=== PATIENT | female | born 1970 | race Caucasian/White ===

== ENCOUNTER → 2018-06-14 09:21 | Outpatient (CLI) | payer OTHER, SELFPAY ==
[2018-06-14 12:30] LABS: Absolute Lymphocyte Count 2.39 X10^3/ul (0.83-4.51); Absolute Neutrophil Count 4.3 X10^3/uL (2.0-7.7); Basophil# 0.03 X10^3/uL; Basophil% 0.4 % (0-1); Eosinophil# 0.13 X10^3/uL; Eosinophils% 1.8 % (0-5); Hematocrit 41.9 % (37-47); Hemoglobin 13.7 g/dl (12.0-15.0); Lymphocyte # 2.39 X10^3/ul (4.0); Lymphocyte % 32.7 % (19-41); Mean Corp Hgb Conc 32.7 g/gl (32-36); Mean Corpuscular Hgb 30.3 pg (27.0-32.0); Mean Corpuscular Volume 92.7 fL (81-99); Mean Platelet Vol. 9.5 fl (6.2-12.0); Monocyte# 0.42 X10^3/uL; Monocyte% 5.7 % (0-10); Neutrophil # 4.33 X10^3/uL (2.7-7.7); Neutrophil % 59.3 % (47-70); Platelet Count 305 K/mm3 (150-450); RBC Distribution Width CV 13.2 % (11.6-14.6); RBC Distribution Width SD 43.2 fl (35.1-43.9); Red Blood Count 4.52 M/mm3 (4.2-5.4); White Blood Count 7.3 K/mm3 (4.4-11.0)
[2018-06-14 12:37] LABS: POSITIVE COUNT NO; POSITIVE DIFFERENTIAL NO; POSITIVE MORPHOLOGY NO
[2018-06-14 12:43] LABS: Hemoglobin A1c 5.6 % (4.2-6.3)
[2018-06-14 12:49] LABS: Anion Gap 9 (5-15); BUN 13 mg/dL (7-18); BUN/Creat Ratio 16.5 RATIO (10-20); Calcium,Total 8.9 mg/dL (8.5-10.1); Chloride 102 mmol/L (98-107); Creatinine, Serum 0.79 mg/dL (0.55-1.02); EST Glomerular Filtration Rate 82 mL/min (>60); Est Glom Filt Rate - Afr Amer 100 mL/min (>60); Glucose 111 mg/dL (74-106); Potassium 3.7 mmol/L (3.5-5.1); Sodium Level 139 mmol/L (136-145)
== END ==
PROVIDERS: Family Provider Family Medicine; PCP Family Medicine; Visit Provider Family Medicine
DX: I10 Essential (primary) hypertension (principal); E87.6 Hypokalemia; R73.01 Impaired fasting glucose
CPT/HCPCS: 36415; 80048; 83036; 84443; 85025

== ENCOUNTER → 2018-12-06 | Outpatient (CLI) | payer OTHER, SELFPAY ==
--- NOTE | 2018-12-06 08:09 | BI_ITS ---
MAMMOGRAPHY - BILATERAL SCREENING 3-D TOMOSYNTHESIS REASON FOR EXAM: Female, 48 years old. Bilateral Screening 3-D tomosynthesis PERTINENT HISTORY: Breast cancer in paternal grandmother and several decade.. TECHNIQUE: 2-D mammograms and 3-D Tomosynthesis of the breast (s) were performed. CAD was performed. COMPARISON: July 04, 2017, September 28, 2011 FINDINGS: The breast composition is composed of scattered fibroglandular density. Scattered benign calcifications are seen. No dense spiculated masses or suspicious microcalcifications are identified. No architectural distortion is identified. There is no skin thickening or retraction. There has been no significant change since the prior study. BI/SCREEN MAMM (CAD) W/MIREYA BILAT IMPRESSION: No mammographic signs of malignancy. Routine yearly mammograms recommended. ASSESSMENT CATEGORY: BIRADS Category 2: Benign. A letter regarding these results will be sent to the patient by the facility within 30 days. FOLLOW UP RECOMMENDATION: Yearly follow up mammogram recommended. (A) Approximately 10% of breast cancers are not detected by mammography. A normal mammogram should not delay biopsy of a clinically suspicious abnormality. Electronically Signed: Nader Talavera MD at 17:54 EDT , Service support ,
== END | disposition home or self-care (01) ==
LOC: OPBI 08:07
PROVIDERS: Family Provider Family Medicine; PCP Family Medicine; Referring Provider Family Medicine; Visit Provider Family Medicine
DX: Z12.31 Encounter for screening mammogram for malignant neoplasm of breast (principal)
CPT/HCPCS: 77063; 77067

== ENCOUNTER → 2019-07-09 09:27 | Outpatient (CLI) | payer OTHER, SELFPAY ==
[2019-07-09 12:33] LABS: Absolute Lymphocyte Count 2.24 X10^3/uL (0.83-4.51); Absolute Neutrophil Count 4.6 X10^3/uL (2.0-7.7); Basophil# 0.03 X10^3/uL; Basophil% 0.4 % (0-1); Eosinophil# 0.19 X10^3/uL; Eosinophils% 2.5 % (0-5); Hematocrit 40.5 % (37-47); Lymphocyte # 2.24 X10^3/ul (4.0); Lymphocyte % 29.5 % (19-41); Mean Corp Hgb Conc 32.1 g/dL (32-36); Mean Corpuscular Volume 93.3 fL (81-99); Mean Platelet Vol. 9.5 fl (6.2-12.0); Monocyte% 6.6 % (0-10); NRBC Flagged by Analyzer 0 % (0-5); Neutrophil # 4.61 X10^3/uL (2.7-7.7); Neutrophil % 60.6 % (47-70); Platelet Count 283 K/mm3 (150-450); RBC Distribution Width CV 13.2 % (11.6-14.6); RBC Distribution Width SD 45.1 fl (35.1-43.9); Red Blood Count 4.34 M/mm3 (4.2-5.4); White Blood Count 7.6 K/mm3 (4.4-11.0)
[2019-07-09 12:48] LABS: ALB/GLOB Ratio 0.9 RATIO (0.9-2.4); AST(SGOT) 10 U/L (15-37); Alanine Aminotransfer ALT/SGPT 22 U/L (13-56); Albumin, Serum 3.7 g/dL (3.2-5.0); Alkaline Phosphatase 72 U/L (45-117); Anion Gap 3 (5-15); BUN 9 mg/dL (7-18); BUN/Creat Ratio 11.7 RATIO (10-20); Chloride 105 mmol/L (98-107); Creatinine, Serum 0.77 mg/dL (0.55-1.02); EST Glomerular Filtration Rate 85 mL/min (>60); Est Glom Filt Rate - Afr Amer 102 mL/min (>60); Globulin 4.2 g/dL (2.2-4.2); Glucose 101 mg/dL (74-106); Potassium 3.7 mmol/L (3.5-5.1); Protein, Total 7.9 g/dL (6.4-8.2); Sodium Level 138 mmol/L (136-145); Thyroid Stim Hormone (TSH) 2.58 uIU/mL (0.358-3.74)
== END ==
PROVIDERS: PCP Family Medicine; Visit Provider Family Medicine
DX: E87.6 Hypokalemia (principal); I10 Essential (primary) hypertension; R73.01 Impaired fasting glucose
CPT/HCPCS: 36415; 80053; 84443; 85025

== ENCOUNTER → 2020-01-07 | Outpatient (CLI) | payer OTHER, SELFPAY ==
--- NOTE | 2020-01-07 07:01 | BI_ITS ---
MAMMOGRAPHY - BILATERAL SCREENING REASON FOR EXAM: Female, 49 years old. Routine annual screening examination. PERTINENT HISTORY: Grandmother with breast cancer. TECHNIQUE: Digital bilateral breast mireya (3D mammographic acquisition) in the CC and MLO projections. 2-D mediolateral oblique (MLO) and craniocaudad (CC) views of both breasts were obtained. CAD: Full Field Digital Mammography with Computer Added Detection was performed. COMPARISON: Comparison is made with prior study dated 12/06/2018 and 07/04/2017. FINDINGS: Breast Composition: There are scattered areas of fibroglandular density. There are no dominant masses or suspicious calcifications. No other significant abnormalities are identified. There has been no significant change since the prior study. BI/SCREEN MAMM (CAD) W/MIREYA BILAT IMPRESSION: Stable bilateral screening mammogram. Yearly follow-up mammogram recommended. (A) ASSESSMENT CATEGORY: BIRADS Category 1: Negative. A letter regarding these results will be sent to the patient by the facility within 30 days. Approximately 10% of breast cancers are not detected by mammography. A normal mammogram should not delay biopsy of a clinically suspicious abnormality. [id number] Electronically Signed: Bobby Jerome, at 8:30 EDT , Service support ,
== END | disposition home or self-care (01) ==
LOC: OPBI 06:59
PROVIDERS: PCP Family Medicine; Referring Provider Family Medicine; Visit Provider Family Medicine
DX: Z12.31 Encounter for screening mammogram for malignant neoplasm of breast (principal)
CPT/HCPCS: 77063; 77067

== ENCOUNTER → 2020-02-12 | Outpatient (CLI) | payer OTHER, SELFPAY ==
[2020-02-12 15:49] VITALS: BMI 33.5
[2020-02-18 13:08] LABS: HPV APTIMA, High Risk Negative (Negative)
== END | disposition home or self-care (01) ==
PROVIDERS: PCP Family Medicine; Referring Provider Nurse Practitioner Women's Health; Visit Provider Nurse Practitioner Women's Health
DX: Z12.4 Encounter for screening for malignant neoplasm of cervix (principal)
CPT/HCPCS: 87624; 88175; G0145

== ENCOUNTER → 2020-05-20 | Outpatient (CLI) | payer OTHER, SELFPAY ==
[2020-02-12 15:49] VITALS: BMI 33.5
== END | disposition home or self-care (01) ==
LOC: LABSPEC 05-24 09:54
PROVIDERS: PCP Family Medicine; Referring Provider Family Medicine; Visit Provider Family Medicine
DX: J02.9 Acute pharyngitis, unspecified (principal); R09.81 Nasal congestion; R51.9 Headache, unspecified; Z03.818 Encounter for observation for suspected exposure to other biological agents ruled out
CPT/HCPCS: 87635; C9803; U0003

== ENCOUNTER → 2020-07-20 09:21 | Outpatient (CLI) | payer OTHER, SELFPAY ==
[2020-02-12 15:49] VITALS: BMI 33.5
[2020-07-20 13:08] LABS: Absolute Lymphocyte Count 2.51 X10^3/uL (0.83-4.51); Absolute Neutrophil Count 5.4 X10^3/uL (2.0-7.7); Basophil# 0.06 X10^3/uL; Basophil% 0.7 % (0-1); Eosinophil# 0.28 X10^3/uL; Eosinophils% 3.2 % (0-5); Hematocrit 40.7 % (37-47); Hemoglobin 13.6 g/dL (12.0-15.0); Lymphocyte # 2.51 X10^3/ul (4.0); Lymphocyte % 28.8 % (19-41); Mean Corp Hgb Conc 33.4 g/dL (32-36); Mean Corpuscular Hgb 31.1 pg (27.0-32.0); Mean Corpuscular Volume 92.9 fL (81-99); Mean Platelet Vol. 9.6 fl (6.2-12.0); Monocyte# 0.43 X10^3/uL; Monocyte% 4.9 % (0-10); NRBC Flagged by Analyzer 0 % (0-5); Neutrophil # 5.41 X10^3/uL (2.7-7.7); Neutrophil % 62.1 % (47-70); Platelet Count 339 K/mm3 (150-450); RBC Distribution Width CV 13.1 % (11.6-14.6); RBC Distribution Width SD 44.8 fl (35.1-43.9); Red Blood Count 4.38 M/mm3 (4.2-5.4); White Blood Count 8.7 K/mm3 (4.4-11.0)
[2020-07-20 13:17] LABS: Hemoglobin A1c 5.6 % (3.8-5.6)
[2020-07-20 13:28] LABS: Anion Gap 4 (5-15); BUN 13 mg/dL (7-18); BUN/Creat Ratio 17.2 RATIO (10-20); Calcium,Total 9.1 mg/dL (8.5-10.1); Chloride 106 mmol/L (98-107); Cholesterol 203 mg/dL (200); Creatinine, Serum 0.76 mg/dL (0.55-1.02); EST Glomerular Filtration Rate 86 mL/min (>60); Est Glom Filt Rate - Afr Amer 103 mL/min (>60); Glucose 114 mg/dL (74-106); High Density Lipoprotein 62 mg/dL; Potassium 3.7 mmol/L (3.5-5.1); Sodium Level 138 mmol/L (136-145); Thyroid Stim Hormone (TSH) 3.27 uIU/mL (0.358-3.74); Triglycerides 75 mg/dL; Very Low Density Lipoprotein 15 mg/dL (5-40)
== END ==
PROVIDERS: PCP Family Medicine; Visit Provider Family Medicine
DX: I10 Essential (primary) hypertension (principal); E87.6 Hypokalemia; R73.01 Impaired fasting glucose
CPT/HCPCS: 36415; 80048; 80061; 83036; 84443; 85025

== ENCOUNTER → 2021-01-11 07:03 | Outpatient (CLI) | payer OTHER, SELFPAY ==
[2020-08-25 09:22] VITALS: BMI 33.5
--- NOTE | 2021-01-11 07:05 | BI_ITS ---
MAMMOGRAPHY - BILATERAL SCREENING REASON FOR EXAM: Female, 50 years old. Routine annual screening examination. PERTINENT HISTORY: Screening TECHNIQUE: Digital bilateral breast mireya (3D mammographic acquisition) in the CC and MLO projections. 2-D mediolateral oblique (MLO) and craniocaudad (CC) views of both breasts were obtained. CAD: Full Field Digital Mammography with Computer Added Detection was performed. COMPARISON: 01/07/2020 FINDINGS: Breast Composition: Scattered There are no dominant masses or suspicious calcifications. No other significant abnormalities are identified. BI/SCRN MAMM (CAD)W/MIREYA BILAT IMPRESSION: Stable bilateral screening mammogram. Yearly follow-up mammogram recommended. (A) ASSESSMENT CATEGORY: BIRADS Category 1: Negative. A letter regarding these results will be sent to the patient by the facility within 30 days. Approximately 10% of breast cancers are not detected by mammography. A normal mammogram should not delay biopsy of a clinically suspicious abnormality. [id number] Electronically Signed: Eliseo Moses DO at 15:41 EDT Tel , Service support ,
== END ==
PROVIDERS: PCP Family Medicine; Visit Provider Nurse Practitioner Women's Health
DX: Z12.31 Encounter for screening mammogram for malignant neoplasm of breast (principal)
CPT/HCPCS: 77063; 77067

== ENCOUNTER → 2022-01-12 | Outpatient (CLI) | payer OTHER, SELFPAY ==
--- NOTE | 2022-01-12 07:32 | BI_ITS ---
MAMMOGRAPHY - BILATERAL SCREENING 3-D TOMOSYNTHESIS REASON FOR EXAM: Female, 51 years old. Annual screening mammogram. PERTINENT HISTORY: Paternal grandmother and 7 dictated. TECHNIQUE: 2-D mammograms and 3-D Tomosynthesis of the breast (s) were performed. CAD was performed. COMPARISON: 01/16/2021, 01/07/2020, 12/06/2018. FINDINGS: The breast composition is almost entirely fat. Stable scattered benign calcifications. No dense spiculated masses or suspicious microcalcifications are identified. No architectural distortion is identified. There is no skin thickening or retraction. BI/SCRN MAMM (CAD)W/MIREYA BILAT IMPRESSION: No interval change and no mammographic signs of malignancy. Routine yearly mammograms recommended. ASSESSMENT CATEGORY: BIRADS Category 2: Benign. A letter regarding these results will be sent to the patient by the facility within 30 days. FOLLOW UP RECOMMENDATION: Yearly follow up mammogram recommended. (A) Approximately 10% of breast cancers are not detected by mammography. A normal mammogram should not delay biopsy of a clinically suspicious abnormality. Electronically Signed: Nader Talavera MD at 15:17 EDT ,
== END | disposition home or self-care (01) ==
LOC: OPBI 07:31
PROVIDERS: PCP Family Medicine; Referring Provider Obstetrics & Gynecology; Visit Provider Obstetrics & Gynecology
DX: Z12.31 Encounter for screening mammogram for malignant neoplasm of breast (principal)
CPT/HCPCS: 77063; 77067

== ENCOUNTER → 2022-09-11 | Outpatient (CLI) | payer OTHER, SELFPAY ==
[2022-09-11 12:11] LABS: Absolute Lymphocyte Count 3.09 X10^3/uL (0.83-4.51); Absolute Neutrophil Count 4.2 X10^3/uL (2.0-7.7); Basophil# 0.05 X10^3/uL; Basophil% 0.6 % (0-1); Eosinophil# 0.16 X10^3/uL; Hematocrit 40.9 % (37-47); Lymphocyte # 3.09 X10^3/ul (0.83-4.51); Mean Corp Hgb Conc 31.8 g/dL (32-36); Mean Corpuscular Hgb 29.6 pg (27.0-32.0); Mean Corpuscular Volume 93.2 fL (81-99); Mean Platelet Vol. 9.6 fl (6.2-12.0); Monocyte# 0.38 X10^3/uL; Monocyte% 4.8 % (0-10); NRBC Flagged by Analyzer 0 % (0-5); Neutrophil # 4.21 X10^3/uL (2.7-7.7); Neutrophil % 53.2 % (47-70); Platelet Count 307 K/mm3 (150-450); RBC Distribution Width CV 13.6 % (11.6-14.6); RBC Distribution Width SD 46.3 fl (35.1-43.9); Red Blood Count 4.39 M/mm3 (4.2-5.4); White Blood Count 7.9 K/mm3 (4.4-11.0)
[2022-09-11 12:14] LABS: ALB/GLOB Ratio 0.9 RATIO (0.9-2.4); AST(SGOT) 18 U/L (15-37); Alanine Aminotransfer ALT/SGPT 24 U/L (13-56); Albumin, Serum 3.7 g/dL (3.2-5.0); Alkaline Phosphatase 82 U/L (45-117); Anion Gap 5 (5-15); BUN 11 mg/dL (7-18); BUN/Creat Ratio 13.9 RATIO (10-20); Calcium,Total 9.7 mg/dL (8.5-10.1); Chloride 106 mmol/L (98-107); Cholesterol 184 mg/dL (200); Creatinine, Serum 0.79 mg/dL (0.55-1.02); EST Glomerular Filtration Rate 81 mL/min (>60); Est Glom Filt Rate - Afr Amer 97 mL/min (>60); Globulin 4.2 g/dL (2.2-4.2); Glucose 130 mg/dL (74-106); High Density Lipoprotein 56 mg/dL; Potassium 3.9 mmol/L (3.5-5.1); Protein, Total 7.9 g/dL (6.4-8.2); Sodium Level 140 mmol/L (136-145); Triglycerides 128 mg/dL; Very Low Density Lipoprotein 26 mg/dL (5-40)
== END | disposition home or self-care (01) ==
LOC: BIMLAB 09:00
PROVIDERS: PCP Internal Medicine; Referring Provider Internal Medicine; Visit Provider Internal Medicine
DX: I10 Essential (primary) hypertension (principal); R73.09 Other abnormal glucose
CPT/HCPCS: 36415; 80053; 80061; 83036; 85025

== ENCOUNTER 2023-01-10 09:35 | Day surgery (SDC) | payer OTHER, SELFPAY ==
[2023-01-10] VITALS (7 sets, daily range): BP systolic 112–160; BP diastolic 73–91; PULSE 67–81; RESP 16–18; TEMP 36.5–37.1; O2SAT 98–100; BMI 33.2
[2023-01-10] MEDS: Lactated Ringers 1,000 ML 15 ML IV (10:02)
--- NOTE | 2023-01-10 10:07 | HP.PCM_ITS ---
[facility] - General General Date of Admission: 01/10/23 Date of Service: 01/10/23 Chief Complaint: Screening colonoscopy [facility] Narrative WERO BURTON, is a 52 F who presents today for screening colonoscopy. She has past medical history of mild hypertension. She does not have any abdominal pain. She is not having nausea vomiting or diarrhea. She does not have any lower GI bleeding or change in bowel habits. Overall she feels very well. PENDING SALE TO [facility] Medical History Alcohol use Non-smoker Osteoarthritis Seasonal allergies Wears glasses Home Medications hydrochlorothiazide 25 mg tablet 25 mg PO DAILY #30 tabs 02/18/17 [Rx Last Taken Unknown] potassium chloride 10 mEq capsule,extended release 20 meq PO DAILY 08/23/22 [History Last Taken Unknown] Allergy/AdvReac Type Severity Reaction Status Date / Time tree and shrub pollen Allergy Mild SINUS Verified 01/10/23 09:52 CONGESTION Family History Father Pancreatic cancer Mother Hypertension Arthritis Multiple myeloma Crohn disease Osteoporosis Thyroid disorder Grandmother Breast cancer Brother Hypertension Grandmother COPD (chronic obstructive pulmonary disease) Surgical History History of hip replacement History of release of tendon uterine ablation uterine fibroid removal Social History adopted: No household members: spouse and children number of children: 3 current occupational status: employed current occupation: teacher - [employer] history of recent travel: No sexually active: Yes Smoking Status: Never smoker Electronic Cigarette Use: not used alcohol intake: current alcohol intake frequency: holidays/special occasions only substance use type: does not use what type of physical activity do you participate in: walking, yoga and weight training frequency: 1-2 times per week seatbelt use: always do you feel safe at home: Yes additional social history: - [place] ROS Review of Systems ROS Unobtainable: other Constitutional Constitutional: Denies fatigue, fever(s), poor appetite, weight gain or weight loss ENT HEENT: Denies mouth lesions Cardiovascular Cardiovascular: Denies abdominal bloating, abdominal edema or abdominal pain Respiratory/Chest Respiratory/Chest: Denies change in mental status, change in phlegm color, chest congestion or chest tightness Gastrointestinal Gastrointestinal: Denies belching, bloating, change in bowel habits, change in stool character, chewing difficulty, coffee ground emesis, constipation, cramping, diarrhea, dyspepsia, dysphagia, early satiety, excessive flatus, fecal incontinence, heartburn, hematemesis, hematochezia, hemorrhoids, loose stools, melena, nausea, odynophagia, rectal bleeding, tenesmus, vomiting or weight changes Genitourinary Genitourinary: Denies abdominal discomfort, burning urination or itching Musculoskeletal Musculoskeletal: Reports as per HPI; Denies muscle weakness or myalgias Integumentary Integumentary: Denies jaundice Neurologic Neurologic: Denies lack of coordination or weakness Psychiatric Psychiatric: Denies confusion, depression, memory loss, mood swings, paranoia or suicidal ideation Endocrine Endocrinology: Denies systems reviewed and no addt'l complaints, except as documented Hematologic/Lymphatic Hematologic/Lymphatic: Denies anemia, easy bleeding, easy bruising or l ymphadenopathy Allergic/Immunologic Allergic/Immunologic: Denies systems reviewed and no addt'l complaints, except as documented Vital Signs Vital Signs Vital Signs: 01/10/23 09:52 01/10/23 09:52 Temperature 97.8 F Temperature Source Temporal Pulse Rate 81 Respiratory Rate 18 Respiratory Pattern Normal Blood Pressure 160/91 H Blood Pressure Mean 114 Blood Pressure Source Monitor Blood Pressure Position Semi-Fowlers Blood Pressure Location Right Arm Pulse Ox 99 Oxygen Delivery Method Room Air Weight Weight: 238 lb 1.588 oz Body Mass Index (BMI) 33.2 Physical Exam Const alert General Appearance: cooperative Orientation / Consciousness: oriented to person HEENT hearing grossly normal bilaterally Head and Scalp: normal to inspection Face and Sinus: face symmetric Nose: external nose normal Mouth: oral and palatal mucosa normal Eyes conjunctivae normal General Eye: normal appearance of both eyes Neck full ROM General: normal visual inspection Lymph Lymphatic: no lymphadenopathy noted Chest inspection of chest normal and palpation of chest normal Chest: symmetrical chest wall rise Resp normal respiratory effort Effort and Inspection: able to speak in complete sentences Cardio regular rate GI non-distended Percussion: normal to percussion Rectal Exam: deferred Neuro Speech: speech normal Gait (Neuro): normal gait Assessment & Plan Assessment/Plan (1) Encounter for screening for malignant neoplasm of colon: PLAN: She was explained alternatives, risk, benefits including not withstanding bleeding, infection, sepsis, perforation, need for emergent surgery . She will have an ASA of 2.
--- NOTE | 2023-01-10 11:26 | OP.CCLET_ITS ---
01/10/2023 Princess Souza Md Re : Colonoscopy procedure for Kell Emery Dear Harley This procedure was performed on Tuesday, January 10, 2023. My impressions and recommendations are as follows: Impressions : - Diverticulosis in the recto-sigmoid colon. - The examination was otherwise normal on direct and retroflexion views. - No specimens collected. Recommendations : - Discharge patient to home. - Resume regular diet. - Continue present medications. - Repeat colonoscopy in 10 years for screening purposes. My findings are described in the full procedure note, which is enclosed. If I can be of further assistance, please feel free to contact me at . Sincerely, Dexter Tao, 01/10/2023 11:26:09 AM This report has been signed electronically.
--- NOTE | 2023-01-10 11:26 | OP.COLON_ITS ---
Patient Name: Kell Emery Procedure Date: 01/10/2023 10:55 AM Date of : 1970 Age: 52 Procedure: Colonoscopy Indications: Screening for colorectal malignant neoplasm Providers: Dexter Tao DO Referring MD: Princess Souza Md Medicines: Monitored Anesthesia Care Patient Profile: This is a 52 year old female. Refer to note in patient chart for documentation of history and physical. Last Colonoscopy: none. The patient's first colonoscopy is today. Complications: No immediate complications. Procedure: Pre-Anesthesia Assessment: - Prior to the procedure, a History and Physical was performed, and patient medications and allergies were reviewed. The patient is competent. The risks and benefits of the procedure and the sedation options and risks were discussed with the patient. All questions were answered and informed consent was obtained. Patient identification and proposed procedure were verified by the physician in the pre-procedure area. Mental Status Examination: alert and oriented. Airway Examination: normal oropharyngeal airway and neck mobility. Respiratory Examination: clear to auscultation. CV Examination: normal. Prophylactic Antibiotics: The patient does not require prophylactic antibiotics. Prior Anticoagulants: The patient has taken no previous anticoagulant or antiplatelet agents. ASA Grade Assessment: II - A patient with mild systemic disease. After reviewing the risks and benefits, the patient was deemed in satisfactory condition to undergo the procedure. The anesthesia plan was to use monitored anesthesia care (MAC). Immediately prior to administration of medications, the patient was re-assessed for adequacy to receive sedatives. The heart rate, respiratory rate, oxygen saturations, blood pressure, adequacy of pulmonary ventilation, and response to care were monitored throughout the procedure. The physical status of the patient was re-assessed after the procedure. After I obtained informed consent, the scope was passed under direct vision. Throughout the procedure, the patient's blood pressure, pulse, and oxygen saturations were monitored continuously. The Colonoscope was introduced through the anus and advanced to the cecum, identified by appendiceal orifice and ileocecal valve. The colonoscopy was performed without difficulty. The patient tolerated the procedure well. The quality of the bowel preparation was good. Scope In: 11:05:28 AM Scope Withdrawal Time 0 hours 9 minutes 7 seconds Scope Out: 11:17:30 AM Total Procedure Duration Time 0 hours 12 minutes 2 seconds Findings: The perianal and digital rectal examinations were normal. A few small-mouthed diverticula were found in the recto-sigmoid colon. The exam was otherwise without abnormality on direct and retroflexion views. Impression: - Diverticulosis in the recto-sigmoid colon. - The examination was otherwise normal on direct and retroflexion views. - No specimens collected. Recommendation: - Discharge patient to home. - Resume regular diet. - Continue present medications. - Repeat colonoscopy in 10 years for screening purposes. Procedure Code(s): --- Professional --- G0121, Colorectal cancer screening; colonoscopy on individual not meeting criteria for high risk CPT copyright 2017 [employer]. All rights reserved. The codes documented in this report are preliminary and upon residential treatment specialist review may be revised to meet current compliance requirements. Dexter Tao DO 01/10/2023 11:26:09 AM This report has been signed electronically. Number of Addenda: 0 Note Initiated On: 01/10/2023 10:55 AM
== END 2023-01-10 12:04 | disposition home or self-care (01) ==
LOC: EN 09:36 → AC 09:53
PROVIDERS: PCP Internal Medicine; Referring Provider Internal Medicine; Visit Provider Internal Medicine Gastroenterology
PROC: 0DJD8ZZ Inspection of Lower Intestinal Tract, Via Natural or Artificial Opening Endoscopic (ICD-10-PCS; CPT 45378; principal; 2023-01-10 10:25)
DX: Z12.11 Encounter for screening for malignant neoplasm of colon (principal); I10 Essential (primary) hypertension; K57.30 Diverticulosis of large intestine without perforation or abscess without bleeding; Z79.899 Other long term (current) drug therapy; N95.1 Menopausal and female climacteric states; M19.90 Unspecified osteoarthritis, unspecified site
CPT/HCPCS: 45378; J7120; J2405

== ENCOUNTER → 2023-02-26 | Outpatient (CLI) | payer OTHER, SELFPAY ==
--- NOTE | 2023-02-26 07:16 | BI_ITS ---
MAMMOGRAPHY - BILATERAL SCREENING REASON FOR EXAM: Female, 52 years old. Routine annual screening examination. PERTINENT HISTORY: Grandmother with breast cancer. TECHNIQUE: Digital bilateral breast mireya (3D mammographic acquisition) in the CC and MLO projections. 2-D mediolateral oblique (MLO) and craniocaudad (CC) views of both breasts were obtained. CAD: Full Field Digital Mammography with Computer Added Detection was performed. COMPARISON: Comparison is made with prior study January 12, 2022. FINDINGS: Breast Composition: There are scattered areas of fibroglandular density. There are no dominant masses or suspicious calcifications. No other significant abnormalities are identified. There has been no significant change since the prior study. BI/SCRN MAMM (CAD)W/MIREYA BILAT IMPRESSION: Stable bilateral screening mammogram. Yearly follow-up mammogram recommended. (A) ASSESSMENT CATEGORY: BIRADS Category 1: Negative. A letter regarding these results will be sent to the patient by the facility within 30 days. Approximately 10% of breast cancers are not detected by mammography. A normal mammogram should not delay biopsy of a clinically suspicious abnormality. [id number] Electronically Signed: Bobby Jerome MD at 9:20 EDT ,
== END | disposition home or self-care (01) ==
LOC: OPBI 07:15
PROVIDERS: PCP Internal Medicine; Referring Provider Obstetrics & Gynecology; Visit Provider Obstetrics & Gynecology
DX: Z12.31 Encounter for screening mammogram for malignant neoplasm of breast (principal)
CPT/HCPCS: 77063; 77067

== ENCOUNTER → 2023-09-03 | Outpatient (CLI) | payer OTHER, SELFPAY ==
--- NOTE | 2023-09-03 06:24 | EKG12_ITS ---
Test Reason : OBESITY, MEDS Blood Pressure : / mmHG Vent. Rate : 069 BPM Atrial Rate : 069 BPM P-R Int : 136 ms QRS Dur : 084 ms QT Int : 404 ms P-R-T Axes : 059 043 033 degrees QTc Int : 432 ms Normal sinus rhythm Normal ECG Confirmed by DECLAN WILSON, SHIREEN ([id number]), web editor TERI FERRARI ([id number]) on 09/04/2023 9:14:21 AM Referred By: Chrystal Tinajero Confirmed By:SHIREEN MANRIQUEZ MD
[2023-09-03 07:02] LABS: Absolute Neutrophil Count 5.3 X10^3/uL (2.0-7.7); Basophil# 0.05 X10^3/uL; Basophil% 0.5 % (0-1); Eosinophil# 0.21 X10^3/uL; Eosinophils% 2.3 % (0-5); Hematocrit 42.4 % (37-47); Hemoglobin 13.7 g/dL (12.0-15.0); Lymphocyte % 34.3 % (19-41); Mean Corp Hgb Conc 32.3 g/dL (32-36); Mean Corpuscular Hgb 29.6 pg (27.0-32.0); Mean Corpuscular Volume 91.6 fL (81-99); Mean Platelet Vol. 9.3 fl (6.2-12.0); Monocyte% 5.4 % (0-10); NRBC Flagged by Analyzer 0 % (0-5); Neutrophil # 5.33 X10^3/uL (2.7-7.7); Neutrophil % 57.2 % (47-70); Platelet Count 324 K/mm3 (150-450); RBC Distribution Width CV 13.2 % (11.6-14.6); RBC Distribution Width SD 44.3 fl (35.1-43.9); Red Blood Count 4.63 M/mm3 (4.2-5.4); White Blood Count 9.3 K/mm3 (4.4-11.0)
[2023-09-03 07:58] LABS: ALB/GLOB Ratio 0.8 RATIO (0.9-2.4); AST(SGOT) 16 U/L (15-37); Alanine Aminotransfer ALT/SGPT 21 U/L (13-56); Albumin, Serum 3.7 g/dL (3.2-5.0); Alkaline Phosphatase 86 U/L (45-117); Anion Gap 6 (5-15); BUN 14 mg/dL (7-18); BUN/Creat Ratio 15.8 RATIO (10-20); Calcium,Total 9.2 mg/dL (8.5-10.1); Chloride 107 mmol/L (98-107); Cholesterol 179 mg/dL (200); Creatinine, Serum 0.89 mg/dL (0.55-1.02); EST Glomerular Filtration Rate 70 mL/min (>60); Est Glom Filt Rate - Afr Amer 85 mL/min (>60); Globulin 4.4 g/dL (2.2-4.2); Glucose 142 mg/dL (74-106); High Density Lipoprotein 60 mg/dL; Potassium 3.4 mmol/L (3.5-5.1); Protein, Total 8.1 g/dL (6.4-8.2); Sodium Level 141 mmol/L (136-145); Thyroid Stim Hormone (TSH) 3.17 uIU/mL (0.358-3.74); Triglycerides 73 mg/dL; Very Low Density Lipoprotein 15 mg/dL (5-40)
[2023-09-03 08:57] LABS: Hemoglobin A1c 5.8 % (3.8-5.6)
[2023-09-05 12:09] LABS: Vitamin D 1,25-Dihydroxy 56.6 pg/mL (24.8-81.5)
== END | disposition home or self-care (01) ==
PROVIDERS: PCP Internal Medicine; Referring Provider Obstetrics & Gynecology; Visit Provider Obstetrics & Gynecology
DX: E66.8 Other obesity (principal)
CPT/HCPCS: 36415; 80053; 80061; 82652; 83036; 84443; 85025; 93005

== ENCOUNTER → 2024-02-28 | Outpatient (CLI) | payer OTHER, SELFPAY ==
--- NOTE | 2024-02-28 15:32 | BI_ITS ---
MAMMOGRAPHY - BILATERAL SCREENING REASON FOR EXAM: Female, 53 years old. Routine annual screening examination. PERTINENT HISTORY: Grandmother with breast cancer. TECHNIQUE: Digital bilateral breast mireya (3D mammographic acquisition) in the CC and MLO projections. 2-D mediolateral oblique (MLO) and craniocaudad (CC) views of both breasts were obtained. CAD: Full Field Digital Mammography with Computer Added Detection was performed. COMPARISON: Comparison is made with prior study via February 26, 2023 and January 12, 2022. FINDINGS: Breast Composition: There are scattered areas of fibroglandular density. There are no dominant masses or suspicious calcifications. No other significant abnormalities are identified. There has been no significant change since the prior study. BI/SCRN MAMM (CAD)W/MIREYA BILAT IMPRESSION: Stable bilateral screening mammogram. Yearly follow-up mammogram recommended. (A) ASSESSMENT CATEGORY: BIRADS Category 1: Negative. A letter regarding these results will be sent to the patient by the facility within 30 days. Approximately 10% of breast cancers are not detected by mammography. A normal mammogram should not delay biopsy of a clinically suspicious abnormality. [id number] Electronically Signed: Bobby Jerome MD at 8:28 EDT ,
== END | disposition home or self-care (01) ==
LOC: OPBI 15:32
PROVIDERS: Referring Provider Obstetrics & Gynecology; Visit Provider Obstetrics & Gynecology
DX: Z12.31 Encounter for screening mammogram for malignant neoplasm of breast (principal)
CPT/HCPCS: 77063; 77067

== ENCOUNTER → 2024-05-29 | Outpatient (CLI) | payer OTHER, SELFPAY ==
[2024-05-29 12:04] LABS: Absolute Lymphocyte Count 2.77 X10^3/uL (0.83-4.51); Basophil# 0.05 X10^3/uL; Basophil% 0.7 % (0-1); Eosinophil# 0.21 X10^3/uL; Eosinophils% 2.8 % (0-5); Hemoglobin 13.6 g/dL (12.0-15.0); Lymphocyte # 2.77 X10^3/ul (0.83-4.51); Lymphocyte % 37.1 % (19-41); Mean Corp Hgb Conc 33.2 g/dL (32-36); Mean Corpuscular Hgb 30.2 pg (27.0-32.0); Mean Corpuscular Volume 90.9 fL (81-99); Mean Platelet Vol. 9.4 fl (6.2-12.0); Monocyte# 0.37 X10^3/uL; NRBC Flagged by Analyzer 0 % (0-5); Neutrophil # 4.03 X10^3/uL (2.7-7.7); Neutrophil % 53.9 % (47-70); Platelet Count 282 K/mm3 (150-450); RBC Distribution Width CV 13.2 % (11.6-14.6); Red Blood Count 4.51 M/mm3 (4.2-5.4); White Blood Count 7.5 K/mm3 (4.4-11.0)
[2024-05-29 12:24] LABS: ALB/GLOB Ratio 0.9 RATIO (0.9-2.4); AST(SGOT) 16 U/L (15-37); Alanine Aminotransfer ALT/SGPT 23 U/L (13-56); Albumin, Serum 3.7 g/dL (3.2-5.0); Alkaline Phosphatase 72 U/L (45-117); Anion Gap 4 (5-15); BUN 11 mg/dL (7-18); BUN/Creat Ratio 13.7 RATIO (10-20); Calcium,Total 9.3 mg/dL (8.5-10.1); Chloride 110 mmol/L (98-107); EST Glomerular Filtration Rate 79 mL/min (>60); Est Glom Filt Rate - Afr Amer 95 mL/min (>60); Globulin 3.9 g/dL (2.2-4.2); Glucose 118 mg/dL (74-106); Potassium 3.7 mmol/L (3.5-5.1); Protein, Total 7.6 g/dL (6.4-8.2); Sodium Level 141 mmol/L (136-145); Vitamin B12 378 pg/mL (211-911); Vitamin D,25 Hydroxy 30.7 ng/mL
== END | disposition home or self-care (01) ==
LOC: BWCLAB 11:00
PROVIDERS: Referring Provider Nurse Practitioner Family; Visit Provider Nurse Practitioner Family
DX: Z13.21 Encounter for screening for nutritional disorder (principal); E66.9 Obesity, unspecified; R73.03 Prediabetes
CPT/HCPCS: 36415; 80053; 82306; 82607; 85025

== ENCOUNTER → 2024-10-07 | Outpatient (CLI) | payer OTHER, SELFPAY | END | disposition home or self-care (01) | LOC: BIMLAB 08:10 | PROVIDERS: PCP Internal Medicine; Visit Provider Internal Medicine | DX: Z01.84 Encounter for antibody response examination (principal) | CPT/HCPCS: 36415; 86765 ==

== ENCOUNTER → 2025-03-18 | Outpatient (CLI) | payer OTHER, SELFPAY ==
--- NOTE | 2025-03-18 07:30 | BI_ITS ---
EXAM: SCRN MAMM (CAD)W/MIREYA BILAT DATE: 03/18/2025 CLINICAL HISTORY: F, Age 54 y/o , SCREENING Grandmother with breast cancer. TECHNIQUE: Procedure Code: [id number] Modality: MG Procedure: SCRN MAMM (CAD)W/MIREYA BILAT COMPARISON: Prior exam(s) dated February 28, 2024.. FINDINGS: TISSUE DENSITY: There are scattered areas of fibroglandular density. Bilateral Breast Mammographic Findings: No significant masses, calcifications or other abnormalities are identified. No suspicious masses, areas of developing architectural distortion, or suspicious calcifications. There has been no significant interval change. BI/SCRN MAMM (CAD)W/MIREYA BILAT IMPRESSION: Stable bilateral screening mammogram. OVERALL FINAL ASSESSMENT BI-RADS 1: NEGATIVE. RECOMMENDATION: Routine annual follow-up in 1 Year Additional Recommendation none A letter with findings and recommendations will be mailed to the patient. Reading Location: [facility]
== END | disposition home or self-care (01) ==
LOC: OPBI 07:28
PROVIDERS: PCP Internal Medicine; Referring Provider Internal Medicine; Visit Provider Internal Medicine
DX: Z12.31 Encounter for screening mammogram for malignant neoplasm of breast (principal)
CPT/HCPCS: 77063; 77067

== ENCOUNTER → 2025-05-06 | Outpatient (CLI) | payer OTHER, SELFPAY ==
--- OUTSIDE RECORDS SUMMARY | 2025-05-06 06:46 | XMS RPT_ITS | CCD ---
Author Organization [facility] Care Team Providers Care Mount Loader Name Role Phone LAURA Almeida RN, Shereen Hidalgo Unavailable Jarek Tinajero MD, Chrystal Pitts Unavailable [phone] Brandon DIRECTOR SECURITY MANAGEMENT, Mayela Natarajan Unavailable [phone] LAURA Almeida RN, Shereen Hidalgo Unavailable Jarek Taylor DIRECTOR SECURITY MANAGEMENT, Mayela S Unavailable Lee Hess MD Unavailable Unavailable Primary Care Provider Jarek ZAIDI MD, DANIAL Primary Care Physician [phone] LEE HESS MD Attending DANIAL Lau MD Primary Care Unavailable LEE HESS MD Referring Dr. Danial Lau Primary Care Provider Dr. Danial Zaidi Referring Provider Dr. Princess Souza Attending Provider [phone] Dr. Princess Souza Primary Care Provider Mady Andre Attending Provider Unavailable Dr. Princess Souza Referring Provider [phone] Friend, Dr. Renteria Attending Provider [phone] Friend, Dr. Renteria Other Provider [phone] Princess Souza Primary Care Provider Dr. Princess Souza Referring Provider [phone] Dr. Chrystal Tinajero Attending Provider [phone] DILLAN NOLAND Attending Unavailable Renu DIRECTOR SECURITY MANAGEMENT-C, Sonia Attending Provider [phone] Lior WILSON, Dr. Jarrell Attending Provider Harley WILSON, Dr. Sánchez Attending Provider Harley WILSON, Dr. Sánchez Primary Care Provider [phone] Renu DIRECTOR SECURITY MANAGEMENT-C, Sonia Attending Provider [phone] Harley WILSON, Dr. Sánchez Referring Provider Renu DIRECTOR SECURITY MANAGEMENT-C, Sonia Attending Provider [phone] Harley WILSON, Dr. Sánchez Primary Care Provider [phone] Renu DIRECTOR SECURITY MANAGEMENT-C, Sonia Attending Provider [phone] Harley WILSON, Dr. Sánchez Primary Care Physician Renu DIRECTOR SECURITY MANAGEMENT-C, Sonia Attending Physician [phone] Harley WILSON, Dr. Sánchez Attending Physician [phone] Harley WILSON, Dr. Sánchez Primary Care Physician Harley WILSON, Dr. Sánchez Referring Provider Renu DIRECTOR SECURITY MANAGEMENT-C, Sonia Attending Physician [phone] Harley, Princess Primary Care Unavailable [place], Princess Attending Unavailable Barkman, Sonia Attending Unavailable Barkman, Sonia Referring Unavailable Barkman, Sonia Attending Unavailable Harley, Princess Attending Unavailable Harley, Princess Referring Unavailable [place], Princess Primary Care Unavailable Barkman, Sonia Attending Unavailable [place], Princess Referring Unavailable [place], Princess Primary Care Unavailable Barkman, Sonia Attending Unavailable [place], Princess Referring Unavailable [place], Princess Primary Care Unavailable Barkman, Sonia Attending Unavailable [place], Princess Referring Unavailable Harley, Princess Primary Care Unavailable Barkman, Sonia Attending Unavailable Harley, Princess Primary Care Unavailable Barkman, Sonia Attending Unavailable Harley, Princess Referring Unavailable Harley, Princess Attending Unavailable [place], Princess Primary Care Unavailable [place], Princess Referring Unavailable Chrystal Tinajero Attending Unavailable Sonia Sears Attending Unavailable Sonia Sears Attending Unavailable Chrystal Tinajero Attending Unavailable Sonia Sears Attending Unavailable [place], Princess Attending Unavailable [place], Princess Referring Unavailable Harley, Princess Primary Care Unavailable [place], Princess Primary Care Unavailable [place], Princess Attending Unavailable [place], Princess Referring Unavailable Allergies Allergy Classification Reported Allergen(s) Allergy Type Date of Onset Reaction(s) Facility (1 source) PLANT POLLENS; Translations: [PLANT POLLENS] allergy to substance 6 [facility] Work Phone: (11 sources) Tree and shrub pollen; Translations: [tree and shrub pollen] Allergy to substance 3 SINUS CONGESTION [facility] Medications Current Medications Medication Drug Class(es) Dates Sig (Normalized) Sig (Original) Lactobacillus Combination No.4 (Probiotic) 3 billion cell capsule (1 source) Start: 04-09-2025 take 3 capsules by mouth once daily phentermine hydrochloride 37.5 mg oral tablet (20 sources) Sympathomimetic Amine Anorectic Start: 04-09-2025 Start: 06-26-2024 End: 04-09-2025 Phentermine (Adipex-P) 37.5 mg tablet Discontinued 18.75 mg PO daily 16 August 25, 2024 4:45pm September 24, 2024 3:52pm BMI 31 Start: 09-13-2023 End: 12-20-2023 Phentermine (Adipex-P) 37.5 mg tablet Discontinued 18.75 mg PO daily 15 October 11, 2023 1:41pm October 25, 2023 4:32pm BMI 37 potassium chloride 10 meq extended release oral capsule (20 sources) Start: 04-08-2025 take 2 capsules by m outh once daily Start: 01-05-2025 take 2 capsules by m outh once daily Potassium Chloride 10 mEq capsule, extended release Active 20 meq PO DAILY 180 0 January 05, 2025 8:59am Start: 07-08-2024 End: 10-15-2024 take 2 capsules by mouth once daily Potassium Chloride 10 mEq capsule, extended release Discontinued 20 meq PO DAILY 180 0 July 08, 2024 9:53am October 15, 2024 7:42am Start: 04-28-2024 End: 04-08-2025 take 2 capsules by mouth once daily Potassium Chloride 10 mEq capsule, extended release Discontinued 20 meq PO DAILY 180 0 October 15, 2024 7:42am January 05, 2025 8:59am Start: 08-23-2022 End: 04-13-2024 take 2 capsules by mouth once daily Potassium Chloride 10 mEq capsule, extended release Discontinued 20 meq PO DAILY 180 90 0 January 14, 2024 7:51am April 12, 2024 12:00am April 13, 2024 12:08am Start: 08-23-2022 End: 09-05-2023 take 20 mEq by mouth once daily Potassium Chloride Act naya 20 MEQ PO DAILY 90 September 05, 2023 8:26am Start: 04-12-2020 POTASSIUM CHLO RIDE ER 20 MEQ CR-TABS 1 tablet daily POTASSIUM CHLORIDE [id number] Rimma Zabala LPN Start: 02-12-2020 End: 08-23-2022 take 1 capsule by mouth once daily Potassium Chloride 10 mEq capsule, extended release Discontinued 10 meq PO DAILY February 12, 2020 12:00am August 23, 2022 3:09pm Completed/Discontinued Medications Medication Drug Class(es) Dates Sig (Normalized) Sig (Original) 24 hr buPROPion hydrochloride 150 mg extended release oral tablet (10 sources) Aminoketone Start: 2 End: 3 take 1 tablet by mouth once daily in the morning Bupropion Hcl (Wellbutrin Xl) 150 mg tablet extended release 24 hr Discontinued 150 mg PO EVERY MORNING 30 5 March 22, 2022 12:00am August 23, 2022 3:08pm cholecalciferol 0.05 mg oral capsule (11 sources) Vitamin D Start: 1 End: 3 take 1 capsule by mouth once daily Cholecalciferol (Vitamin D3) 50 mcg (2,000 unit) capsule Discontinued 50 ug PO DAILY February 21, 2021 12:00am August 23, 2022 3:08pm gabapentin 300 mg oral capsule (10 sources) Anti-epileptic Agent Start: 2 End: 3 take 1 capsule by mouth at bedtime Gabapentin 300 mg capsule Discontinued 300 mg PO AT BEDTIME 30 March 22, 2022 12:00am August 23, 2022 3:08pm hydroCHLOROthiazide 25 mg oral tablet (20 sources) Thiazide Diuretic Start: 7 End: 5 take 1 tablet by mouth once daily Hydrochlorothiazide 25 mg tablet Discontinued 25 mg PO DAILY 90 September 01, 2024 12:43pm February 16, 2025 8:21am meloxicam 15 mg oral tablet (10 sources) Nonsteroidal Anti-inflammator y Drug Start: 2 End: 3 take 1 tablet by mouth once daily Meloxicam 15 mg tablet Discontinued 15 mg PO DAILY March 22, 2022 12:00am August 23, 2022 3:09pm Semaglutide (7 sources) Start: 3 End: Semaglutide (Ozempic) 0.25 mg or 0.5 mg (2 mg/3 mL) pen injector Discontinued 0.25 mg SC EVERY WEEK March 15, 2023 12:00am April 02, 2023 8:16am Prediabetes Obesity with body mass index (BMI) of 30.0 to 39.9 Prediabetes Obesity, unspecified for 4 weeks Start: 03-15-2023 End: 04-02-2023 Semaglutide (Ozempic) 0.25 m g or 0.5 mg (2 mg/3 mL) pen injector Discontinued 0.25 mg SC EVERY WEEK March 15, 2023 12:00am April 02, 2023 8:16am for 4 weeks Start: 03-15-2023 End: 04-02-2023 Semaglutide (Ozempic) 0.25 m g or 0.5 mg (2 mg/3 mL) pen injector Discontinued 0.25 MG SC EVERY WEEK March 15, 2023 12:00am April 02, 2023 8:16am for 4 weeks topiramate 25 mg oral tablet (20 sources) Start: 05-29-2024 End: 10-07-2024 take 1 tablet by mouth twice daily Topiramate 25 mg tablet Discontinued 25 mg PO TWICE A DAY 60 30 August 13, 2024 6:16pm October 07, 2024 3:05pm Start: 04-16-2024 End: 05-29-2024 take 1 tablet by mouth twice daily Topiramate 50 mg tablet Discontinued 50 mg PO TWICE A DAY 120 60 1 April 16, 2024 10:02am May 29, 2024 11:53am Start: 10-31-2023 End: 04-16-2024 take 1 tablet by mouth twice daily Topiramate (Topamax) 25 mg tablet Discontinued 25 mg PO TWICE A DAY 180 90 3 November 01, 2023 9:15am April 16, 2024 10:03am Start: 04-02-2023 End: 10-31-2023 take 2 tablets by mouth once daily Topiramate (Topamax) 25 mg tablet Discontinued 25 mg PO DAILY 90 3 July 17, 2023 9:12am October 25, 2023 4:32pm take daily for a week then increase to 2 a day Problems Active Problems Problem Classification Problem Date Documented Date Episodic/Chronic Adjustment disorders (1 source) Grief finding; Translations: [Adjustment disorder with depressed mood] 04-09-2025 Chronic Diabetes mellitus without complication (20 sources) Other abnormal glucose; Translations: [Other abnormal glucose] Onset: 5 08-23-2022 Episodic Essential hypertension (20 sources) Hypertensive disorder; Translations: [Essential (primary) hypertension] Onset: 5 02-12-2020 Chronic Comment on above: on medication, recom mend 5-10% weight reduction. Immunizations and screening for infectious disease (1 source) Encounter for immunization; Translations: [Need for prophylactic vaccination and inoculation against unspecified single disease] 08-23-2022 Episodic Menopausal disorders (12 sources) Menopausal syndrome; Translations: [Menopausal and female climacteric states] 02-12-2020 Chronic Menstrual disorders (8 sources) Irregular periods; Translations: [Irregular menstruation, unspecified] Onset: 7 02-15-2017 Chronic Osteoarthritis (12 sources) Unilateral primary osteoarthritis, right hip; Translations: [Osteoarthrosis, localized, primary, pelvic region and thigh] Onset: 3 08-17-2021 Chronic Osteoporosis (1 source) Age-related osteoporosis without current pathological fracture; Translations: [Age-related osteoporosis without current pathological fracture] Onset: 5 Chronic Other connective tissue disease (1 source) History of total hip arthroplasty; Translations: [Presence of left artificial hip joint] Onset: 6 07-12-2015 Chronic Other connective tissue disease (1 source) Pain in left toe(s); Translations: [Pain in limb] 08-23-2022 Episodic Other connective tissue disease (1 source) Other symptoms and signs involving the nervous system; Translations: [Other symptoms involving nervous and musculoskeletal systems] 08-23-2022 Episodic Other non-traumatic joint disorders (1 source) Pain in left shoulder; Translations: [Left shoulder pain] 04-09-2025 Episodic Other nutritional; endocrine; and metabolic disorders (20 sources) Obesity; Translations: [Other obesity] 08-25-2023 Chronic Comment on above: Nutrition plan: Hugo nced calorie restricted nutritional plan; Continue to track and focus on her protein intake; using Lark truong now; limit 8pm meal when getting home-doing better with this. Incorporate food into her in between time on M/T. Using probiotic.Medication plan: phentermine low dose 18.75mg; Cont Topamax back to 25mg bid; moods stable. Considering semiglutide. She will check her [employer] insurance coverage; able to utilize senior bioinformatics scientist coupon--in prediabetes. Consider if plateau. control- postmenopausal. Behavior intervention: recommend daily food intake track with electronic methods; sit down to eat; portion control; limit snacking. Timing of meals. Stress management. Exercise plan: increase daily steps (average 7-8,000); add NEAT activity; get back into gym with walking and weights after illness.Walking on her off days to increase her steps and move body. Using weighted vest when walking on treadmill. Advise to utilize exercise however to really focus on her nutrition and behaviors over next 4 weeks. Nutrition plan: Hugo nced calorie restricted nutritional plan; Continue to track and focus on her protein intake; using Lark truong now; limit 8pm meal when getting home-doing better with this. Incorporate food into her in between time on M/T. Using probiotic.Medication plan: phentermine low dose 18.75mg; Cont. Topamax back to 25mg bid; moods stable. Considering semiglutide. She will check her [employer] insurance coverage; able to utilize senior bioinformatics scientist coupon--in prediabetes. Consider if plateau. control- postmenopausal. Behavior intervention: recommend daily food intake track with electronic methods; sit down to eat; portion control; limit snacking. Timing of meals. Stress management. Exercise plan: increase daily steps (average 7-8,000); add NEAT activity; get back into gym with walking and weights Doing well with this.Walking on her off days to increase her steps and move body. Using weighted vest when walking on treadmill.Advise to utilize exercise however to really focus on her nutrition and behaviors over next 4 weeks. Nutrition plan: Hugo nced calorie restricted nutritional plan; Continue to track and focus on her protein intake; using Lark truong now. Using probiotic.Medication plan: phentermine low dose 18.75mg; Cont. Topamax back to 25mg bid; moods stable. Considering semiglutide if phent fail. She will check her [employer] insurance coverage; able to utilize senior bioinformatics scientist coupon--in prediabetes. Consider if plateau. control- postmenopausal. Behavior intervention: recommend daily food intake track with electronic methods; sit down to eat; portion control; limit snacking. Timing of meals. Stress management. Exercise plan: increase daily steps (average 7-8,000); add NEAT activity; get back into gym with walking and weights Doing well with this. Walking on her off days to increase her steps and move body. Using weighted vest when walking on treadmill; doing better with being active.Advise to utilize exercise however to really focus on her nutrition and behaviors over next 4 weeks. Nutrition plan: Hugo nced calorie restricted nutritional plan; Continue to track and focus on her protein intake; using Lark truong now. Using probiotic. Medication plan: continue phentermine low dose 18.75mg; Cont. Topamax 25mg bid; moods stable. Considering semiglutide if phent fail. She will check her [employer] insurance coverage; able to utilize senior bioinformatics scientist coupon--in prediabetes. Consider if plateau. control- postmenopausal. Behavior intervention: recommend daily food intake track with electronic methods; sit down to eat; portion control; limit snacking. Timing of meals. Stress management. Exercise plan: daily steps (average 7-8,000); add NEAT activity; get back into gym with walking and weights Doing well with this. Walking on her off days to increase her steps and move body. Using weighted vest when walking on treadmill; doing better with being active.Advise to utilize exercise however to really focus on her nutrition and behaviors over next 4 weeks as able given situation with family. Nutrition plan: Hugo huntered calorie restricted nutritional plan; Continue to track and focus on her protein intake; using Lark truong now. Using probiotic. Medication plan: continue phentermine low dose 18.75mg; Cont. Topamax 25mg bid; moods stable. Continue. Has refill at home. Will call when in need of refill. Considering semiglutide if phent fail. She will check her [employer] insurance coverage; able to utilize senior bioinformatics scientist coupon--in prediabetes. Consider if plateau. control- postmenopausal. Behavior intervention: recommend daily food intake track with electronic methods; sit down to eat; portion control; limit snacking. Timing of meals. Stress management. Exercise plan: daily steps (average 7-8,000); add NEAT activity; get back into gym with walking and weights Doing well with this. Walking on her off days to increase her steps and move body. Using weighted vest when walking on treadmill; doing better with being active--back to the gym. Nutrition plan: Hugo huntered calorie restricted nutritional plan; Continue to track and focus on her protein intake; using Lark truong now. Using probiotic. Get back on track this coming month.Medication plan: continue phentermine low dose 18.75mg; Cont. Topamax 25mg bid; moods stable. Continue. Has refill at home. Will call when in need of refill. Considering semiglutide if phent fail. She will check her [employer] insurance coverage; able to utilize senior bioinformatics scientist coupon--in prediabetes. Consider if plateau. control- postmenopausal. Behavior intervention: recommend daily food intake track with electronic methods; sit down to eat; portion control; limit snacking. Timing of meals. Stress management. Exercise plan: daily steps (average 7-8,000); add NEAT activity; get back into gym with walking and weights Doing well with this. Walking on her off days to increase her steps and move body. Using weighted vest when walking on treadmill; will work on doing better with being active--back to the gym. Other nutritional; endocrine; and metabolic disorders (20 sources) Body mass index 30+ - obesity; Translations: [Obesity, unspecified] 08-25-2023 Chronic Comment on above: - 238 09/12; goal of 190. Current weight is 223lbs; 220 today. Progressing slowly. Recent illness.Initial goal- 12 lb/5% weight reduction within 3 months of nutritional and medication intervention recommendations. Currently at 7% total since the start of medicationsinitial obesity assessment lab panel reviewed; has labs coming up in 2 weeks with PCP. Follow with these. - 238 09/12; goal of 190. Current weight is 223lbs; 21. Progressing slowly. Recent illness.Initial goal- 12 lb/5% weight reduction within 3 months of nutritional and medication intervention recommendations. Currently at 8% total since the start of medications.initial obesity assessment lab panel reviewed; has labs coming up in 2 weeks with PCP. Follow with these. - 238 09/12; goal of 190. Initial goal- 12 lb/5% weight reduction within 3 months of nutritional and medication intervention recommendations. Currently at 8% total since the start of medications.initial obesity assessment lab panel reviewed. - 238 09/12; goal of 190. Initial goal- 12 lb/5% weight reduction within 3 months of nutritional and medication intervention recommendations. initial obesity assessment lab panel reviewed. Other nutritional; endocrine; and metabolic disorders (2 sources) Obesity, unspecified; Translations: [Obesity, unspecified] Onset: 5 08-20-2023 Chronic Other nutritional; endocrine; and metabolic disorders (2 sources) Other obesity; Translations: [Obesity, unspecified] Onset: 4 08-20-2023 Chronic Other nutritional; endocrine; and metabolic disorders (1 source) Body mass index 25-29 - overweight; Translations: [Overweight] 04-09-2025 Episodic Other screening for suspected conditions (not mental disorders or infectious disease) (17 sources) Patient encounter status; Translations: [Encounter for screening for malignant neoplasm of colon] Onset: 5 11-28-2022 Episodic Other upper respiratory disease (10 sources) Seasonal allergy; Translations: [Other seasonal allergic rhinitis] 08-23-2022 Chronic Residual codes; unclassified (1 source) Family history of osteoporosis; Translations: [Family history of osteoporosis] 04-09-2025 Episodic Residual codes; unclassified (1 source) Family history of osteoporosis; Translations: [Family history of osteoporosis] Onset: Episodic Past or Other Problems Problem Classification Problem Date Documented Date Episodic/Chronic Administrative/social admission (16 sources) Persons encountering health services in other specified circumstances; Translations: [Other reasons for seeking consultation] Onset: 10-07-2024 08-23-2022 Episodic Comment on above: Pt's mother passed a way 02/2025. Pt was primary caregiver and reports having a difficult time. Pt has correspondence w/ a local counselor. Scored a 9 on phq and a 5 on SATHISH Other connective tissue disease (1 source) Calcific tendinitis of left achilles tendon; Translations: [Calcific tendinitis, other site] Onset: 04-12-2020 04-12-2020 Episodic Other connective tissue disease (1 source) Trochanteric bursitis; Translations: [Trochanteric bursitis, left hip] Onset: 08-04-2015 08-04-2015 Episodic Other connective tissue disease (1 source) Iliopsoas bursitis; Translations: [Other bursitis of hip, unspecified hip] Onset: 07-09-2015 07-12-2015 Episodic Screening and history of mental health and substance abuse codes (1 source) Encounter for screening for depression; Translations: [Encounter for screening for depression] Onset: 10-07-2024 Episodic Unclassified (7 sources) Screening mammography ; Translations: [Encounter for screening mammogram for malignant neoplasm of breast] Onset: 02-15-2017 Resolved: 03-01-2017 03-01-2017 Unclassified (7 sources) Gynecologic examination ; Translations: [Encounter for gynecological examination (general) (routine) with abnormal findings] Onset: 02-15-2017 Resolved: 03-01-2017 03-01-2017 Unclassified (1 source) Problem Unclassified (11 sources) uterine ablation 01-07-2022 Unclassified (11 sources) uterine fibroid removal 01-07-2022 Results Test Name Value Interpretation Reference Range Facility Stator Tester Office Visit Reporton 04-16-2025 Stator Tester Office Visit Report [facility] [address], [address] [place] [address] OFFICE VISIT Date of Service: 04/16/25 MR#: [id number] Acct: [id number] Name: KELL BURTON Rep #: [id number] : 1970 Provider: TRAVIS Glaloway Age/Sex: 54/F Location: [place] Status: Signed Intake Vital Signs 03/18/25 08:36 04/16/25 07:42 Height 5 ft 11 in 5 ft 11 in Weight: 209 lb 3 oz 213 lb 6 oz BMI 29.1 29.7 BP 125/85 H 133/84 H Pulse 89 82 Intake Visit Reasons: 4wk FU Signal Apprentice Required: No Is patient in pain?: No Allergies tree and shrub pollen Allergy (Mild, Verified 04/16/25 08:26) SINUS CONGESTION Medications ???Medication ???Instructions ???Recorded ???Confirmed ???Type topiramate 25 mg tablet 25 mg PO BID 30 days #60 tabs 09/1004/16/25 Rx hydrochlorothiazide 25 mg tablet 25 mg PO DAILY #90 TABLETS 5 04/16/25 Rx potassium chloride 10 mEq 20 meq (2 x 10 mEq) PO DAILY #180 04/08/25 04/16/25 Rx capsule,extended release caps lactobacillus combination no.4 3 3,000 mmu cells PO QDAY 04/09/25 1 06/16/24 History billion cell capsule (Probiotic) phentermine 37.5 mg tablet 37.5 mg PO QDAY #30 tabs 04/16/25 04/16/25 Rx (Adipex-P) Last Menstrual Period: 01/22/20 Zika: Zika virus screening: Negative : No Have you fallen in the past year?: No PFSH PFSH Medical History Obesity with body mass index (BMI) of 30.0 to 39.9 Measles Wears glasses Alcohol use Non-smoker Seasonal allergies Osteoarthritis Surgical History uterine ablation uterine fibroid removal History of release of tendon History of hip replacement Family History Father Pancreatic cancer Mother , 02/2025 Hypertension Arthritis Multiple myeloma Crohn disease Osteoporosis Thyroid disorder Grandmother Breast cancer Brother Hypertension Grandmother COPD (chronic obstructive pulmonary disease) Social History adopted: No household members: spouse number of children: 3 current occupational status: employed current occupation: teacher - biology high school history of recent travel: No sexually active: Yes Smoking Status: Never smoker Electronic Cigarette Use: not used alcohol intake: current alcohol intake frequency: holidays/special occasions only substance use type: does not use what type of physical activity do you participate in: aerobics and weight training frequency: 3-4 times per week seatbelt use: always do you feel safe at home: Yes additional social history: - [place] History 3 Elective abortions Hx Para 3 Spontaneous abortions Hx # Term Pregnancies Ectopic pregnancies Hx # Pregnancies Multiple births # of living children 3 Past Pregnancies Del. Date Name GA/Weeks Outcome Route Bth Weight Infant Gen Labor Lgth Anesthesia Del Locatn Provider FOB Unknown Robert 1996 Unknown Aamir 1999 Unknown Bailey 2001 HPI 4wk FU Details: KELL BURTON is a 54 year old Female presenting for a weight management follow up; she reports she has been doing well overall. Still coping through recent mothers loss. She is seeing counseling. Going to the gym twice a week and focusing on nutrition goals. Continues with medications. Taking compliantly with no side effects noted. Female Reproductive History Last Menstrual Period: 01/22/20 ROS Const Reports as per HPI, Denies difficulty sleeping, Denies excessive sweating, Denies fatigue (new onset severe) and Denies fever(s) Eyes Denies change in vision and Denies diplopia ENT Denies dizziness Card Denies chest pain, Denies dyspnea, Denies dyspnea on exertion, Denies palpitations and Denies rapid heart rate Resp Denies dyspnea and Denies dyspnea on exertion GI Reports as per HPI, Denies abdominal pain and Denies constipation Musc Denies numbness Neuro No confusion, No dizziness, No memory loss and No numbness Psych Reports as per HPI, Denies confusion, Denies depression, Denies memory loss, Denies mood swings and Denies suicidal ideation Endo Denies excessive sweating, Denies fatigue (new onset severe), Denies palpitations and Reports other (denies symptoms of hypoglycemia) Exam Const General: cooperative, healthy appearing, comfortable and no acute distress Orientation: alert HENMT Head: normal to inspection and normocephalic Eyes General: appearance normal, both eyes and all related structures Neck Neck: normal visual inspection, no lymphadenopathy and trachea midline Resp Effort Inspection: normal respiratory effort (more content not included)... Normal [facility] Laboratory - Hematology and Cell countsOrdered By: Princess Souza on 04-09-2025 HbA1c (Bld) [Mass fraction] 5.3 % 4.2-6.3 [facility] Internal Medicine Office Vis iton 04-08-2025 Internal Medicine Office Visit [facility] Internal Medicine [address] [place] [address] [place] [address] OFFICE VISIT Date of Service: 04/09/25 MR#: [id number] Acct: [id number] Name: KELL BURTON Rep #: [id number] : 1970 Provider: Dr. Princess graham MD Age/Sex: 54/F Location: [facility] [place] Status: Signed Intake Vital Signs 10/07/24 07:37 03/18/25 08:36 04/09/25 07:40 Height 5 ft 11 in 5 ft 11 in 5 ft 11 in Weight: 211 lb BMI 29.4 BP 128/84 H Blood Pressure Location Lt brachial Position Sitting Respiration 14 Pulse 86 Pulse Source Monitor Temp 98.1 F Temp Source Temporal Pulse Oximetry (%) 98 Oxygen Delivery Method room air Intake Visit Reasons: 6 m fu Chief Complaint: fu Signal Apprentice Required: No Is patient in pain?: No Allergies tree and shrub pollen Allergy (Mild, Verified 04/09/25 07:25) SINUS CONGESTION Medications ???Medication ???Instructions ???Recorded ???Confirmed ???Type topiramate 25 mg tablet 25 mg PO BID 30 days #60 tabs /03/0504/09/25 Rx hydrochlorothiazide 25 mg tablet 25 mg PO DAILY #90 TABLETS 5 04/09/25 Rx phentermine 37.5 mg tablet 18.75 mg (1/2 x 37.5 mg) PO QDAY 1 04/09/25 Rx (Adipex-P) #16 tabs potassium chloride 10 mEq 20 meq (2 x 10 mEq) PO DAILY #180 04/08/25 04/09/25 Rx capsule,extended release caps lactobacillus combination no.4 3 3,000 mmu cells PO QDAY 04/09/25 1 History billion cell capsule (Probiotic) Nurse's Note: Pt states that her mom in February and she was primary caregiver for her. She states she is doing not so great and is currently seeing kassy allen for counseling. Pt states she will not be shocked if her a1c is elevated due to stress eating. flu shot and first shingrix recieved this year in February by [facility] pharmacy [facility] Medical History Measles Wears glasses Alcohol use Non-smoker Seasonal allergies Osteoarthritis Surgical History uterine ablation uterine fibroid removal History of release of tendon History of hip replacement Family History (Updated 04/09/25 @ 07:34 by Bree Looney MA) Father Pancreatic cancer Mother , 02/2025 Hypertension Arthritis Multiple myeloma Crohn disease Osteoporosis Thyroid disorder Grandmother Breast cancer Brother Hypertension Grandmother COPD (chronic obstructive pulmonary disease) Social History adopted: No household members: spouse number of children: 3 current occupational status: employed current occupation: teacher - [employer] history of recent travel: No sexually active: Yes Smoking Status: Never smoker Electronic Cigarette Use: not used alcohol intake: current alcohol intake frequency: holidays/special occasions only substance use type: does not use what type of physical activity do you participate in: aerobics and weight training frequency: 3-4 times per week seatbelt use: always do you feel safe at home: Yes additional social history: - [place] Questionnaire PQH-9 BMS Over the last 2 weeks, how often have you been bothered by any of the following problems? 1. Little interest or pleasure in doing things: several days 2. Feeling down, depressed, or hopeless: several days 3. Trouble falling or staying asleep, or sleeping too much: more than half the days 4. Feeling tired or having little energy: more than half the days 5. Poor appetite or overeating: more than half the days 6. Feeling bad about yourself - or that you are a failure or have let yourself and your family down: not at all 7. Trouble concentrating on things, such as reading the newspaper or watching television: several days 8. Moving or speaking so slowly that other people could have noticed? - Or the opposite - being so fidgety or restless that you have been moving around a lot more than usual: not at all 9. Thoughts that you would be better off or of hurting yourself in some way: not at all Total score: 9 If you checked off any problems, how difficult have these problems made it for you to do your work, take care of things at home, or get along with other people?: somewhat difficult Source: Developed by Drs. Michael Salazar, Rimma Ramachandran, Kuldeep Pruitt and colleagues, with an educational hoa from [employer]. SATHISH-7 BMS SATHISH-7 Feeling nervous, anxious, or on edge: 1 = Several days Not being able to stop or control worryin = Not at all Worrying too much about different things: 1 = Several days Trouble relaxin = Several days Being so restless that it is hard to sit still: 0 = Not at all Becoming easily (more content not included)... Normal [facility] Breast imaging reportOrdered By: Bobby Jerome on 03-18-2025 Study report [facility] Imaging Services [address] [place] [address] SCRN MAMM (CAD)W/MIREYA BILAT MR#: [id number] Acct: [id number] Name: KELL BURTON NAVDEEP Rep #: [id number] : 1970 F 54 From: Hector Jerome MD PCP: Dr. Princess Souza MD Status: REG CLI Study:SCRN MAMM (CAD)W/MIREYA BILAT Date of Exa m: 03/18/25 Exam# [id number] Ordering Dr: Princess Souza MD EXAM: SCRN MAMM (CAD)W/MIREYA BILAT DATE: 03/18/2025 CLINICAL HISTORY: F, Age 54 y/o , SCREENING Grandmother with breast cancer. TECHNIQUE: Procedure Code: BISMWCADBTOM Modality: MG Procedure: SCRN MAMM (CAD)W/MIREYA BILAT COMPARISON: Prior exam(s) dated February 28, 2024.. FINDINGS: TISSUE DENSITY: There are scattered areas of fibroglandular density. Bilateral Breast Mammographic Findings: No significant masses, calcifications or other abnormalities are identified. No suspicious masses, areas of developing architectural distortion, or suspicious calcifications. There has been no significant interval change. BI/SCRN MAMM (CAD)W/MIREYA BILAT IMPRESSION: Stable bilateral screening mammogram. OVERALL FINAL ASSESSMENT BI-RADS 1: NEGATIVE. RECOMMENDATION: Routine annual follow-up in 1 Year Additional Recommendation none A letter with findings and recommendations will be mailed to the patient. Reading Location: [id number] CC: Dr. Princess Souza MD ~ Bobbin Painter: Signed [facility] Stator Tester Office Visit Reporton 03-18-2025 Stator Tester Office Visit Report [facility]'s [address], [address] [place] [address] OFFICE VISIT Date of Service: 03/18/25 MR#: [id number] Acct: [id number] Name: KELL BURTON NAVDEEP Rep #: [id number] : 1970 Provider: TRAVIS Galloway Age/Sex: 54/F Location: [place] Status: Signed Intake Vital Signs 02/12/25 14:41 03/18/25 08:36 Height 5 ft 11 in 5 ft 11 in Weight: 211 lb 4 oz 209 lb 3 oz BMI 29.5 29.1 BP 136/84 H 125/85 H Pulse 94 89 Intake Visit Reasons: 5wk FU Signal Apprentice Required: No Is patient in pain?: No Allergies tree and shrub pollen Allergy (Mild, Verified 03/18/25 08:38) SINUS CONGESTION Medications ???Medication ???Instructions ???Recorded ???Confirmed ???Type topiramate 25 mg tablet 25 mg PO BID 30 days #60 tabs 04/2 03/0503/18/25 Rx potassium chloride 10 mEq 20 meq (2 x 10 mEq) PO DAILY #180 01/05/25 03/18/25 Rx capsule,extended release caps hydrochlorothiazide 25 mg tablet 25 mg PO DAILY #90 TABLETS 5 03/18/25 Rx phentermine 37.5 mg tablet 18.75 mg (1/2 x 37.5 mg) PO QDAY 1 03/18/25 Rx (Adipex-P) #16 tabs Last Menstrual Period: 01/22/20 Zika: Zika virus screening: Negative : No Have you fallen in the past year?: No PFSH PFSH Medical History Measles Wears glasses Alcohol use Non-smoker Seasonal allergies Osteoarthritis Surgical History uterine ablation uterine fibroid removal History of release of tendon History of hip replacement Family History Father Pancreatic cancer Mother Hypertension Arthritis Multiple myeloma Crohn disease Osteoporosis Thyroid disorder Grandmother Breast cancer Brother Hypertension Grandmother COPD (chronic obstructive pulmonary disease) Social History adopted: No household members: spouse number of children: 3 current occupational status: employed current occupation: teacher - [employer] history of recent travel: No sexually active: Yes Smoking Status: Never smoker Electronic Cigarette Use: not used alcohol intake: current alcohol intake frequency: holidays/special occasions only substance use type: does not use what type of physical activity do you participate in: aerobics and weight training frequency: 3-4 times per week seatbelt use: always do you feel safe at home: Yes additional social history: - [place] History 3 Elective abortions Hx Para 3 Spontaneous abortions Hx # Term Pregnancies Ectopic pregnancies Hx # Pregnancies Multiple births # of living children 3 Past Pregnancies Del. Date Name GA/Weeks Outcome Route Bth Weight Gen Labor Lgth Anesthesia Del Locatn Provider FOB Unknown Robert 1996 Unknown Aamir 1999 Unknown Bailey 2001 HPI 5wk FU Details: KELL BURTON is a 54 year old Female presenting for a weight management follow up; she reports she has had a hard time stay on with her nutrition and physical exercise. She has not been able to get to the gym. Her nutrition has not been at its best. Her mother recently this month and has been grieving through this. She does continue with taking her medications compliantly; reports no side effects. Feels her moods are due to losing her mother. Female Reproductive History Last Menstrual Period: 01/22/20 ROS Const Reports as per HPI, Denies difficulty sleeping, Denies excessive sweating, Denies fatigue (new onset severe) and Denies fever(s) Eyes Denies change in vision and Denies diplopia ENT Denies dizziness Card Denies chest pain, Denies dyspnea, Denies dyspnea on exertion, Denies palpitations and Denies rapid heart rate Resp Denies dyspnea and Denies dyspnea on exertion GI Reports as per HPI, Denies abdominal pain and Denies constipation Musc Denies numbness Neuro No confusion, No dizziness, No memory loss and No numbness Psych Reports as per HPI, Denies confusion, Denies depression, Denies memory loss, Denies mood swings and Denies suicidal ideation Endo Denies excessive sweating, Denies fatigue (new onset severe), Denies palpitations and Reports other (denies symptoms of hypoglycemia) Exam Const General: cooperative, healthy appearing, comfortable and no acute distress Orientation: alert HENMT Head: normal to inspection and normocephalic Eyes General: appearance normal, both eyes and all related structures Neck Neck: normal visual inspection, no lymphadenopathy and trachea midline Resp Effort Inspection: normal respiratory effort Auscultation: clear to auscultation bilaterally Cardio (more content not included)... Normal [facility] SCRN MAMM (CAD)W/MIREYA BILATo n 03-18-2025 SCRN MAMM (CAD)W/MIREYA BILAT [facility] Imaging Services [address] [place] [address] SCRN MAMM (CAD)W/MIREYA BILAT MR#: [id number] Acct: [id number] Name: KELL BURTON NAVDEEP Rep #: [id number] : 1970 F 54 From: Bobby babb MD PCP: Dr. Princess Souza MD Status: REG [facility] Study: SCRN MAMM (CAD)W/MIREYA BILAT Date of Exam: 02/02 Exam# [id number] Ordering Dr: Princess Souza MD EXAM: SCRN MAMM (CAD)W/MIREYA BILAT DATE: 03/18/2025 CLINICAL HISTORY: F, Age 54 y/o , SCREENING Grandmother with breast cancer. TECHNIQUE: Procedure Code: BISMWCADBTOM Modality: MG Procedure: SCRN MAMM (CAD)W/MIREYA BILAT COMPARISON: Prior exam(s) dated February 28, 2024.. FINDINGS: TISSUE DENSITY: There are scattered areas of fibroglandular density. Bilateral Breast Mammographic Findings: No significant masses, calcifications or other abnormalities are identified. No suspicious masses, areas of developing architectural distortion, or suspicious calcifications. There has been no significant interval change. BI/SCRN MAMM (CAD)W/MIREYA BILAT IMPRESSION: Stable bilateral screening mammogram. OVERALL FINAL ASSESSMENT BI-RADS 1: NEGATIVE. RECOMMENDATION: Routine annual follow-up in 1 Year Additional Recommendation none A letter with findings and recommendations will be mailed to the patient. Reading Location: [id number] CC: Dr. Princess Souza MD Bobbin Painter: Signed Normal [facility] Stator Tester Office Visit Reporton 02-12-2025 Stator Tester Office Visit Report [facility] [address], [address] [place] [address] OFFICE VISIT Date of Service: 02/12/25 MR#: [id number] Acct: [id number] Name: KELL BURTON NAVDEEP Rep #: [id number] : 1970 Provider: TRAVIS Galloway Age/Sex: 54/F Location: [place] Status: Signed Intake Vital Signs 01/15/25 07:37 02/12/25 14:41 Height 5 ft 11 in 5 ft 11 in Weight: 208 lb 4 oz 211 lb 4 oz BMI 29.0 29.5 BP 138/84 H 136/84 H Pulse 81 94 Intake Visit Reasons: 4 WK F/U Signal Apprentice Required: No Is patient in pain?: No Allergies tree and shrub pollen Allergy (Mild, Verified 02/12/25 14:43) SINUS CONGESTION Medications ???Medication ???Instructions ???Recorded ???Confirmed ???Type hydrochlorothiazide 25 mg tablet 25 mg PO DAILY #90 TABLETS 5 02/12/25 Rx topiramate 25 mg tablet 25 mg PO BID 30 days #60 tabs 09/1002/12/25 Rx potassium chloride 10 mEq 20 meq (2 x 10 mEq) PO DAILY #180 01/05/25 02/12/25 Rx capsule,extended release caps phentermine 37.5 mg tablet 18.75 mg (1/2 x 37.5 mg) PO QDAY 0 01/15/25 02/12/25 Rx (Adipex-P) #16 tabs Last Menstrual Period: 01/22/20 Zika: Zika virus screening: Negative : No Have you fallen in the past year?: No PFSH PFSH Medical History Measles Wears glasses Alcohol use Non-smoker Seasonal allergies Osteoarthritis Surgical History uterine ablation uterine fibroid removal History of release of tendon History of hip replacement Family History Father Pancreatic cancer Mother Hypertension Arthritis Multiple myeloma Crohn disease Osteoporosis Thyroid disorder Grandmother Breast cancer Brother Hypertension Grandmother COPD (chronic obstructive pulmonary disease) Social History adopted: No household members: spouse number of children: 3 current occupational status: employed current occupation: teacher - [employer] history of recent travel: No sexually active: Yes Smoking Status: Never smoker Electronic Cigarette Use: not used alcohol intake: current alcohol intake frequency: holidays/special occasions only substance use type: does not use what type of physical activity do you participate in: aerobics and weight training frequency: 3-4 times per week seatbelt use: always do you feel safe at home: Yes additional social history: - [place] History 3 Elective abortions Hx Para 3 Spontaneous abortions Hx # Term Pregnancies Ectopic pregnancies Hx # Pregnancies Multiple births # of living children 3 Past Pregnancies Del. Date Name GA/Weeks Outcome Route Bth Weight Infant Gen Labor Lgth Anesthesia Del Locatn Provider FOB Unknown Robert 1996 Unknown Aamir 1999 Unknown Bailey 2001 HPI 4 WK F/U Details: KELL BURTON is a 54 year old Female presenting for a weight management follow up. Reports she is doing well; school has started back up and she is getting back into the swing of things there. She was also able to move her mother to the nursing facility and that stress has lifted. She has been able to get back into working out at the gym. Still working on following her nutrition goals however doing better with this. Female Reproductive History Last Menstrual Period: 01/22/20 ROS Const Reports as per HPI, Denies difficulty sleeping, Denies excessive sweating, Denies fatigue (new onset severe) and Denies fever(s) Eyes Denies change in vision and Denies diplopia ENT Denies dizziness Card Denies chest pain, Denies dyspnea, Denies dyspnea on exertion, Denies palpitations and Denies rapid heart rate Resp Denies dyspnea and Denies dyspnea on exertion GI Reports as per HPI, Denies abdominal pain and Denies constipation Musc Denies numbness Neuro No confusion, No dizziness, No memory loss and No numbness Psych Reports as per HPI, Denies confusion, Denies depression, Denies memory loss, Denies mood swings and Denies suicidal ideation Endo Denies excessive sweating, Denies fatigue (new onset severe), Denies palpitations and Reports other (denies symptoms of hypoglycemia) Exam Const General: cooperative, healthy appearing, comfortable and no acute distress Orientation: alert HENIL Head: normal to inspection and normocephalic Eyes General: appearance normal, both eyes and all related structures Neck Neck: normal visual inspection, no lymphadenopathy and trachea midline Resp Effort Inspection: normal respiratory effort Auscultation: clear to auscultation bilaterally Cardio Rate: regular rate Rhythm: reg (more content not included)... Normal [facility] Stator Tester Office Visit Reporton 01-15-2025 Stator Tester Office Visit Report [facility]'s [address], [address] [place] [address] OFFICE VISIT Date of Service: 01/15/25 MR#: [id number] Acct: [id number] Name: KELL BURTON NAVDEEP Rep #: [id number] : 1970 Provider: TRAVIS Galloway Age/Sex: 54/F Location: [place] Status: Signed Intake Vital Signs 11/26/24 11:00 11/26/24 11:35 01/15/25 07:37 Height 5 ft 11 in 5 ft 11 in 5 ft 11 in Weight: 217 lb 4 oz 208 lb 4 oz BMI 30.2 29.0 BP 138/84 H 138/84 H Pulse 82 81 Intake Visit Reasons: 7 wk WM F/U Signal Apprentice Required: No Is patient in pain?: No Allergies tree and shrub pollen Allergy (Mild, Verified 01/15/25 09:33) SINUS CONGESTION Medications ???Medication ???Instructions ???Recorded ???Confirmed ???Type hydrochlorothiazide 25 mg tablet 25 mg PO DAILY #90 TABLETS 5 01/15/25 Rx topiramate 25 mg tablet 25 mg PO BID 30 days #60 tabs 09/1001/15/25 Rx potassium chloride 10 mEq 20 meq (2 x 10 mEq) PO DAILY #180 01/05/25 01/15/25 Rx capsule,extended release caps phentermine 37.5 mg tablet 18.75 mg (1/2 x 37.5 mg) PO QDAY 0 01/15/25 01/15/25 Rx (Adipex-P) #16 tabs Last Menstrual Period: 01/22/20 Zika: Zika virus screening: Negative : No Have you fallen in the past year?: No PFSH PFSH Medical History Measles Wears glasses Alcohol use Non-smoker Seasonal allergies Osteoarthritis Surgical History uterine ablation uterine fibroid removal History of release of tendon History of hip replacement Family History Father Pancreatic cancer Mother Hypertension Arthritis Multiple myeloma Crohn disease Osteoporosis Thyroid disorder Grandmother Breast cancer Brother Hypertension Grandmother COPD (chronic obstructive pulmonary disease) Social History adopted: No household members: spouse number of children: 3 current occupational status: employed current occupation: teacher - [employer] history of recent travel: No sexually active: Yes Smoking Status: Never smoker Electronic Cigarette Use: not used alcohol intake: current alcohol intake frequency: holidays/special occasions only substance use type: does not use what type of physical activity do you participate in: aerobics and weight training frequency: 3-4 times per week seatbelt use: always do you feel safe at home: Yes additional social history: - [place] History 3 Elective abortions Hx Para 3 Spontaneous abortions Hx # Term Pregnancies Ectopic pregnancies Hx # Pregnancies Multiple births # of living children 3 Past Pregnancies Del. Date Name GA/Weeks Outcome Route Bth Weight Gen Labor Lgth Anesthesia Del Locatn Provider FOB Unknown Robert 1996 Unknown Aamir 1999 Unknown Bailey 2001 HPI 7 wk WM F/U Details: KELL BURTON is a 54 year old Female presenting for a weight management follow up. She reports she has had a difficult summer. Her mother was recently placed on hospice and Kell is the sole provider for her at this time. This has impacted her ability to focus on her nutrition and exercise. She has lost weight however has not been able to go to the gym and wonders if this has anything to do with decreased muscle mass. Overall her emotions are up and down. She is under stress. Feels she is however able to cope at this time. Female Reproductive History Last Menstrual Period: 01/22/20 ROS Const Reports as per HPI, Denies difficulty sleeping, Denies excessive sweating, Denies fatigue (new onset severe) and Denies fever(s) Eyes Denies change in vision and Denies diplopia ENT Denies dizziness Card Denies chest pain, Denies dyspnea, Denies dyspnea on exertion, Denies palpitations and Denies rapid heart rate Resp Denies dyspnea and Denies dyspnea on exertion GI Reports as per HPI, Denies abdominal pain and Denies constipation Musc Denies numbness Neuro No confusion, No dizziness, No memory loss and No numbness Psych Reports as per HPI, Denies confusion, Denies depression, Denies memory loss, Denies mood swings and Denies suicidal ideation Endo Denies excessive sweating, Denies fatigue (new onset severe), Denies palpitations and Reports other (denies symptoms of hypoglycemia) Exam Const General: cooperative, healthy appearing, comfortable and no acute distress Orientation: alert HENMT Head: normal to inspection and normocephalic Eyes General: appearance normal, both eyes and all related structures Neck Neck: normal visual inspection, no lymphadenopathy and trach (more content not included)... Normal [facility] Stator Tester Office Visit Reporton 11-26-2024 Stator Tester Office Visit Report [facility]'s [address], [address] [place] [address] OFFICE VISIT Date of Service: 11/26/24 MR#: [id number] Acct: [id number] Name: KELL BURTON Rep #: [id number] : 1970 Provider: TRAVIS Galloway Age/Sex: 54/F Location: [place] Status: Signed Intake Vital Signs 10/07/24 07:37 11/26/24 11:00 Height 5 ft 11 in 5 ft 11 in Weight: 216 lb 2 oz 217 lb 4 oz BMI 30.1 30.2 BP 138/80 H 138/84 H Blood Pressure Location Lt brachial Position Sitting Respiration 16 Pulse 95 82 Pulse Source Monitor Temp 97.6 F L Pulse Oximetry (%) 98 Oxygen Delivery Method room air Intake Visit Reasons: F/U Signal Apprentice Required: No Is patient in pain?: No Allergies tree and shrub pollen Allergy (Mild, Verified 11/26/24 10:58) SINUS CONGESTION Medications ???Medication ???Instructions ???Recorded ???Confirmed ???Type hydrochlorothiazide 25 mg tablet 25 mg PO DAILY #90 TABLETS 5 11/26/24 Rx topiramate 25 mg tablet 25 mg PO BID 30 days #60 tabs 09/1011/26/24 Rx potassium chloride 10 mEq 20 meq (2 x 10 mEq) PO DAILY #180 10/15/24 11/26/24 Rx capsule,extended release caps phentermine 37.5 mg tablet 18.75 mg (1/2 x 37.5 mg) PO QDAY 0 11/26/24 11/26/24 Rx (Adipex-P) #16 tabs Last Menstrual Period: 01/22/20 PFSH PFSH Medical History Measles Wears glasses Alcohol use Non-smoker Seasonal allergies Osteoarthritis Surgical History uterine ablation uterine fibroid removal History of release of tendon History of hip replacement Family History Father Pancreatic cancer Mother Hypertension Arthritis Multiple myeloma Crohn disease Osteoporosis Thyroid disorder Grandmother Breast cancer Brother Hypertension Grandmother COPD (chronic obstructive pulmonary disease) Social History adopted: No household members: spouse number of children: 3 current occupational status: employed current occupation: teacher - [employer] history of recent travel: No sexually active: Yes Smoking Status: Never smoker Electronic Cigarette Use: not used alcohol intake: current alcohol intake frequency: holidays/special occasions only substance use type: does not use what type of physical activity do you participate in: aerobics and weight training frequency: 3-4 times per week seatbelt use: always do you feel safe at home: Yes additional social history: - [place] History 3 Elective abortions Hx Para 3 Spontaneous abortions Hx # Term Pregnancies Ectopic pregnancies Hx # Pregnancies Multiple births # of living children 3 Past Pregnancies Del. Date Name GA/Weeks Outcome Route Bth Weight Infant Gen Labor Lgth Anesthesia Del Locatn Provider FOB Unknown Robert 1996 Unknown Aamir 1999 Unknown Bailey 2001 HPI F/U Details: KELL BURTON is a 54 year old Female presenting for a weight management follow up; she is doing well. Was recently on vacation to [place]. She reports she did not track or do any exercise on this trip. She has however been doing more things around the house and at the gym. Her scale at home had her down to 212 prior to vacation. Female Reproductive History Last Menstrual Period: 01/22/20 ROS Const Reports as per HPI, Denies difficulty sleeping, Denies excessive sweating, Denies fatigue (new onset severe) and Denies fever(s) Eyes Denies change in vision and Denies diplopia ENT Denies dizziness Card Denies chest pain, Denies dyspnea, Denies dyspnea on exertion, Denies palpitations and Denies rapid heart rate Resp Denies dyspnea and Denies dyspnea on exertion GI Reports as per HPI, Denies abdominal pain and Denies constipation Musc Denies numbness Neuro No confusion, No dizziness, No memory loss and No numbness Psych Denies confusion, Denies depression, Denies memory loss, Denies mood swings and Denies suicidal ideation Endo Denies excessive sweating, Denies fatigue (new onset severe), Denies palpitations and Reports other (denies symptoms of hypoglycemia) Assessment and Plan Assessment and Plan (1) Prediabetes: Status: Acute Plan: most recent HA1c stable and not rising. (2) HTN (hypertension): Status: Chronic Qualifiers: Hypertension type: essential hypertension Qualified Code(s): I10 - Essential (primary) hypertension Comment: on medication, recommend 5-10% weight reduction. Plan: stable today however recommend she is checking this at home. If greater than 140/90 to call office. (3) Other obesity: Status: Acute C (more content not included)... Normal [facility] Rubeola IgG Abon 10-09-2024 RUBEOLA Ab, IgG 116.0 AU/mL Normal Immune >16.4 [facility] Comment on above: Result Comment: Nega tive <13.5 Equivocal 13.5 - 16.4 Positive >16.4 Presence of antibodies to Rubeola is presumptive evidence of immunity except when acute infection is suspected. Performed at: [employer] [id number] Vehicle Sales Professional: Aaron Zhang PhD, Phone: [phone] Performed By: #### L [id number] #### [facility] Laboratory [facility] [place], [address] Laboratory - Hematology and Cell countsOrdered By: Princess Souza on 10-07-2024 HbA1c (Bld) [Mass fraction] 5.8 % 4.2-6.3 [facility] Serum measles virus IgG anti body assay by immunoassay (units/volume)Ordered By: Princess Souza on 10-07-2024 MeV IgG IA Qn (S) 116.0 AU/mL Immune >16.4 [facility] Comment on above: Negative <13.5 Equiv ocal 13.5 - 16.4 Positive >16.4Presence of antibodies to Rubeola is presumptive evidenceof immunity except when acute infection is suspected.Performed at: [employer] [id number] Director: Aaron Zhang PhD, Phone: [phone] Internal Medicine Office Vis iton 10-06-2024 Internal Medicine Office Visit [facility] [address] [place] [address] [place] [address] OFFICE VISIT Date of Service: 10/07/24 MR#: [id number] Acct: [id number] Name: KELL BURTON Rep #: [id number] : 1970 Provider: Dr. Princess graham MD Age/Sex: 54/F Location: [facility] [place] Status: Signed Intake Vital Signs 04/07/24 11:02 09/24/24 15:27 10/07/24 07:37 Height 5 ft 11 in 5 ft 11 in 5 ft 11 in Weight: 216 lb 2 oz BMI 30.1 BP 138/80 H Blood Pressure Location Lt brachial Position Sitting Respiration 16 Pulse 95 Pulse Source Monitor Temp 97.6 F L Temp Source Temporal Pulse Oximetry (%) 98 Oxygen Delivery Method room air Intake Visit Reasons: 6 M FU Chief Complaint: fu Signal Apprentice Required: No Accompanied by: Self Is patient in pain?: No Allergies tree and shrub pollen Allergy (Mild, Verified 10/07/24 07:31) SINUS CONGESTION Medications ???Medication ???Instructions ???Recorded ???Confirmed ???Type potassium chloride 10 mEq 20 meq (2 x 10 mEq) PO DAILY #180 07/08/24 10/07/24 Rx capsule,extended release caps topiramate 25 mg tablet 25 mg PO BID 30 days #60 tabs 03/0 11/0210/07/24 Rx hydrochlorothiazide 25 mg tablet 25 mg PO DAILY #90 TABLETS /24/2 5 10/07/24 Rx phentermine 37.5 mg tablet 18.75 mg (1/2 x 37.5 mg) PO QDAY 0 09/24/24 10/07/24 Rx (Adipex-P) #16 tabs Have you fallen in the past year?: No PFSH Medical History (Updated 10/07/24 @ 07:[address] Princess Souza MD) Measles Wears glasses Alcohol use Non-smoker Seasonal allergies Osteoarthritis Surgical History uterine ablation uterine fibroid removal History of release of tendon History of hip replacement Family History Father Pancreatic cancer Mother Hypertension Arthritis Multiple myeloma Crohn disease Osteoporosis Thyroid disorder Grandmother Breast cancer Brother Hypertension Grandmother COPD (chronic obstructive pulmonary disease) Social History (Updated 10/07/24 @ 07:[address] Princess Souza MD) adopted: No household members: spouse number of children: 3 current occupational status: employed current occupation: teacher - [employer] history of recent travel: No sexually active: Yes Smoking Status: Never smoker Electronic Cigarette Use: not used alcohol intake: current alcohol intake frequency: holidays/special occasions only substance use type: does not use what type of physical activity do you participate in: aerobics and weight training frequency: 3-4 times per week seatbelt use: always do you feel safe at home: Yes additional social history: - [place] Questionnaire PQH-9 BMS Over the last 2 weeks, how often have you been bothered by any of the following problems? 1. Little interest or pleasure in doing things: not at all 2. Feeling down, depressed, or hopeless: not at all 3. Trouble falling or staying asleep, or sleeping too much: not at all 4. Feeling tired or having little energy: not at all 5. Poor appetite or overeating: not at all 6. Feeling bad about yourself - or that you are a failure or have let yourself and your family down: not at all 7. Trouble concentrating on things, such as reading the newspaper or watching television: not at all 8. Moving or speaking so slowly that other people could have noticed? - Or the opposite - being so fidgety or restless that you have been moving around a lot more than usual: not at all 9. Thoughts that you would be better off or of hurting yourself in some way: not at all Total score: 0 If you checked off any problems, how difficult have these problems made it for you to do your work, take care of things at home, or get along with other people?: not difficult at all Source: Developed by Drs. Michael Salazar, Rimma Ramachandran, Kuldeep Pruitt and colleagues, with an educational hoa from [employer] HPI HPI Chief Complaint: fu Details: KELL BURTON, is a 54 F who presents to the office today for a follow up. She is up to date on her routine blood work and screening. She hasn't yet had her shingles vaccine, but still plans on doing so. She doesn't smoke and does not need any refills today. She reports she is eating healthy and is trying to stay active. She does still go to the gym regularly. She doesn't regularly check her blood pressure at home. She states when she does check it, it will be well controlled. She states when she is on break from work, it always seems to be better. She is taking it as prescribed without problems. She does try to monitor her salt intake. She reports she drinks 2 cups of coffee daily. She reports she hasn't had any further problems with her sleep. She continues to follow with obesity medicin (more content not included)... Normal [facility] Stator Tester Office Visit Reporton 09-24-2024 Stator Tester Office Visit Report [facility] [address], [address] [place] [address] OFFICE VISIT Date of Service: 09/24/24 MR#: [id number] Acct: [id number] Name: KELL BURTON NAVDEEP Rep #: [id number] : 1970 Provider: TRAVIS Galloway Age/Sex: 54/F Location: [facility] Status: Signed Intake Vital Signs 07/31/24 13:37 08/25/24 10:55 09/24/24 15:26 09/24/24 15:27 Height 5 ft 11 in 5 ft 11 in 5 ft 11 in 5 ft 11 in Weight: 221 lb 2 oz 220 lb 6 oz BMI 30.8 30.7 BP 126/80 H 139/85 H Blood Pressure Location Rt brachial Position Sitting Pulse 85 88 Pulse Source Monitor Intake Visit Reasons: 8 wk fu Signal Apprentice Required: No Is patient in pain?: No Allergies tree and shrub pollen Allergy (Mild, Verified 09/24/24 15:23) SINUS CONGESTION Medications ???Medication ???Instructions ???Recorded ???Confirmed ???Type potassium chloride 10 mEq 20 meq (2 x 10 mEq) PO DAILY #180 07/08/24 09/24/24 Rx capsule,extended release caps topiramate 25 mg tablet 25 mg PO BID 30 days #60 tabs 03/0 11/0209/24/24 Rx hydrochlorothiazide 25 mg tablet 25 mg PO DAILY #90 TABLETS 09/01/ 5 09/24/24 Rx phentermine 37.5 mg tablet 18.75 mg (1/2 x 37.5 mg) PO QDAY 0 09/24/24 09/24/24 Rx (Adipex-P) #16 tabs Last Menstrual Period: 01/22/20 PFSH PFSH Medical History Wears glasses Alcohol use Non-smoker Seasonal allergies Osteoarthritis Surgical History uterine ablation uterine fibroid removal History of release of tendon History of hip replacement Family History Father Pancreatic cancer Mother Hypertension Arthritis Multiple myeloma Crohn disease Osteoporosis Thyroid disorder Grandmother Breast cancer Brother Hypertension Grandmother COPD (chronic obstructive pulmonary disease) Social History adopted: No household members: spouse and children number of children: 3 current occupational status: employed current occupation: teacher - [employer] history of recent travel: No sexually active: Yes Smoking Status: Never smoker Electronic Cigarette Use: not used alcohol intake: current alcohol intake frequency: holidays/special occasions only substance use type: does not use what type of physical activity do you participate in: aerobics and weight training frequency: 3-4 times per week seatbelt use: always do you feel safe at home: Yes additional social history: - [place] History 3 Elective abortions Hx Para 3 Spontaneous abortions Hx # Term Pregnancies Ectopic pregnancies Hx # Pregnancies Multiple births # of living children 3 Past Pregnancies Del. Date Name GA/Weeks Outcome Route Bth Weight Infant Gen Labor Lgth Anesthesia Del Locatn Provider FOB Unknown Robert 1996 Unknown Aamir 1999 Unknown Bailey 2001 HPI 8 wk fu Details: KELL BURTON is a 54 year old Female presenting for a weight management follow up. Has recently had illness with upper respiratory infection and coughing. This has limited her exercise she has been able to do. She reports she is taking medication compliantly; does have constipation-managi ng at this time. Otherwise denies side effects. Female Reproductive History Last Menstrual Period: 01/22/20 ROS Const Reports as per HPI, Denies difficulty sleeping, Denies excessive sweating, Denies fatigue (new onset severe) and Denies fever(s) Eyes Denies change in vision and Denies diplopia ENT Denies dizziness Card Denies chest pain, Denies dyspnea, Denies dyspnea on exertion, Denies palpitations and Denies rapid heart rate Resp Denies dyspnea and Denies dyspnea on exertion GI Reports as per HPI, Denies abdominal pain and Denies constipation Musc Denies numbness Neuro No confusion, No dizziness, No memory loss and No numbness Psych Denies confusion, Denies depression, Denies memory loss, Denies mood swings and Denies suicidal ideation Endo Denies excessive sweating, Denies fatigue (new onset severe), Denies palpitations and Reports other (denies symptoms of hypoglycemia) Exam Const General: cooperative, healthy appearing, comfortable and no acute distress Orientation: alert HENMT Head: normal to inspection and normocephalic Eyes General: appearance normal, both eyes and all related structures Neck Neck: normal visual inspection, no lymphadenopathy and trachea midline Resp Effort Inspection: normal respiratory effort Auscultation: clear to auscultation bilaterally Cardio Rate: regular rate Rhythm: regular rhythm Musc Other: gross motor intact no deficits, (more content not included)... Normal [facility] Office Visit Reporton 2024 Office Visit Report [facility] [address] [place] [address] OFFICE VISIT Date of Service: 08/25/24 MR#: [id number] Acct: [id number] Patient: KELL BURTON Rep #: [id number] : 1970 Provider: Dr. Chrystal duran MD Age/Sex: 54/F Location: [facility] Status: Signed Intake Vital Signs 07/31/24 13:37 08/25/24 10:55 Height 5 ft 11 in 5 ft 11 in Weight: 221 lb 2 oz BMI 30.8 BP 126/80 H Blood Pressure Location Rt brachial Position Sitting Pulse 85 Pulse Source Monitor Intake Visit Reasons: 4 wk med check Chief Complaint: med check Signal Apprentice Required: No Is patient in pain?: No Allergies tree and shrub pollen Allergy (Mild, Verified 08/25/24 10:56) SINUS CONGESTION Medications ???Medication ???Instructions ???Recorded ???Confirmed ???Type hydrochlorothiazide 25 mg tablet 25 mg PO DAILY #90 TABLETS 4 08/25/24 Rx potassium chloride 10 mEq 20 meq (2 x 10 mEq) PO DAILY #180 07/08/24 08/25/24 Rx capsule,extended release caps topiramate 25 mg tablet 25 mg PO BID 30 days #60 tabs 11/0208/25/24 Rx phentermine 37.5 mg tablet 18.75 mg (1/2 x 37.5 mg) PO QDAY 0 08/25/24 Rx (Adipex-P) #16 tabs Patient : No Have you fallen in the past year?: No Nurse's Note: Needs phentermine refill this sunday patient seen for obesity related comorbidities/weigh t management medication follow up. WM questionnaire answers reviewed with patient, and any questions answered. support given to patient consistent with treatment plan. vitals taken and script renewed by provider if appropriate. all relevant findings reviewed with the provider, script renewed if appropriate, and any changes to current treatment as well as the follow up plan reviewed with patient. [place]ARRS reviewed and remains compliant to controlled medication rules and regulations at this time Questionnaires Weight Management Follow-Up What nutritional plan/diet are you following?: high protein/mediterania n How are you tracking your food intake?: [employer] On average, how many days a week are you recording your food intake?: 4 How many days a week are you staying within your recommended intake goals?: 4 What is your current weekly exercise?: strength training/cardio 2x/wk On a scale of 1-10, how difficult is it to follow your current weight management plan?: 8 What are you struggling most with right now in following your weight loss plan?: time to work out Are there any changes we need to make to your current plan right now?: None Side Effects: Yes Insomnia (Falling asleep, waking 3x) Are there any side effects interfering with quality of life enough you would want to stop medication?: No What's improved for you since losing weight and making your lifestyle change?: clothes fit better, feel better except sleep Is there anything else we can help you with on your weight loss journey today?: Refill Phentermine 08/27/24 2301 Date Chrystal Thakkar Signature: Date (if applicable) CC: Normal [facility] Stator Tester Office Visit Reporton 07-31-2024 Stator Tester Office Visit Report [facility], [address] [place] [address] OFFICE VISIT Date of Service: 07/31/24 MR#: [id number] Acct: [id number] Name: KELL BURTON Rep #: [id number] : 1970 Provider: TRAVIS Galloway Age/Sex: 54/F Location: [facility] Status: Signed Intake Vital Signs 06/26/24 15:13 07/31/24 13:33 07/31/24 13:37 Height 5 ft 11 in 5 ft 11 in 5 ft 11 in Weight: 223 lb 6 oz BMI 31.1 BP 131/81 H Pulse 80 Intake Visit Reasons: 5 wk med check Signal Apprentice Required: No Is patient in pain?: No Allergies tree and shrub pollen Allergy (Mild, Verified 07/31/24 13:33) SINUS CONGESTION Medications ???Medication ???Instructions ???Recorded ???Confirmed ???Type hydrochlorothiazide 25 mg tablet 25 mg PO DAILY #90 TABLETS 03/05/ 4 07/31/24 Rx topiramate 25 mg tablet 25 mg PO BID 30 days #60 tabs 05/1107/31/24 Rx potassium chloride 10 mEq 20 meq (2 x 10 mEq) PO DAILY #180 07/08/24 07/31/24 Rx capsule,extended release caps phentermine 37.5 mg tablet 18.75 mg (1/2 x 37.5 mg) PO QDAY 0 07/23/24 07/31/24 Rx (Adipex-P) #16 tabs Last Menstrual Period: 01/22/20 Have you fallen in the past year?: No PFSH PFSH Medical History Wears glasses Alcohol use Non-smoker Seasonal allergies Osteoarthritis Surgical History uterine ablation uterine fibroid removal History of release of tendon History of hip replacement Family History Father Pancreatic cancer Mother Hypertension Arthritis Multiple myeloma Crohn disease Osteoporosis Thyroid disorder Grandmother Breast cancer Brother Hypertension Grandmother COPD (chronic obstructive pulmonary disease) Social History adopted: No household members: spouse and children number of children: 3 current occupational status: employed current occupation: teacher - [employer] history of recent travel: No sexually active: Yes Smoking Status: Never smoker Electronic Cigarette Use: not used alcohol intake: current alcohol intake frequency: holidays/special occasions only substance use type: does not use what type of physical activity do you participate in: aerobics and weight training frequency: 3-4 times per week seatbelt use: always do you feel safe at home: Yes additional social history: - [place] History 3 Elective abortions Hx Para 3 Spontaneous abortions Hx # Term Pregnancies Ectopic pregnancies Hx # Pregnancies Multiple births # of living children 3 Past Pregnancies Del. Date Name GA/Weeks Outcome Route Bth Weight Gen Labor Lgth Anesthesia Del Locatn Provider FOB Unknown Robert 1996 Unknown Aamir 1999 Unknown Bailey 2001 HPI 5 wk med check Details: KELL BURTON is a 54 year old Female presenting for a weight management follow up--she reports she has had a rough couple weeks with work schedule; family issues/needs. This has made it difficult to stay on track with her diet and exercise. She has continued taking her half tab phen. and topiramate compliantly. She reports she is doing well on these with no side effects noted. Female Reproductive History Last Menstrual Period: 01/22/20 ROS Const Reports as per HPI, Denies difficulty sleeping, Denies excessive sweating, Denies fatigue (new onset severe) and Denies fever(s) Eyes Denies change in vision and Denies diplopia ENT Denies dizziness Card Denies chest pain, Denies dyspnea, Denies dyspnea on exertion, Denies palpitations and Denies rapid heart rate Resp Denies dyspnea and Denies dyspnea on exertion GI Reports as per HPI, Denies abdominal pain and Denies constipation Musc Denies numbness Neuro No confusion, No dizziness, No memory loss and No numbness Psych Denies confusion, Denies depression, Denies memory loss, Denies mood swings and Denies suicidal ideation Endo Denies excessive sweating, Denies fatigue (new onset severe), Denies palpitations and Reports other (denies symptoms of hypoglycemia) Exam Const General: cooperative, healthy appearing, comfortable and no acute distress Orientation: alert HENIL Head: normal to inspection and normocephalic Eyes General: appearance normal, both eyes and all related structures Neck Neck: normal visual inspection, no lymphadenopathy and trachea midline Resp Effort Inspection: normal respiratory effort Auscultation: clear to auscultation bilaterally Cardio Rate: regular rate Rhythm: regular rhythm Musc Other: gross motor intact no deficits, full bilateral strength Skin General: no (more content not included)... Normal [facility] Stator Tester Office Visit Reporton 06-26-2024 Stator Tester Office Visit Report [address], [address] [place] [address] OFFICE VISIT Date of Service: 06/26/24 MR#: [id number] Acct: [id number] Name: KELL BURTON Rep #: [id number] : 1970 Provider: TRAVIS Galloway Age/Sex: 54/F Location: [facility] Status: Signed Intake Vital Signs 05/29/24 10:14 06/26/24 15:09 06/26/24 15:13 Height 5 ft 11 in 5 ft 11 in 5 ft 11 in Weight: 222 lb 225 lb BMI 30.9 31.4 BP 128/79 H 133/83 H Pulse 76 78 Intake Visit Reasons: 4 wk fu Signal Apprentice Required: No Is patient in pain?: No Allergies tree and shrub pollen Allergy (Mild, Verified 06/26/24 15:09) SINUS CONGESTION Medications ???Medication ???Instructions ???Recorded ???Confirmed ???Type hydrochlorothiazide 25 mg tablet 25 mg PO DAILY #90 TABLETS 03/05/24 06/26/24 Rx potassium chloride 10 mEq 20 meq (2 x 10 mEq) PO DAILY 90 04/28/24 06/26/24 Rx capsule,extended release days #180 caps topiramate 25 mg tablet 25 mg PO BID 30 days #60 tabs 05/29/24 06/26/24 Rx phentermine 37.5 mg tablet 18.75 mg (1/2 x 37.5 mg) PO QDAY 06/26/24 06/26/24 Rx (Adipex-P) #16 tabs Last Menstrual Period: 01/22/20 PFSH PFS Medical History Wears glasses Alcohol use Non-smoker Seasonal allergies Osteoarthritis Surgical History uterine ablation uterine fibroid removal History of release of tendon History of hip replacement Family History Father Pancreatic cancer Mother Hypertension Arthritis Multiple myeloma Crohn disease Osteoporosis Thyroid disorder Grandmother Breast cancer Brother Hypertension Grandmother COPD (chronic obstructive pulmonary disease) Social History adopted: No household members: spouse and children number of children: 3 current occupational status: employed current occupation: teacher - [employer] history of recent travel: No sexually active: Yes Smoking Status: Never smoker Electronic Cigarette Use: not used alcohol intake: current alcohol intake frequency: holidays/special occasions only substance use type: does not use what type of physical activity do you participate in: aerobics and weight training frequency: 3-4 times per week seatbelt use: always do you feel safe at home: Yes additional social history: - [place] History 3 Elective abortions Hx Para 3 Spontaneous abortions Hx # Term Pregnancies Ectopic pregnancies Hx # Pregnancies Multiple births # of living children 3 Past Pregnancies Del. Date Name GA/Weeks Outcome Route Bth Weight Gen Labor Lgth Anesthesia Del Locatn Provider FOB Unknown Robert 1996 Unknown Aamir 1999 Unknown Bailey 2001 HPI 4 wk fu Details: KELL BURTON is a 54 year old Female presenting for a weight management consultation. She is here to reduce her weight because [ ]. Female Reproductive History Last Menstrual Period: 01/22/20 ROS Const Reports as per HPI, Denies difficulty sleeping, Denies excessive sweating, Denies fatigue (new onset severe) and Denies fever(s) Eyes Denies change in vision and Denies diplopia ENT Denies dizziness Card Denies chest pain, Denies dyspnea, Denies dyspnea on exertion, Denies palpitations and Denies rapid heart rate Resp Denies dyspnea and Denies dyspnea on exertion GI Reports as per HPI, Denies abdominal pain and Denies constipation Musc Denies numbness Neuro No confusion, No dizziness, No memory loss and No numbness Psych Denies confusion, Denies depression, Denies memory loss, Denies mood swings and Denies suicidal ideation Endo Denies excessive sweating, Denies fatigue (new onset severe), Denies palpitations and Reports other (denies symptoms of hypoglycemia) Assessment and Plan Assessment and Plan (1) Prediabetes: Status: Acute Plan: most recent HA1c stable. (2) HTN (hypertension): Status: Chronic Qualifiers: Hypertension type: essential hypertension Qualified Code(s): I10 - Essential (primary) hypertension Comment: on medication, recommend 5-10% weight reduction. Plan: stable today. . (3) Other obesity: Status: Acute Comment: Nutrition plan: Balanced calorie restricted nutritional plan, Mediterranean. Continue to track and focus on her protein intake; limit 8pm meal when getting home-doing better with this. Incorporate food into her in between time on M/. Incorp probiotic. Medication plan: phentermine stopped-was having heart burn; wanted to take a break; would like to restart low dose 18.75mg today; Cont Topamax back to 25mg bid of Topamax today; help curb nig (more content not included)... Normal [facility] CBC W/Diff, Automatedon 12- Absolute Lymph 2.77 X10 3/uL Normal 0.83-4.51 [facility] Comment on above: Performed By: #### L 506.1000, L503.0105, L100.0100, L500.4050 ####[facility] [address] [place], [address] Absolute Neut 4.0 X10 3/uL Normal 2.0-7.7 [facility] Comment on above: Performed By: #### L 506.1000, L503.0105, L100.0100, L500.4050 ####[facility] [address] [place], [address] Basophils/100 WBC (Bld) 0.7 % Normal 0-1 [facility] Comment on above: Performed By: #### L 506.1000, L503.0105, L100.0100, L500.4050 ####[facility] [address] [place], [address] Eosinophils/100 WBC (Bld) 2.8 % Normal 0-5 [facility] Comment on above: Performed By: #### L 506.1000, L503.0105, L100.0100, L500.4050 ####[facility] [address] [place], [address] Erythrocyte distribution width (RBC) [Ratio] 13.2 % Normal 11.6-14.6 [facility] Comment on above: Performed By: #### L 506.1000, L503.0105, L100.0100, L500.4050 ####[facility] [address] [place], [address] Hematocrit (Bld) [Volume fraction] 41.0 % Normal 37-47 [facility] Comment on above: Performed By: #### L 506.1000, L503.0105, L100.0100, L500.4050 ####[facility] [address] [place], [address] Hemoglobin (Bld) [Mass/Vol] 13.6 g/dL Normal 12.0-15.0 [facility] Comment on above: Performed By: #### L 506.1000, L503.0105, L100.0100, L500.4050 ####[facility] [address] [place], [address] IG% 0.500 Normal 0.0-0.9 [facility] Comment on above: Result Comment: IG% - Immature Granulocytes (promyelocytes, myelocytes and metamyelocytes) > 1% indicates that a LEFT SHIFT is Present. Performed By: #### L 506.1000, L503.0105, L100.0100, L500.4050 ####[facility] [address] [place], [address] Lymphocytes/100 WBC (Bld) 37.1 % Normal 19-41 [facility] Comment on above: Performed By: #### L 506.1000, L503.0105, L100.0100, L500.4050 ####[facility] [address] [place], [address] MCH (RBC) [Entitic mass] 30.2 pg Normal 27.0-32.0 [facility] Comment on above: Performed By: #### L 506.1000, L503.0105, L100.0100, L500.4050 ####[facility] [address] [place], [address] MCHC (RBC) [Mass/Vol] 33.2 g/dL Normal 32-36 [facility] Comment on above: Performed By: #### L 506.1000, L503.0105, L100.0100, L500.4050 ####[facility] [address] [place], [address] MCV (RBC) [Entitic vol] 90.9 fL Normal 81-99 [facility] Comment on above: Performed By: #### L 506.1000, L503.0105, L100.0100, L500.4050 ####[facility] [address] [place], [address] Monocytes/100 WBC (Bld) 5.0 % Normal 0-10 [facility] Comment on above: Performed By: #### L 506.1000, L503.0105, L100.0100, L500.4050 ####[facility] [address] [place], [address] Neutrophils/100 WBC (Bld) 53.9 % Normal 47-70 [facility] Comment on above: Performed By: #### L 506.1000, L503.0105, L100.0100, L500.4050 ####[facility] [address] [place], [address] Nucleated RBC (Bld) [#/Vol] 0 10*3/uL Normal 0-5 [facility] Comment on above: Performed By: #### L 506.1000, L503.0105, L100.0100, L500.4050 ####[facility] [address] [place], [address] Platelet mean volume (Bld) [Entitic vol] 9.4 fL Normal 6.2-12.0 [facility] Comment on above: Performed By: #### L 506.1000, L503.0105, L100.0100, L500.4050 ####[facility] [address] [place], [address] Platelets (Bld) [#/Vol] 282 10*3/uL Normal 150-450 [facility] Comment on above: Performed By: #### L 506.1000, L503.0105, L100.0100, L500.4050 ####[facility] [address] [place], [address] RBC (Bld) [#/Vol] 4.51 10*6/uL Normal 4.2-5.4 [facility] Comment on above: Performed By: #### L 506.1000, L503.0105, L100.0100, L500.4050 ####[facility] [address] [place], [address] RDW SD 44.0 fl High 35.1-43.9 [facility] Comment on above: Performed By: #### L 506.1000, L503.0105, L100.0100, L500.4050 ####[facility] [address] [place], [address] WBC (Bld) [#/Vol] 7.5 10*3/uL Normal 4.4-11.0 [facility] Comment on above: Performed By: #### L 506.1000, L503.0105, L100.0100, L500.4050 ####[facility] [address] [place], [address] Comprehensive Metabolic [facility] 05-29-2024 Albumin [Mass/Vol] 3.7 g/dL Normal 3.2-5.0 [facility] Comment on above: Performed By: #### L 506.1000, L503.0105, L100.0100, L500.4050 ####[facility] [address] [place], [address] Albumin/Globulin [Mass ratio] 0.9 {ratio} Normal 0.9-2.4 [facility] Comment on above: Performed By: #### L 506.1000, L503.0105, L100.0100, L500.4050 ####[facility] [address] [place], [address] ALK P 72 U/L Normal 45-117 [facility] Comment on above: Performed By: #### L 506.1000, L503.0105, L100.0100, L500.4050 ####[facility] [address] [place], [address] ALT [Catalytic activity/Vol] 23 U/L Normal 13-56 [facility] Comment on above: Performed By: #### L 506.1000, L503.0105, L100.0100, L500.4050 ####[facility] [address] [place], [address] AST [Catalytic activity/Vol] 16 U/L Normal 15-37 [facility] Comment on above: Performed By: #### L 506.1000, L503.0105, L100.0100, L500.4050 ####[facility] [address] [place], [address] Bilirubin [Mass/Vol] 0.30 mg/dL Normal 0.20-1.00 [facility] Comment on above: Result Comment: For patients on eltrombopag therapy, use of Dimension [place] TBIL is not recommended. Performed By: #### L 506.1000, L503.0105, L100.0100, L500.4050 ####[facility] [address] [place], [address] BUN/CRE 13.7 RATIO Normal 10-20 [facility] Comment on above: Performed By: #### L 506.1000, L503.0105, L100.0100, L500.4050 ####[facility] [address] [place], [address] CA,Total 9.3 mg/dL Normal 8.5-10.1 [facility] Comment on above: Performed By: #### L 506.1000, L503.0105, L100.0100, L500.4050 ####[facility] [address] [place], [address] Chloride [Moles/Vol] 110 mmol/L High 98-107 [facility] Comment on above: Performed By: #### L 506.1000, L503.0105, L100.0100, L500.4050 ####[facility] [address] [place], [address] CO2 [Moles/Vol] 27.0 mmol/L Normal 21.0-32.0 [facility] Comment on above: Performed By: #### L 506.1000, L503.0105, L100.0100, L500.4050 ####[facility] [address] [place], [address] Creatinine [Mass/Vol] 0.80 mg/dL Normal 0.55-1.02 [facility] Comment on above: Result Comment: The validity of the calculated GFR GFRAA in patients over 70 years has not been determined. Clinical correlation is essential. Performed By: #### L 506.1000, L503.0105, L100.0100, L500.4050 ####[facility] [address] [place], [address] EST GFR - AA 95 mL/min Normal >60 [facility] Comment on above: Result Comment: Afri can [place] GFR Calc Performed By: #### L 506.1000, L503.0105, L100.0100, L500.4050 ####[facility] [address] [place], [address] GAP 4 Low 5-15 [facility] Comment on above: Performed By: #### L 506.1000, L503.0105, L100.0100, L500.4050 ####[facility] [address] [place], [address] GFR/1.73 sq M.predicted among non-blacks MDRD (S/P/Bld) [Vol rate/Area] 79 mL/min/{1.73_m2} Normal >60 [facility] Comment on above: Result Comment: Non- GFR Calc Performed By: #### L 506.1000, L503.0105, L100.0100, L500.4050 ####[facility] [address] [place], [address] Globulin (S) [Mass/Vol] 3.9 g/dL Normal 2.2-4.2 [facility] Comment on above: Performed By: #### L 506.1000, L503.0105, L100.0100, L500.4050 ####[facility] [address] [place], [address] Glucose [Mass/Vol] 118 mg/dL High 74-106 [facility] Comment on above: Result Comment: Fast ing Glucose result from 100 to 125 mg/dL suggests IMPAIRED HOMEOSTASIS per A.D.A. criteria. Performed By: #### L 506.1000, L503.0105, L100.0100, L500.4050 ####[facility] [address] [place], [address] Potassium [Moles/Vol] 3.7 mmol/L Normal 3.5-5.1 [facility] Comment on above: Performed By: #### L 506.1000, L503.0105, L100.0100, L500.4050 ####[facility] [address] [place], [address] Sodium [Moles/Vol] 141 mmol/L Normal 136-145 [facility] Comment on above: Performed By: #### L 506.1000, L503.0105, L100.0100, L500.4050 ####[facility] [address] [place], [address] T PROT 7.6 g/dL Normal 6.4-8.2 [facility] Comment on above: Performed By: #### L 506.1000, L503.0105, L100.0100, L500.4050 ####[facility] [address] [place], [address] Urea nitrogen [Mass/Vol] 11 mg/dL Normal 7-18 [facility] Comment on above: Performed By: #### L 506.1000, L503.0105, L100.0100, L500.4050 ####[facility] [address] [place], [address] Stator Tester Office Visit Reporton 05-29-2024 Stator Tester Office Visit Report [facility] [address], [address] [place] [address] OFFICE VISIT Date of Service: 05/29/24 MR#: [id number] Acct: [id number] Name: KELL BURTON Rep #: [id number] : 1970 Provider: TRAVIS Galloway Age/Sex: 54/F Location: [place] Status: Signed Intake Vital Signs 04/16/24 08:22 05/12/24 09:48 05/29/24 10:14 Height 5 ft 11 in 5 ft 11 in 5 ft 11 in Weight: 222 lb BMI 30.9 BP 128/79 H Pulse 76 Intake Visit Reasons: Weight Management Signal Apprentice Required: No Is patient in pain?: No Feel stressed/tense/nerv ous/anxious/difficu lty sleeping: rather much (not sleeping well at all) Allergies tree and shrub pollen Allergy (Mild, Verified 05/29/24 10:20) SINUS CONGESTION Medications ???Medication ???Instructions ???Recorded ???Confirmed ???Type hydrochlorothiazide 25 mg tablet 25 mg PO DAILY #90 TABLETS 03/05/24 05/29/24 Rx potassium chloride 10 mEq 20 meq (2 x 10 mEq) PO DAILY 90 04/28/24 05/29/24 Rx capsule,extended release days #180 caps topiramate 25 mg tablet 25 mg PO BID 30 days #60 tabs 05/29/24 05/29/24 Rx Last Menstrual Period: 01/22/20 Zika: Zika virus screening: Negative : No Have you fallen in the past year?: No PFSH PFSH Medical History Wears glasses Alcohol use Non-smoker Seasonal allergies Osteoarthritis Surgical History uterine ablation uterine fibroid removal History of release of tendon History of hip replacement Family History Father Pancreatic cancer Mother Hypertension Arthritis Multiple myeloma Crohn disease Osteoporosis Thyroid disorder Grandmother Breast cancer Brother Hypertension Grandmother COPD (chronic obstructive pulmonary disease) Social History adopted: No household members: spouse and children number of children: 3 current occupational status: employed current occupation: teacher - biology high school history of recent travel: No sexually active: Yes Smoking Status: Never smoker Electronic Cigarette Use: not used alcohol intake: current alcohol intake frequency: holidays/special occasions only substance use type: does not use what type of physical activity do you participate in: aerobics and weight training frequency: 3-4 times per week seatbelt use: always do you feel safe at home: Yes additional social history: - [place] History 3 Elective abortions Hx Para 3 Spontaneous abortions Hx # Term Pregnancies Ectopic pregnancies Hx # Pregnancies Multiple births # of living children 3 Past Pregnancies Del. Date Name GA/Weeks Outcome Route Bth Weight Infant Gen Labor Lgth Anesthesia Del Locatn Provider FOB Unknown Robert 1996 Unknown Aamir 1999 Unknown Bailey 2001 HPI Weight Management Details: KELL BURTON is a 54 year old Female presenting for a weight management follow up. She reports she feels she is having an increase in dry mouth. She reports since starting the increased dosing she has noticed more of a brain fog. Otherwise taking medication compliantly. She is down 2 pounds since previous visit. Female Reproductive History Last Menstrual Period: 01/22/20 ROS Const Reports as per HPI, Denies difficulty sleeping, Denies excessive sweating, Denies fatigue (new onset severe) and Denies fever(s) Eyes Denies change in vision and Denies diplopia ENT Denies dizziness Card Denies chest pain, Denies dyspnea, Denies dyspnea on exertion, Denies palpitations and Denies rapid heart rate Resp Denies dyspnea and Denies dyspnea on exertion GI Reports as per HPI, Denies abdominal pain and Denies constipation Musc Denies numbness Neuro No confusion, No dizziness, No memory loss and No numbness Psych Denies confusion, Denies depression, Denies memory loss, Denies mood swings and Denies suicidal ideation Endo Denies excessive sweating, Denies fatigue (new onset severe), Denies palpitations and Reports other (denies symptoms of hypoglycemia) Exam Const General: cooperative, healthy appearing, comfortable and no acute distress Orientation: alert HENMT Head: normal to inspection and normocephalic Eyes General: appearance normal, both eyes and all related structures Neck Neck: normal visual inspection, no lymphadenopathy and trachea midline Resp Effort Inspection: normal respiratory effort Auscultation: clear to auscultation bilaterally Musc Other: gross motor intact no deficits, full bilateral strength Skin General: no rashes or lesions noted Neuro Motor: muscle tone normal throughou (more content not included)... Normal [facility] Vitamin B12on 05-29-2024 Cobalamin (Vitamin B12) [Mass/Vol] 378 pg/mL Normal 211-911 [facility] Comment on above: Performed By: #### L 506.1000, L503.0105, L100.0100, L500.4050 ####[facility] [address] [place], [address] Vitamin D,25 Hydroxyon 05-29 Vitamin D 25-OH 30.7 ng/mL Normal [facility] Comment on above: Result Comment: Johanna min D 25(OH) Status Range Deficiency <20 ng/mL (50nmol/L) Insufficiency 20 - 30 ng/mL (50 - 75 nmol/L) Sufficiency 30 - 100 ng/mL (75 - 250 nmol/L) Toxicity >100 ng/mL (>250 nmol/L) Performed By: #### L 506.1000, L503.0105, L100.0100, L500.4050 ####[facility] [address] [place], [address] Office Visit Reporton 2023 Office Visit Report [facility] [address] [place] [address] OFFICE VISIT Date of Service: 05/12/24 MR#: [id number] Acct: [id number] Patient: KELL BURTON NAVDEEP Rep #: [id number] : 1970 Provider: Dr. Chrystal duran MD Age/Sex: 53/F Location: [place] Status: Signed Intake Vital Signs 04/16/24 08:22 05/12/24 09:50 Height 5 ft 11 in 5 ft 11 in Weight: 224 lb BMI 31.2 BP 121/77 H Intake Visit Reasons: 4 WK MED CHECK Chief Complaint: med check Signal Apprentice Required: No Allergies tree and shrub pollen Allergy (Mild, Verified 05/12/24 09:51) SINUS CONGESTION Medications ???Medication ???Instructions ???Recorded ???Confirmed ???Type hydrochlorothiazide 25 mg tablet 25 mg PO DAILY #90 TABLETS 03/05/24 05/12/24 Rx topiramate 50 mg tablet 50 mg PO BID 60 days #120 tabs 04/16/24 05/12/24 Rx potassium chloride 10 mEq 20 meq (2 x 10 mEq) PO DAILY 90 04/28/24 05/12/24 Rx capsule,extended release days #180 caps Nursing Note Patient states since increasing the medication she has experienced more headaches and brain fog. Advised patient to schedule appointment with Sonia to discuss medication changes Questionnaires Weight Management Follow-Up What nutritional plan/diet are you following?: Low carb/high protein How are you tracking your food intake?: Carbon truong On average, how many days a week are you recording your food intake?: 4 How many days a week are you staying within your recommended intake goals?: 4 What is your current weekly exercise?: Weights, HIIT On a scale of 1-10, how difficult is it to follow your current weight management plan?: 7 What are you struggling most with right now in following your weight loss plan?: Headaches, time for exercise, sleep Are there any changes we need to make to your current plan right now?: Med change? Side Effects: No Chest Pain, No Palpitations, No Increased Heart Rate, No Irregular Heart Rhythm, No Increased Blood Pressure, No Change in breathing patterns, No Kidney Stones, No Change in vision, Yes Insomnia, Yes Difficulty with memory/speech (increase in brain fog ), No Numbness in hands/feet, No New onset severe fatigue, No Nausea/vomiting, No Constipation and No Depressed mood Are there any side effects interfering with quality of life enough you would want to stop medication?: Yes 05/12/24 1748 Date Chrystal Thakkar Signature: Date (if applicable) CC: Normal [facility] Absolute lymphocyte countOrd ered By: Chrystal Tinajero on 09-03-2023 Lymphocytes Auto (Unsp spec) [#/Vol] 3.20 10*3/uL 0.83-4.51 [facility] Automated lymphocyte count a s percentage of total leukocytesOrdered By: Chrystal Tinajero on 09-03-2023 Lymphocytes/100 WBC Auto (Unsp spec) 34.3 % 19-41 [facility] Basophil percentageOrdered B y: Chrystal Tinajero on 09-03-2023 Basophils/100 WBC (Bld) 0.5 % 0-1 [facility] Bilirubin [Mass/Vol] 0.30 mg/dL 0.20-1.00 [facility] Comment on above: For patients on eltr ombopag therapy, use of Dimension [place] TBIL is not recommended. Chloride [Moles/Vol] 107 mmol/L 98-107 [facility] Cholesterol [Mass/Vol] 179 mg/dL <200 [facility] Comment on above: <200 mg/dL Desirable 200-240 mg/dL Borderline >240 mg/dL High Risk Eosinophils/100 WBC (Bld) 2.3 % 0-5 [facility] Glucose [Mass/Vol] 142 mg/dL 74-106 [facility] Comment on above: Fasting Glucose resu lt greater than or equal to 126 mg/dL suggests DIABETES MELLITUS per A.D.A. criteria. Hemoglobin (Bld) [Mass/Vol] 13.7 g/dL 12.0-15.0 [facility] Monocytes/100 WBC (Bld) 5.4 % 0-10 [facility] Neutrophils (Bld) [#/Vol] 5.3 10*3/uL 2.0-7.7 [facility] Neutrophils/100 WBC (Bld) 57.2 % 47-70 [facility] Potassium [Moles/Vol] 3.4 mmol/L 3.5-5.1 [facility] Protein [Mass/Vol] 8.1 g/dL 6.4-8.2 [facility] Sodium [Moles/Vol] 141 mmol/L 136-145 [facility] Triglyceride [Mass/Vol] 73 mg/dL <199 [facility] Comment on above: The drugs N-Acetylcy steine and Metamizole may falsely depress this assay.Serum Triglycerides Reference Interval Normal <150 mg/dL Borderline high 150 - 199 mg/dL High 200 - 499 mg/dL Very High > or = 500 mg/dL WBC (Bld) [#/Vol] 9.3 10*3/uL 4.4-11.0 [facility] Determination of erythrocyte mean corpuscular volume (MCV)Ordered By: Chrystal Tinajero on 09-03-2023 MCV (RBC) [Entitic vol] 91.6 fL 81-99 [facility] Erythrocyte distribution wid th ratioOrdered By: Chrystal Tinajero on 09-03-2023 Erythrocyte distribution width (RBC) [Ratio] 13.2 % 11.6-14.6 [facility] Erythrocyte distribution wid th standard deviationOrdered By: Chrystal Tinajero on 09-03-2023 Erythrocyte distribution width (RBC) [Entitic vol] 44.3 fL 35.1-43.9 [facility] Hematocrit Auto (Bld) [Volum e fraction]Ordered By: Chrystal Tinajero on 09-03-2023 Hematocrit (Bld) [Volume fraction] 42.4 % 37-47 [facility] Immature granulocytes/100 WB C Auto (Bld)Ordered By: Chrystal Tinajero on 09-03-2023 Immature granulocytes/100 WBC (Bld) 0.300 % 0.0-0.9 [facility] Comment on above: IG% - Immature Granu locytes (promyelocytes, myelocytes and metamyelocytes) > 1% indicates that a LEFT SHIFT is Present. Laboratory - Chemistry and C hemistry - challengeOrdered By: Chrystal Tinajero on 09-03-2023 Albumin/Globulin [Mass ratio] 0.8 {ratio} 0.9-2.4 [facility] ALP [Catalytic activity/Vol] 86 U/L 45-117 [facility] ALT [Catalytic activity/Vol] 21 U/L 13-56 [facility] Cholesterol in HDL [Mass/Vol] 60 mg/dL >40 [facility] Comment on above: The drugs N-Acetylcy steine and Metamizole may falsely depress this assay. Reference Range HDL <40 mg/dL Low HDL Cholesterol HDL >or= 60 mg/dL High HDL Cholesterol Cholesterol in LDL [Mass/Vol] 104 mg/dL 0-130 [facility] CO2 [Moles/Vol] 28.0 mmol/L 21.0-32.0 [facility] Globulin (S) [Mass/Vol] 4.4 g/dL 2.2-4.2 [facility] Urea nitrogen/Creatinine [Mass ratio] 15.8 mg/mg 10-20 [facility] Laboratory - Hematology and Cell countsOrdered By: Chrystal Tinajero on 09-03-2023 MCH (RBC) [Entitic mass] 29.6 pg 27.0-32.0 [facility] MCHC (RBC) [Mass/Vol] 32.3 g/dL 32-36 [facility] Nucleated RBC/100 WBC (Bld) [Ratio] 0 % 0-5 [facility] Platelet mean volume (Bld) [Entitic vol] 9.3 fL 6.2-12.0 [facility] Platelets (Bld) [#/Vol] 324 10*3/uL 150-450 [facility] No Panel InformationOrdered By: Chrystal Tinajero on 09-03-2023 Estimated GFR (MDRD) Amer 85 mL/min >60 [facility] Comment on above: GFR Calc Estimated GFR (MDRD) Non-Af Amer 70 mL/min >60 [facility] Comment on above: Non- GFR Calc VLDL Cholesterol 15 mg/dL 5-40 [facility] RBC Auto (Bld) [#/Vol]Ordere d By: Chrystal Tinajero on 09-03-2023 RBC (Bld) [#/Vol] 4.63 10*6/uL 4.2-5.4 [facility] Serum or plasma calcitriol m easurement (mass/volume)Ordered By: Chrystal Tinajero on 09-03-2023 1,25-dihydroxyvitamin D3 [Mass/Vol] 56.6 pg/mL 24.8-81.5 [facility] Comment on above: Performed at: [address] [id number] Director: Gregorio Munoz MD, Phone: [phone] Serum or plasma calcium annemarie urement (mass/volume)Ordered By: Chrystal Tinajero on 09-03-2023 Calcium [Mass/Vol] 9.2 mg/dL 8.5-10.1 [facility] Serum or plasma creatinine m easurement (mass/volume)Ordered By: Chrystal Tinajero on 09-03-2023 Creatinine [Mass/Vol] 0.89 mg/dL 0.55-1.02 [facility] Comment on above: The validity of the calculated GFR & GFRAA in patients over 70 years has not been determined. Clinical correlation is essential. Serum or plasma thyroid stim ulating hormone (TSH) measurement (units/volume)Ordered By: Chrystal Tinajero on 09-03-2023 TSH Qn 3.17 uIU/mL 0.358-3.74 [facility] Serum or plasma urea nitroge n measurement (mass/volume)Ordered By: Chrystal Tinajero on 09-03-2023 Urea nitrogen [Mass/Vol] 14 mg/dL 7-18 [facility] Thin prep Papanicolaou smear with manual screeningOrdered By: Chrystal Tinajero on 09-03-2023 Thin prep Papanicolaou smear with manual screening 3.7 g/dL 3.2-5.0 [facility] Thin prep Papanicolaou smear with manual screening 16 U/L 15-37 [facility] Thin prep Papanicolaou smear with manual screening 6 5-15 [facility] Whole blood hemoglobin A1c/t otal hemoglobin ratio (mass fraction)Ordered By: Chrystal Tinajero on 09-03-2023 HbA1c (Bld) [Mass fraction] 5.8 % 3.8-5.6 [facility] Comment on above: Normal < 5.7 % Predi abetic 5.7 - 6.4 % Diabetic >or= 6.5 % Please note range changes. Absolute lymphocyte countOrd ered By: Dr. Souza on 09-11-2022 Lymphocytes Auto (Unsp spec) [#/Vol] 3.09 10*3/uL 0.83-4.51 [facility] Basophil percentageOrdered B y: Dr. Souza on 09-11-2022 Basophils/100 WBC (Bld) 0.6 % 0-1 [facility] Bilirubin [Mass/Vol] 0.50 mg/dL 0.20-1.00 [facility] Comment on above: For patients on eltr ombopag therapy, use of Dimension [place] TBIL is not recommended. Chloride [Moles/Vol] 106 mmol/L 98-107 [facility] Cholesterol [Mass/Vol] 184 mg/dL <200 [facility] Comment on above: <200 mg/dL Desirable 200-240 mg/dL Borderline >240 mg/dL High Risk Eosinophils/100 WBC (Bld) 2.0 % 0-5 [facility] Glucose [Mass/Vol] 130 mg/dL 74-106 [facility] Comment on above: Fasting Glucose resu lt greater than or equal to 126 mg/dL suggests DIABETES MELLITUS per A.D.A. criteria. Neutrophils (Bld) [#/Vol] 4.2 10*3/uL 2.0-7.7 [facility] Neutrophils/100 WBC (Bld) 53.2 % 47-70 [facility] Potassium [Moles/Vol] 3.9 mmol/L 3.5-5.1 [facility] Protein [Mass/Vol] 7.9 g/dL 6.4-8.2 [facility] Sodium [Moles/Vol] 140 mmol/L 136-145 [facility] Triglyceride [Mass/Vol] 128 mg/dL <199 [facility] Comment on above: The drugs N-Acetylcy steine and Metamizole may falsely depress this assay.Serum Triglycerides Reference Interval Normal <150 mg/dL Borderline high 150 - 199 mg/dL High 200 - 499 mg/dL Very High > or = 500 mg/dL WBC (Bld) [#/Vol] 7.9 10*3/uL 4.4-11.0 [facility] Blood erythrocytes count (nu mber/volume)Ordered By: Dr. Souza on 09-11-2022 RBC (Bld) [#/Vol] 4.39 10*6/uL 4.2-5.4 [facility] Blood hemoglobin measurement (mass/volume)Ordered By: Dr. Souza on 09-11-2022 Hemoglobin (Bld) [Mass/Vol] 13.0 g/dL 12.0-15.0 [facility] Blood lymphocytes/100 leukoc ytesOrdered By: Dr. Souza on 09-11-2022 Lymphocytes/100 WBC (Bld) 39.0 % 19-41 [facility] Blood monocytes/100 leukocyt esOrdered By: Dr. Souza on 09-11-2022 Monocytes/100 WBC (Bld) 4.8 % 0-10 [facility] Blood platelet mean volumeOr dered By: Dr. Souza on 09-11-2022 Platelet mean volume (Bld) [Entitic vol] 9.6 fL 6.2-12.0 [facility] Determination of erythrocyte mean corpuscular volume (MCV)Ordered By: Dr. Souza on 09-11-2022 MCV (RBC) [Entitic vol] 93.2 fL 81-99 [facility] Hematocrit Auto (Bld) [Volum e fraction]Ordered By: Dr. Souza on 09-11-2022 Hematocrit (Bld) [Volume fraction] 40.9 % 37-47 [facility] Laboratory - Chemistry and C hemistry - challengeOrdered By: Dr. Souza on 09-11-2022 ALP [Catalytic activity/Vol] 82 U/L 45-117 [facility] ALT [Catalytic activity/Vol] 24 U/L 13-56 [facility] CO2 [Moles/Vol] 29.0 mmol/L 21.0-32.0 [facility] Globulin (S) [Mass/Vol] 4.2 g/dL 2.2-4.2 [facility] Urea nitrogen/Creatinine [Mass ratio] 13.9 mg/mg 10-20 [facility] Laboratory - Hematology and Cell countsOrdered By: Dr. Souza on 09-11-2022 Erythrocyte distribution width (RBC) [Entitic vol] 46.3 fL 35.1-43.9 [facility] Erythrocyte distribution width (RBC) [Ratio] 13.6 % 11.6-14.6 [facility] Immature granulocytes/100 WBC (Bld) 0.400 % 0.0-0.9 [facility] Comment on above: IG% - Immature Granu locytes (promyelocytes, myelocytes and metamyelocytes) > 1% indicates that a LEFT SHIFT is Present. MCH (RBC) [Entitic mass] 29.6 pg 27.0-32.0 [facility] Nucleated RBC/100 WBC (Bld) [Ratio] 0 % 0-5 [facility] [Mass/Vol]Or dered By: Dr. Souza on 09-11-2022 MCHC (RBC) [Mass/Vol] 31.8 g/dL 32-36 [facility] No Panel InformationOrdered By: Dr. Souza on 09-11-2022 Estimated GFR (MDRD) Amer 97 mL/min >60 [facility] Comment on above: GFR Calc Estimated GFR (MDRD) Non-Af Amer 81 mL/min >60 [facility] Comment on above: Non- GFR Calc Platelets bldOrdered By: Dr. Souza on 09-11-2022 Platelets (Bld) [#/Vol] 307 10*3/uL 150-450 [facility] Serum or plasma albumin annemarie urement (mass/volume)Ordered By: Dr. Souza on 09-11-2022 Albumin [Mass/Vol] 3.7 g/dL 3.2-5.0 [facility] Serum or plasma albumin/glob ulin mass ratioOrdered By: Dr. Souza on 09-11-2022 Albumin/Globulin [Mass ratio] 0.9 {ratio} 0.9-2.4 [facility] Serum or plasma calcium annemarie urement (mass/volume)Ordered By: Dr. Souza on 09-11-2022 Calcium [Mass/Vol] 9.7 mg/dL 8.5-10.1 [facility] Serum or plasma cholesterol in HDL measurement (mass/volume)Ordered By: Dr. Souza on 09-11-2022 Cholesterol in HDL [Mass/Vol] 56 mg/dL >40 [facility] Comment on above: The drugs N-Acetylcy steine and Metamizole may falsely depress this assay. Reference Range HDL <40 mg/dL Low HDL Cholesterol HDL >or= 60 mg/dL High HDL Cholesterol Serum or plasma cholesterol in VLDL measurement (mass/volume)Ordered By: Dr. Souza on 09-11-2022 Cholesterol in VLDL [Mass/Vol] 26 mg/dL 5-40 [facility] Serum or plasma creatinine m easurement (mass/volume)Ordered By: Dr. Souza on 09-11-2022 Creatinine [Mass/Vol] 0.79 mg/dL 0.55-1.02 [facility] Comment on above: The validity of the calculated GFR & GFRAA in patients over 70 years has not been determined. Clinical correlation is essential. Serum or plasma low density lipoprotein (LDL) cholesterol measurement (mass/volume)Ordered By: Dr. Souza on 09-11-2022 Cholesterol in LDL [Mass/Vol] 102 mg/dL 0-130 [facility] Serum or plasma urea nitroge n measurement (mass/volume)Ordered By: Dr. Souza on 09-11-2022 Urea nitrogen [Mass/Vol] 11 mg/dL 7-18 [facility] Thin prep Papanicolaou smear with manual screeningOrdered By: Dr. Souza on 09-11-2022 Thin prep Papanicolaou smear with manual screening 18 U/L 15-37 [facility] Thin prep Papanicolaou smear with manual screening 5 5-15 [facility] Whole blood hemoglobin A1c/t otal hemoglobin ratio (mass fraction)Ordered By: Dr. Souza on 09-11-2022 HbA1c (Bld) [Mass fraction] 6.0 % 3.8-5.6 [facility] Comment on above: Normal < 5.7 % Predi abetic 5.7 - 6.4 % Diabetic >or= 6.5 % Please note range changes. Clinical Summary: Demarcus zafar 08-17-2021 MC75 OP Visit Invalid Interpretation Code [facility] Work Phone: Office Visit: EMBon 03-01-20 17 Documentation of current medications (procedure) Done Invalid Interpretation Code [facility] Fall risk assessment No Invalid Interpretation Code [facility] Protein mass conc Done Invalid Interpretation Code [facility] Tobacco smoking status NHIS Never Invalid Interpretation Code [facility] Tobacco smoking status NHIS Never smoker Invalid Interpretation Code [facility] Tobacco use CPHS Never smoker Invalid Interpretation Code [facility] Lab Report: PAP I-G HPV Hi R iskon 02-21-2017 GE use only - for [employer] import when terms are not otherwise specified Negative Invalid Interpretation Code Negative [facility] HPV HC,HGH RISK Negative Invalid Interpretation Code Negative [facility] Office Visiton 02-15-2017 Documentation of current medications (procedure) Done Invalid Interpretation Code [facility] Documentation of current medications (procedure) T Invalid Interpretation Code [facility] Fall risk assessment No Invalid Interpretation Code [facility] Tobacco smoking status NHIS Never Invalid Interpretation Code [facility] Tobacco smoking status NHIS Never smoker [facility] Tobacco use CPHS Never smoker Invalid Interpretation Code [facility] Office Visiton 05-11-2012 MG Breast screening Normal Bilateral Invalid Interpretation Code [facility] Vital Signs Date Time Vital Sign Value Performing Clinician Facility 04-09-2025 07:40-0400 Body height 180.[address] Princess Souza MD Work Phone: [facility] 04-09-2025 07:40-0400 Body mass index (BMI) [Ratio] 29.4 kg/m2 Dr. Princess Souza MD Work Phone: [facility] 04-09-2025 07:40-0400 Body temperature 98.1 [degF] Dr. Princess Souza MD Work Phone: [facility] 04-09-2025 07:40-0400 Body weight 95.[address] Princess Souza MD Work Phone: [facility] 04-09-2025 07:40-0400 Diastolic blood pressure 84 mm[Hg] Dr. Princess Souza MD Work Phone: [facility] 04-09-2025 07:40-0400 Heart rate 86 /min Dr. Princess Souza MD Work Phone: [facility] 04-09-2025 07:40-0400 Respiratory rate 14 /min Dr. Princess Souza MD Work Phone: [facility] 04-09-2025 07:40-0400 SaO2% (BldA) [Mass fraction] 98 % Dr. Princess Souza MD Work Phone: [facility] 04-09-2025 07:40-0400 Systolic blood pressure 128 mm[Hg] Dr. Princess Souza MD Work Phone: [facility] 03-18-2025 08:36-0400 Body height 180.[address] Princess Souza MD Work Phone: [facility] 03-18-2025 08:36-0400 Body mass index (BMI) [Ratio] 29.1 kg/m2 Dr. Princess Souza MD Work Phone: [facility] 03-18-2025 08:36-0400 Body weight 94.[address] Princess Souza MD Work Phone: [facility] 03-18-2025 08:36-0400 Diastolic blood pressure 85 mm[Hg] Dr. Princess Souza MD Work Phone: [facility] 03-18-2025 08:36-0400 Heart rate 89 /min Dr. Princess Souza MD Work Phone: [facility] 03-18-2025 08:36-0400 Systolic blood pressure 125 mm[Hg] Dr. Princess Souza MD Work Phone: [facility] 02-12-2025 14:41-0400 Body height 180.[address] Princess Souza MD Work Phone: [facility] 02-12-2025 14:41-0400 Body mass index (BMI) [Ratio] 29.5 kg/m2 Dr. Princess Souza MD Work Phone: [facility] 02-12-2025 14:41-0400 Body weight 95.[address] Princess Souza MD Work Phone: [facility] 02-12-2025 14:41-0400 Diastolic blood pressure 84 mm[Hg] Dr. Princess Souza MD Work Phone: [facility] 02-12-2025 14:41-0400 Heart rate 94 /min Dr. Princess Souza MD Work Phone: [facility] 02-12-2025 14:41-0400 Systolic blood pressure 136 mm[Hg] Dr. Princess Souza MD Work Phone: [facility] 01-15-2025 07:37-0400 Body height 180.[address] Princess Souza MD Work Phone: [facility] 01-15-2025 07:37-0400 Body mass index (BMI) [Ratio] 29 kg/m2 Dr. Princess Souza MD Work Phone: [facility] 01-15-2025 07:37-0400 Body weight 94.[address] Princess Souza MD Work Phone: [facility] 01-15-2025 07:37-0400 Diastolic blood pressure 84 mm[Hg] Dr. Princess Souza MD Work Phone: [facility] 01-15-2025 07:37-0400 Heart rate 81 /min Dr. Princess Souza MD Work Phone: [facility] 01-15-2025 07:37-0400 Systolic blood pressure 138 mm[Hg] Dr. Princess Souza MD Work Phone: [facility] 11-26-2024 11:00-0400 Body height 180.[address] Princess Souza MD Work Phone: [facility] 11-26-2024 11:00-0400 Body mass index (BMI) [Ratio] 30.2 kg/m2 Dr. Princess Souza MD Work Phone: [facility] 11-26-2024 11:00-0400 Body weight 98.[address] Princess Souza MD Work Phone: [facility] 11-26-2024 11:00-0400 Diastolic blood pressure 84 mm[Hg] Dr. Princess Souza MD Work Phone: [facility] 11-26-2024 11:00-0400 Heart rate 82 /min Dr. Princess Souza MD Work Phone: [facility] 11-26-2024 11:00-0400 Systolic blood pressure 138 mm[Hg] Dr. Princess Souza MD Work Phone: [facility] 10-07-2024 07:37-0400 Body height 180.[address] Princess Souza MD Work Phone: [facility] 10-07-2024 07:37-0400 Body mass index (BMI) [Ratio] 30.1 kg/m2 Dr. Princess Souza MD Work Phone: [facility] 10-07-2024 07:37-0400 Body temperature 97.6 [degF] Dr. Princess Souza MD Work Phone: [facility] 10-07-2024 07:37-0400 Body weight 98.[address] Princess Souza MD Work Phone: [facility] 10-07-2024 07:37-0400 Diastolic blood pressure 80 mm[Hg] Dr. Princess Souza MD Work Phone: [facility] 10-07-2024 07:37-0400 Heart rate 95 /min Dr. Princess Souza MD Work Phone: [facility] 10-07-2024 07:37-0400 Respiratory rate 16 /min Dr. Princess Souza MD Work Phone: [facility] 10-07-2024 07:37-0400 SaO2% (BldA) [Mass fraction] 98 % Dr. Princess Souza MD Work Phone: [facility] 10-07-2024 07:37-0400 Systolic blood pressure 138 mm[Hg] Dr. Princess Souza MD Work Phone: [facility] 09-24-2024 15:26-0400 Body mass index (BMI) [Ratio] 30.7 kg/m2 Dr. Princess Souza MD Work Phone: [facility] 09-24-2024 15:26-0400 Body weight 99.[address] Princess Souza MD Work Phone: [facility] 09-24-2024 15:26-0400 Diastolic blood pressure 85 mm[Hg] Dr. Princess Souza MD Work Phone: [facility] 09-24-2024 15:26-0400 Heart rate 88 /min Dr. Princess Souza MD Work Phone: [facility] 09-24-2024 15:26-0400 Systolic blood pressure 139 mm[Hg] Dr. Princess Souza MD Work Phone: [facility] 08-25-2024 10:55-0400 Body mass index (BMI) [Ratio] 30.8 kg/m2 Dr. Princess Souza MD Work Phone: [facility] 08-25-2024 10:55-0400 Body weight 100.[address] Princess Souza MD Work Phone: [facility] 08-25-2024 10:55-0400 Diastolic blood pressure 80 mm[Hg] Dr. Princess Souza MD Work Phone: [facility] 08-25-2024 10:55-0400 Heart rate 85 /min Dr. Princess Souza MD Work Phone: [facility] 08-25-2024 10:55-0400 Systolic blood pressure 126 mm[Hg] Dr. Princess Souza MD Work Phone: [facility] 07-31-2024 13:33-0500 Body mass index (BMI) [Ratio] 31.1 kg/m2 Dr. Princess Souza MD Work Phone: [facility] 07-31-2024 13:33-0500 Body weight 101.[address] Princess Souza MD Work Phone: [facility] 07-31-2024 13:33-0500 Diastolic blood pressure 81 mm[Hg] Dr. Princess Souza MD Work Phone: [facility] 07-31-2024 13:33-0500 Heart rate 80 /min Dr. Princess Souza MD Work Phone: [facility] 07-31-2024 13:33-0500 Systolic blood pressure 131 mm[Hg] Dr. Princess Souza MD Work Phone: [facility] 06-26-2024 15:09-0500 Body mass index (BMI) [Ratio] 31.4 kg/m2 Dr. Princess Souza MD Work Phone: [facility] 06-26-2024 15:09-0500 Body weight 102.[address] Princess Souza MD Work Phone: [facility] 06-26-2024 15:09-0500 Diastolic blood pressure 83 mm[Hg] Dr. Princess Souza MD Work Phone: [facility] 06-26-2024 15:09-0500 Heart rate 78 /min Dr. Princess Souza MD Work Phone: [facility] 06-26-2024 15:09-0500 Systolic blood pressure 133 mm[Hg] Dr. Princess Souza MD Work Phone: [facility] 08-20-2023 15:48-0400 Body height 180.[address] Princess Souza Work Phone: [facility] 08-20-2023 15:44-0400 Body mass index (BMI) [Ratio] 32.8 kg/m2 Dr. Princess Souza Work Phone: [facility] 08-20-2023 15:44-0400 Body weight 106.[address] Princess Souza Work Phone: [facility] 08-20-2023 15:44-0400 Diastolic blood pressure 81 mm[Hg] Dr. Princess Souza Work Phone: [facility] 08-20-2023 15:44-0400 Systolic blood pressure 123 mm[Hg] Dr. Princess Souza Work Phone: [facility] 01-10-2023 11:40-0400 Body temperature 98.7 [degF] Dr. Princess Souza Work Phone: [facility] 01-10-2023 11:40-0400 Diastolic blood pressure 79 mm[Hg] Dr. Princess Souza Work Phone: [facility] 01-10-2023 11:40-0400 Heart rate 67 /min Dr. Princess Souza Work Phone: [facility] 01-10-2023 11:40-0400 Respiratory rate 16 /min Dr. Princess Souza Work Phone: [facility] 01-10-2023 11:40-0400 SaO2% (BldA) [Mass fraction] 98 % Dr. Princess oSuza Work Phone: [facility] 01-10-2023 11:40-0400 Systolic blood pressure 118 mm[Hg] Dr. Princess Souza Work Phone: [facility] 01-10-2023 09:52-0400 Body height 180.[address] Princess Souza Work Phone: [facility] 01-10-2023 09:52-0400 Body mass index (BMI) [Ratio] 33.2 kg/m2 Dr. Princess Souza Work Phone: [facility] 01-10-2023 09:52-0400 Body weight [address] Princess Souza Work Phone: [facility] 11-28-2022 13:33-0400 Body mass index (BMI) [Ratio] 33.5 kg/m2 Dr. Princess Souza Work Phone: [facility] 11-28-2022 13:33-0400 Body weight 108.[address] Princess Souza Work Phone: [facility] 08-23-2022 16:07-0400 Diastolic blood pressure 78 mm[Hg] Dr. Danial Zaidi Work Phone: [facility] 08-23-2022 16:07-0400 Systolic blood pressure 136 mm[Hg] Dr. Danial Zaidi Work Phone: [facility] 08-23-2022 15:15-0400 Body height 180.[address] Danial Zaidi Work Phone: [facility] 08-23-2022 15:15-0400 Body mass index (BMI) [Ratio] 34.7 kg/m2 Dr. Danial Zaidi Work Phone: [facility] 08-23-2022 15:15-0400 Body temperature 98.8 [degF] Dr. Danial Zaidi Work Phone: [facility] 08-23-2022 15:15-0400 Body weight 112.[address] Danial Zaidi Work Phone: [facility] 08-23-2022 15:15-0400 Heart rate 93 /min Dr. Danial Zaidi Work Phone: [facility] 08-23-2022 15:15-0400 Respiratory rate 16 /min Dr. Danial Zaidi Work Phone: [facility] 08-23-2022 15:15-0400 SaO2% (BldA) [Mass fraction] 96 % Dr. Danial Zaidi Work Phone: [facility] 03-01-2017 15:23-0400 BMI (Body Mass Index) 34.39 kg/m2 Mayela Taylor DIRECTOR SECURITY MANAGEMENT [facility] 03-01-2017 15:23-0400 Body Temperature 98.5 [degF] Mayela Taylor DIRECTOR SECURITY MANAGEMENT [facility] 03-01-2017 15:23-0400 Body Temperature 98.49 [degF] Mayela Taylor DIRECTOR SECURITY MANAGEMENT [facility] 03-01-2017 15:23-0400 BP Diastolic 83 mm[Hg] Mayela Taylor DIRECTOR SECURITY MANAGEMENT [facility] 03-01-2017 15:23-0400 BP Systolic 147 mm[Hg] Mayela Taylor DIRECTOR SECURITY MANAGEMENT [facility] 03-01-2017 15:23-0400 Height 180.34 cm Mayela Taylor DIRECTOR SECURITY MANAGEMENT [facility] 03-01-2017 15:23-0400 Pulse (Heart Rate) 90 /min Mayela Taylor DIRECTOR SECURITY MANAGEMENT [facility] 03-01-2017 15:23-0400 Respiratory Rate 16 /min Mayela Taylor DIRECTOR SECURITY MANAGEMENT [facility] 03-01-2017 15:23-0400 Weight 111.86 kg Mayela Taylor DIRECTOR SECURITY MANAGEMENT [facility] 02-15-2017 14:50-0400 BMI (Body Mass Index) 35.34 kg/m2 Mayela Taylor DIRECTOR SECURITY MANAGEMENT [facility] 02-15-2017 14:50-0400 Body Temperature 98.3 [degF] Mayela Taylor DIRECTOR SECURITY MANAGEMENT [facility] 02-15-2017 14:50-0400 Body Temperature 98.29 [degF] Mayela Taylor DIRECTOR SECURITY MANAGEMENT [facility] 02-15-2017 14:50-0400 BP Diastolic 90 mm[Hg] Mayela Taylor DIRECTOR SECURITY MANAGEMENT [facility] 02-15-2017 14:50-0400 BP Systolic 162 mm[Hg] Mayela Taylor DIRECTOR SECURITY MANAGEMENT [facility] 02-15-2017 14:50-0400 Height 180.34 cm Mayela Taylor DIRECTOR SECURITY MANAGEMENT [facility] 02-15-2017 14:50-0400 Pulse (Heart Rate) 81 /min Mayela Taylor DIRECTOR SECURITY MANAGEMENT [facility] 02-15-2017 14:50-0400 Respiratory Rate 16 /min Mayela Taylor NP [facility] 02-15-2017 14:50-0400 Weight 114.94 kg Mayela Taylor NP [facility] NEGATED: Highlighted [id number] 07:59-0500 Body height 180.34 cm Mar Bill AT [facility] [facility] Work Phone: NEGATED: Highlighted [id number] 07:59-0500 Body height 180 cm Mar Bill AT [facility] Work Phone: NEGATED: Highlighted [id number] 07:59-0500 Body mass index (BMI) [Ratio] 32.19 kg/m2 Mar Bill AT [facility] Work Phone: NEGATED: Highlighted [id number] 07:59-0500 Body weight 104.33 kg Mar Bill AT [facility] Work Phone: NEGATED: Highlighted [id number] 07:59-0500 Body weight 105 kg Mar Bill AT [facility] Work Phone: Encounters Encounter Date Encounter Type Care Provider Facility Start: 05-06-2025 ambulatory Princess Kesslerlay Facility :[facility] Start: 04-16-2025 End: 04-16-2025 ambulatory Princess [place] Facility:[facility] Start: 04-09-2025 End: 04-09-2025 ambulatory Princess [place] Facility:[facility] Start: 03-18-2025 End: 03-18-2025 Patient encounter procedure Sonia Sears DIRECTOR SECURITY MANAGEMENT-C -[facility] Work Phone: Start: 03-18-2025 End: 03-18-[address] Princess Souza MD Work Phone: -[facility] Start: 03-18-2025 End: 03-18-[address] Princess Souza MD Work Phone: -Outpatient Breast Imaging Start: 03-18-2025 End: 03-18-[address] Princess Souza MD -[facility] Work Phone: Start: 03-18-2025 End: 03-18-2025 ambulatory Princess Souza Facility:[facility] Start: 02-12-2025 End: 02-12-2025 Patient encounter procedure Sonia ROBLES -[facility] Work Phone: Start: 02-12-2025 End: 02-12-[address] Princess Souza MD Work Phone: -[facility] Start: 01-15-2025 End: 01-15-2025 Patient encounter procedure Sonia ROBLES -[facility] Work Phone: Start: 01-15-2025 End: 01-15-[address] Princess Souza MD Work Phone: -[facility] Start: 11-26-2024 End: 11-26-2024 Patient encounter procedure Sonia ROBLES -[facility] Work Phone: Start: 11-26-2024 End: 11-26-[address] Princess Souza MD Work Phone: [facility] Work Phone: Start: 10-15-2024 Encounter for antibo dy response examination Princess Souza [facility] Start: 10-07-2024 End: 10-07-[address] Princess Souza MD Work Phone: [facility] Work Phone: Start: 10-07-2024 End: 10-07-[address] Princess Souza MD -[facility] Work Phone: Start: 10-07-2024 End: 10-07-[address] Princess Souza MD [facility] Start: 10-07-2024 End: 10-07-2024 ambulatory Princess Souza Facility:[facility] Start: 09-24-2024 End: 09-24-2024 Patient encounter procedure Sonia ROBLES -[facility] Work Phone: Start: 09-24-2024 End: 09-24-2024 ambulatory Sonia Reyesestephanie Facility:[facility] Start: 08-25-2024 End: 08-25-[address] Chrystal Tinajero MD -[facility] Work Phone: Start: 08-25-2024 End: 08-25-2024 ambulatory Chrystal Tinajero Facility:[facility] Start: 07-31-2024 End: 07-31-2024 Patient encounter procedure Sonia HANCOCKC -[facility] Work Phone: Start: 07-31-2024 End: 07-31-2024 ambulatory Sonia Sears Facility:[facility] Start: 06-26-2024 End: 06-26-2024 Patient encounter procedure Sonia ROBLES -[facility] Work Phone: Start: 06-26-2024 End: 06-26-2024 ambulatory Soniajeremiah Reyesestephanie Facility:[facility] Start: 05-29-2024 End: 05-29-2024 ambulatory Sonia Sears Facility:[facility] Start: 05-29-2024 End: 05-29-2024 ambulatory Sonia Sears Facility:[facility] Start: 05-12-2024 End: 05-12-2024 ambulatory Chrystal Tinajero Facility:[facility] Start: 09-03-2023 End: 09-03-[address] Princess Souza Work Phone: [facility] Work Phone: Start: 09-03-2023 End: 09-03-[address] Princess Souza Work Phone: [facility]-Pulmonary Services/Neurology Work Phone: Start: 08-20-2023 End: 08-20-[address] Princess Souza Work Phone: [facility] Work Phone: Start: 02-26-2023 End: 02-26-[address] Princess Souza Work Phone: [facility] Work Phone: Start: 02-26-2023 End: 02-26-[address] Princess Souza Work Phone: [facility]-Outpatient Breast Imaging Work Phone: Start: 01-10-2023 Non-patient / Non-visit Dr. Copeland Work Phone: [facility] Start: 01-10-2023 End: 01-10-2023 Admission to same day surgery center Dr. Princess Souza Work Phone: [facility]-Endoscopy Work Phone: Start: 01-10-2023 End: 01-10-[address] Princess Souza Work Phone: [facility] Work Phone: Start: 11-28-2022 Non-patient / Non-visit Dr. Copeland Work Phone: [facility] Work Phone: Start: 09-11-2022 End: 09-11-[address] Danial Zaidi Work Phone: [facility] Work Phone: Start: 09-11-2022 End: 09-11-[address] Danial Zaidi Work Phone: [facility]-Laboratory, [facility] Start: 08-23-2022 End: 08-23-[address] Danial Zaidi Work Phone: [facility] Start: 06-26-2022 End: 08-24-2022 ambulatory LEE HESS MD Facility:[facility] Start: 06-26-2022 End: 08-24-2022 Physical therapy management LEE HESS MD [facility] Start: 02-09-2022 End: 02-09-2022 ambulatory Dillan Noland [facility] Comment on above: Primary osteoarthrit is of right hip (Primary Dx) Start: 02-02-2022 End: 02-02-2022 ambulatory Dillan Noland [facility] Comment on above: Primary osteoarthrit is of right hip (Primary Dx) Start: 01-25-2022 End: 01-25-2022 ambulatory Dillan Noland [facility] Comment on above: Primary osteoarthrit is of right hip (Primary Dx) Start: 01-17-2022 End: 01-17-2022 ambulatory Mariaelena Ramiro MCFADDEN Work Phone: [facility] Comment on above: Primary osteoarthrit is of right hip (Primary Dx) Start: 01-12-2022 End: 01-12-2022 Patient encounter procedure [facility]-Outpatient Breast Imaging Start: 01-10-2022 End: 01-10-2022 ambulatory Dillan Noland [facility] Comment on above: Primary osteoarthrit is of right hip (Primary Dx) Procedures Date Procedure Procedure Detail Performing Clinician Start: 03-18-2025 Screening mammography Lazaro Souza MD Work Phone: Start: 02-26-2023 Screening mammography Lazaro Souza Work Phone: Start: 01-10-[address] Princess Souza Work Phone: Start: 01-12-2022 Screening mammography Start: 08-17-2021 End: 08-17-2021 BP scrn no perf at interval Lee Hess MD Work Phone: Start: 08-17-2021 End: 08-17-2021 Calc BMI out nrm lucy nof/u Lee Hess MD Work Phone: Start: 08-17-2021 End: 08-17-2021 Current tobacco non-user cad cap copd pv dm Lee Hess MD Work Phone: Start: 08-17-2021 End: 08-17-2021 Docrev cur meds by elir[facility] clin Lee Hess MD Work Phone: Start: 08-17-2021 End: 08-17-2021 No doc of pain Lee Hess MD Work Phone: Start: 08-17-2021 End: 08-17-2021 Osteoarthritis symptoms&funcjal status asses Lee Hess MD Work Phone: Start: 08-17-2021 End: 08-17-2021 Patient encounter procedure Lee Hess MD Work Phone: Start: 03-01-2017 End: 03-01-2017 Endometrial bx w/wo endocervix bx w/o dilat spx Mayela Taylor DIRECTOR SECURITY MANAGEMENT Work Phone: Start: 03-01-2017 End: 03-01-2017 Biopsy of uterus lining Mayela Taylor DIRECTOR SECURITY MANAGEMENT Work Phone: Start: 02-15-2017 End: 03-01-2017 Gynecologic examination Encounter for gynecological examination (general) (routine) with abnormal findings Shereen Almeida RN RN Start: 02-15-2017 End: 03-01-2017 Screening mammography Mammogram yearly screening Shereen Almeida RN RN Start: 02-15-2017 End: 03-01-2017 Gynecologic examination Encounter for gynecological examination (general) (routine) with abnormal findings Mayela Taylor DIRECTOR SECURITY MANAGEMENT Start: 02-15-2017 End: 03-01-2017 Screening mammography Mammogram yearly screening Mayela Taylor DIRECTOR SECURITY MANAGEMENT Start: 09-28-2011 Mammography Dillan Morales on PT NEGATED: Highlighted rowStart: 08-17-2021 End: 08-17-2021 Documentation of current medications Mar Bill AT Plan of Treatment Date Care Activity Detail Author Start: 04-28-2025 DXA Bone [Mass/Area] Bone density [facility] Start: 04-09-2025 End: 04-09-2025 Patient encounter procedure Prediabetes -[facility] Work Phone: Start: 01-10-2023 Colonoscopy flx dx w/collj spec when pfrmd DIAGNOSTIC COLONOSCOPY [facility] Start: 01-10-2023 Patient discharge [facility] Start: 02-09-2022 Influenza vaccination INFLUENZA (#1) [facility] Start: 08-17-2021 End: 08-17-2021 Patient encounter procedure Appointment [facility] Work Phone: Start: 08-17-2021 End: 08-17-2021 Radiologic examination pelvis 1/2 views XR PELVIS 1-2 VWS [facility] Work Phone: Start: 07-17-2021 COVID-19 VACCINE (4 - Booster for Pfizer series) COVID-19 VACCINE (4 - Booster for Pfizer series) [facility] Start: 2019 SHINGRIX VACCINE (1 of 2) SHINGRIX VACCINE (1 of 2) [facility] Start: 03-01-2017 End: 03-01-2017 Appointment [facility]ment [facility] Start: 03-01-2017 End: 03-01-2017 Endometrial bx w/wo endocervix bx w/o dilat spx [facility] Start: 03-01-2017 End: 03-01-2017 Biopsy of uterus lining Endometrial Biopsy [facility] Start: 02-15-2017 End: 02-15-2017 Appointment Appointment [facility] Start: 02-15-2017 End: 02-15-2017 Mammogram, screening Mammogram, Screening, both breasts [facility] Start: 02-15-2017 End: 02-15-2017 Mammogram, screening Mammogram, Screening, both breasts [facility] Start: 09-18-2016 HPV TESTING HPV TESTING [facility] Start: 09-18-2016 PAP TESTING PAP TESTING [facility] Start: 08-01-2015 LIPID SCREEN LIPID SCREEN [facility] Start: 2014 COLOGUARD (FIT-DNA) COLOGUARD (FIT-DNA) [facility] Start: 2014 Colonoscopy COLONOSCOPY [facility] Start: 2014 COLORECTAL CANCER SCREENING COLORECTAL CANCER SCREENING [facility] Start: [address] COLONOGRAPHY [facility] Start: 2014 DIABETES SCREEN DIABETES SCREEN [facility] Start: 2014 FECAL OCCULT BLOOD FECAL OCCULT BLOOD [facility] Start: 2014 SIGMOIDOSCOPY SIGMOIDOSCOPY [facility] Start: 09-27-2012 Mammography MAMMOGRAM [facility] Start: 1988 Urine microalbumin profile DTAP,TDAP,TD (1 - Tdap) [facility] Start: 1987 HEPATITIS C SCREENING HEPATITIS C SCREENING [facility] Start: 1987 HIV SCREENING HIV SCREENING [facility] Start: 1981 Adult depression screening assessment DEPRESSION SCREENING [facility] Start: 1969 HEPATITIS B (1 of 3 - 3-dose series) HEPATITIS B (1 of 3 - 3-dose series) [facility] CBC W Auto Different ial panel - Blood [facility] Colonoscopy [facility] Comprehensive metabo lic 1999 panel - Serum or Plasma [facility] Lipid 1996 panel - S ayush or Plasma [facility] Patient referral [facility] Work Phone: [facility] Immunizations Immunization Date Immunization Notes Care Provider Fa cility 02-16-2025 Covid (Spikevax) Dr. Princess Souza MD Work Phone: [facility] 02-16-2025 Influenza, injectabl e, Madin Arabella Canine Kidney, preservative free, quadrivalent Dr. Princess Suoza MD Work Phone: [facility] 02-16-[address] Princess Souza MD Work Phone: [facility] 02-29-2024 Influenza, injectabl e, Madin [place] Canine Kidney, preservative free, quadrivalent Dr. Princess Souza MD Work Phone: [facility] 02-29-2024 Pfizer Covid-19 (Comirnaty) Dr. Princess Souza MD Work Phone: [facility] 04-11-2023 influenza, injectabl e, quadrivalent, preservative free Dr. Princess Souza MD Work Phone: [facility] 04-11-2023 Pfizer Covid-19 ([facility]) Dr. Princess Souza MD Work Phone: [facility] 08-23-2022 tetanus toxoid, redu flor diphtheria toxoid, and acellular pertussis vaccine, adsorbed Dr. Danial Zaidi Work Phone: [facility] 04-05-2022 Covid Moderna Bivale nt Booster Dr. Princess Souza MD Work Phone: [facility] 03-19-2022 influenza, injectabl e, quadrivalent, preservative free Dr. Princess Souza Work Phone: [facility] 03-19-2022 influenza, seasonal, injectable Dr. Danial Zaidi Work Phone: [facility] 03-19-2022 Seasonal, quadrivale nt, recombinant, injectable influenza vaccine, preservative free Dr. Princess Souza Work Phone: [facility] 01-12-2022 Covid (Moderna) Dr. Danial medina Work Phone: [facility] 03-16-2021 Covid (Pfizer) Dr. Danial tobias Work Phone: [facility] 03-16-2021 influenza, injectabl e, quadrivalent, preservative free Dr. Princess Souza Work Phone: [facility] 03-16-2021 influenza, seasonal, injectable Dr. Danial Zaidi Work Phone: [facility] 08-11-2020 Covid (Pfizer) Dr. Danial tobias Work Phone: [facility] 07-21-2020 Covid (Pfizer) Dr. Danial tobias Work Phone: [facility] 03-26-2020 Influenza, injectabl e, Madin [place] Canine Kidney, preservative free, quadrivalent Dr. Dnaial Zaidi Work Phone: [facility] 04-05-2019 Influenza, injectabl e, Madin [place] Canine Kidney, preservative free, quadrivalent Dr. Danial Zaidi Work Phone: [facility] 04-10-2018 Influenza, injectabl e, Madin [place] Canine Kidney, preservative free, quadrivalent Dr. Danial Zaidi Work Phone: [facility] 03-11-2013 influenza virus vaccine, unspecified formulation Dillan Noland PT [facility] Payers Date Payer Category Payer Self-pay [id number] 2021 Unknown MMO MMO [employer] [id number] 2021-Present [phone] [address] [place] [address] PPO [id number] 2021 Unknown MMO MMO [employer] [id number] 2021-Present [phone] [address] [place] [address] PPO [id number] 2001 Unknown [id number] 1969 Unknown [id number] Unknown [id number] Unknown [id number] Unknown [id number] Unknown [id number] Unknown [id number] Unknown [id number] Unknown [id number] Unknown [id number] Unknown [id number] Unknown [id number] Unknown [id number] Unknown [id number] Unknown [id number] Unknown [id number] [id number] Unknown [id number] Unknown [id number] Unknown [id number] Social History Date Type Detail Facility Start: 02-21-2021 End: 08-20-2023 Assertion Unknown if ever smoked [facility] Work Phone: Start: 09-19-2011 End: 03-18-2025 Tobacco smoking status NHIS Never smoked tobacco [facility] Start: 09-11-2016 Alcohol intake Current drinke r of alcohol (finding) [facility] Start: 09-11-2016 Alcohol intake Swetha d [facility] Start: 04-11-2013 History SDOH Alcohol Comment Occasionaly [facility] Start: 1970 Sex Assigned At Not on file C [facility] Start: 12-30-2021 End: 01-09-2022 Exposure to SARS-CoV-2 (event) Not sure [facility] Start: 09-19-2011 Tobacco use and exposure Smokeless tobacco non-user [facility] Start: 1970 Sex Assigned At Female A [facility] Tobacco smoking status No Smoking Status Entered [facility] Sex Female [facility] NEGATED: Highlighted rowStart: 08-17-2021 End: 08-17-2021 Employment detail Employment detail [facility] Work Phone: NEGATED: Highlighted row [facility] Goals Date Patient Goal Desired Activity /State Mental Status Date Assessment Result Facility 01-10-2023 Cognitive function Voice/Name [facility] Work Phone: 01-10-2023 Cognitive function Patient Orien tation Person;Place;Time [facility] Work Phone: Clinical Notes 01-10-2022 to 01-15-2025 Note Date & Type Note Facility 01-15-2025 Evaluation note Diagnosis Onset Date Resolution Caregiver stress acute January 152024 9:26am Other obesity acute January 15, 2025 9:26am Prediabetes acute January 15, 025 9:26am HTN (hypertension) chronic January 15, 2025 9:26am Obesity with body mass index (BMI) of 30.0 to 39.9 inactive January 15, 2025 9:26am Caregiver stress acute 2024 2:39pm Other obesity acute February 122024 2:39pm Prediabetes acute February 2:39pm HTN (hypertension) chronic 2024 2:39pm Obesity with body mass index (BMI) of 30.0 to 39.9 inactive February 12, 2 025 2:39pm Caregiver stress acute March 18, 2025 8:33am Other obesity acute March 8:33am Prediabetes acute March 18, 2025 8:33am HTN (hypertension) chronic Octobe 2024 8:33am Obesity with body mass index (BMI) of 30.0 to 39.9 inactive March 18 8:33am Prediabetes acute April 09, 2025 7:23am Screening for cardiovascular condition noneactive April 09, 2025 7:23am Overweight (BMI 25.0-29.9) noneactive April 09 7:23am Grief noneactive April 09, 2025 7:23am Family history of osteoporosis noneactive April 09 7:23am Essential hypertension noneactive Oc tober 2024 7:23am Left shoulder pain noneactive Octobe r 2024 7:23am [facility] Work Phone: 1(335) 622-551806-18-2025 Evaluation note* Diagnosis Onset Date Resolution Status Admit Date Obesity with body mass index (BMI) of 30.0 to 39.9 acute November 26, 2024 10:57am Other obesity acute November 26, 2024 10:57am Prediabetes acute November 26 10:57am HTN (hypertension) chronic November 092024 10:57am Caregiver stress acute January 152024 9:26am Obesity with body mass index (BMI) of 30.0 to 39.9 acute January 9:26am Other obesity acute January 15, 2025 9:26am Prediabetes acute January 15, 9:26am HTN (hypertension) chronic January 15, 2025 9:26am Caregiver stress acute 2024 2:39pm Obesity with body mass index (BMI) of 30.0 to 39.9 acute February 12, 2025 2:39pm Other obesity acute February 122024 2:39pm Prediabetes acute February 2:39pm HTN (hypertension) chronic 2024 2:39pm [facility] Work Phone: 1(965) 453-236806-18-2025 Evaluation note* Diagnosis Onset Date Resolution Status Admit Date Obesity with body mass index (BMI) of 30.0 to 39.9 acute November 26, 2024 10:57am Other obesity acute November 26, 2024 10:57am Prediabetes acute November 26 10:57am HTN (hypertension) chronic November 092024 10:57am Caregiver stress acute January 152024 9:26am Obesity with body mass index (BMI) of 30.0 to 39.9 acute January 9:26am Other obesity acute January 15, 2025 9:26am Prediabetes acute January 15, 9:26am HTN (hypertension) chronic January 15, 2025 9:26am Caregiver stress acute 2024 2:39pm Obesity with body mass index (BMI) of 30.0 to 39.9 acute February 12, 2025 2:39pm Other obesity acute February 122024 2:39pm Prediabetes acute February 2:39pm HTN (hypertension) chronic 2024 2:39pm Caregiver stress acute March 18, 2025 8:33am Obesity with body mass index (BMI) of 30.0 to 39.9 acute March 8:33am Other obesity acute March 8:33am Prediabetes acute March 18, 2025 8:33am HTN (hypertension) chronic 2024 8:33am [facility] Work Phone: 1(445) 110-574904-16-2025 Evaluation note* Diagnosis Onset Date Resolution Status Admit Date Obesity with body mass index (BMI) of 30.0 to 39.9 acute September 3:22pm Other obesity acute September 24, 2024 3:22pm Prediabetes acute September 24 2 025 3:22pm HTN (hypertension) chronic September 24, 2024 3:22pm Prediabetes acute October 07, 2 025 7:23am Sleep concern noneactive October 07, 2024 7:23am Screening for depression noneactive October 07, 2024 7:23am Essential hypertension noneactive Ap ril 2024 7:23am Immunity status testing noneactive A pril 2024 7:23am Obesity (BMI 30-39.9) noneactive Apr il 2024 7:23am Obesity with body mass index (BMI) of 30.0 to 39.9 acute November 26, 2024 10:57am Other obesity acute November 26, 2024 10:57am Prediabetes acute November 26 10:57am HTN (hypertension) chronic November 092024 10:57am Obesity with body mass index (BMI) of 30.0 to 39.9 acute January 9:26am Other obesity acute January 15, 2025 9:26am Prediabetes acute January 15, 025 9:26am HTN (hypertension) chronic January 15, 2025 9:26am [facility] Work Phone: 1(802) 657-554402-20-2025 Evaluation note* Diagnosis Onset Date Resolution Status Admit Date Obesity with body mass index (BMI) of 30.0 to 39.9 acute July 132024 1:16pm Other obesity acute July 312024 1:16pm Prediabetes acute July 1:16pm HTN (hypertension) chronic 2024 1:16pm Obesity with body mass index (BMI) of 30.0 to 39.9 acute August 10:40am Other obesity acute August 25, 2024 10:40am Prediabetes acute August 25, 025 10:40am HTN (hypertension) chronic August 25, 2024 10:40am Obesity with body mass index (BMI) of 30.0 to 39.9 acute September 3:22pm Other obesity acute September 24, 2024 3:22pm Prediabetes acute September 24, 2 025 3:22pm HTN (hypertension) chronic September 24, 2024 3:22pm Prediabetes acute October 07, 2 025 7:23am Sleep concern noneactive October 07, 2024 7:23am Screening for depression noneactive October 07, 2024 7:23am Essential hypertension noneactive Ap ril 2024 7:23am Immunity status testing noneactive A pril 2024 7:23am Obesity (BMI 30-39.9) noneactive Apr il 2024 7:23am Obesity with body mass index (BMI) of 30.0 to 39.9 acute November 26, 2024 10:57am Other obesity acute November 26, 2024 10:57am Prediabetes acute November 26 10:57am HTN (hypertension) chronic November 092024 10:57am [facility] Work Phone: 1(527) 825-7063924401-35-5781 Evaluation note* Diagnosis Onset Date Resolution Status Admit Date Obesity with body mass index (BMI) of 30.0 to 39.9 acute June 262024 3:00pm Other obesity acute June 3:00pm Prediabetes acute June 26, 2024 3:00pm HTN (hypertension) chronic 2024 3:00pm Obesity with body mass index (BMI) of 30.0 to 39.9 acute July 132024 1:16pm Other obesity acute July 312024 1:16pm Prediabetes acute July 1:16pm HTN (hypertension) chronic 2024 1:16pm Obesity with body mass index (BMI) of 30.0 to 39.9 acute August 10:40am Other obesity acute August 25, 2024 10:40am Prediabetes acute August 25, 2 025 10:40am HTN (hypertension) chronic August 25, 2024 10:40am Obesity with body mass index (BMI) of 30.0 to 39.9 acute September 3:22pm Other obesity acute September 24, 2024 3:22pm Prediabetes acute September 24, 2 025 3:22pm HTN (hypertension) chronic September 24, 2024 3:22pm Prediabetes acute October 07, 2 025 7:23am Sleep concern noneactive October 07, 2024 7:23am Screening for depression noneactive October 07, 2024 7:23am Essential hypertension noneactive Ap ril 2024 7:23am Immunity status testing noneactive A pril 2024 7:23am Obesity (BMI 30-39.9) noneactive Apr il 2024 7:23am [facility] Work Phone: [phone] Procedure [facility] 01-10-2023 Procedure [facility]09-02-2022 History of Present illness Narrative* Dillan Noland, PT - 02/10/2022 12:30 PM EDT Episode Visit Count: 5 Therapist That Will Oversee The Plan Of Care: Dillan Noland Start of Care Date: 01/10/22 Onset Date: 01/11/20 REHABILITATION AND SPORTS THERAPY PHYSICAL THERAPY PROGRESS REPORT PLAN OF CARE UPDATE: Assessment: Kell Burton demonstrates significant improvement in standing, walking, bending, heavy exertion, and working . She hasprogressed toward goals. Patient continues to present with impairments in overall function, range of motion, and strength that interfere with . Current prognosis isGood due to: current objective clinical presentation;good overall health status;positive past response to therapy;within-session changes;good support system/ coping skills . She will benefit from continued skilled therapy services to meet the updated goals for this plan of care as noted below. Goals updated on 02/09/2022. Goals for Episode of Care: created on 01/10/22 through 02/21/22 [place] in home exercise program. Met Patient will decrease pain to 3/10 with functional activities to allow patient to improve standing tolerance for ADLs. Partially met Patient will increase active and passive ROM of R hip flexion/function flexion to WNL to allow pt to to improve performance of ADLs. Progressing towards Patient will demonstrate increase in RLE strength to 4+/5 during manual muscle testing in order to improve function for basic self-care tasks, home management tasks, leisure / recreation skills, light functional tasks, prior functional tasks and work tasks. Progressing towards Perform tying shoes, walking, work tasks with decreased report of symptoms/pain in 4-6 weeks. Met Perform walking without pain. Met Patient Goals: Walk better, with less pain, come up with a HEP to perform until [place] Planned Interventions, Frequency, and Duration: 1x/month, 8 weeks Total Number of Visits Planned: 2 Patient to be seen for Therapeutic exercise (11163);Neuromuscular re-education (68832);Self-longterm management (08783);Manual therapy (60332);Therapeutic activities (95164);Patient/Family/CaregiverEducation;Body Mechanics Training PLAN FOR NEXT VISIT: AK SUBJECTIVE: Patient Reason for Visit: Pt continues to do well, but has had some intermittent pain in the R buttocks. Starts in the morning, but goes away after being up and moving for a few hours. Pain: Pain Pain Level: 2 Pain Location: Hip - Right Description: Sore;Sharp Frequency: Intermittent Post Treatment Pain Post Treatment Pain Level: 0 Post Treatment Pain Location: Hip - Right Post Treatment Symptoms: no pain PROMIS Scales Higher is Better 01/09/2022 Phys Func - Score 47 (within normal limits) Phys Func - Percentile 38 % Social Roles - Score 39 (moderate dysfunction) Social Role - Percentile 14 % Self-Eff Symptom - Score 39 (Low) Self-Eff Symptom - Percentile 14 % T-scores: mean of general population = 50. 5 points is clinically meaningfully difference Percentiles provide an indication of how the patient's score ranks in relation to the general population. Higher percentile rankings indicate better function/quality of life. 50th percentile is the average of the general population and indicates half of respondents had a worse score. Lower is Better 01/09/2022 Fatigue - Score 50 (within normal limits) Fatigue - Percentile 50 % T-scores: mean of general population = 50. 5 points is clinically meaningfully difference Percentiles provide an indication of how the patient's score ranks in relation to the general population. Higher percentile rankings indicate better function/quality of life. 50th percentile is the average of the general population and indicates half of respondents had a worse score. OBJECTIVE MEASURES WITH LEVEL OF FUNCTION: LE PROM R LE PROM: Minimal limitations in R hip LE Strength Trunk Strength: 4-/5 R LE Strength: 4/5 L LE Strength: 4+/5 TREATMENT: Therapeutic Exercise: 1: SciFit seat 14 x 5 minutes 2: PROM R hip flexion and ER at 90 degrees flexion x10 each 3: Reviewed HEP 4: Objective measures obtained Skilled Intervention: Patient was educated in proper exercise technique and purpose for exercises. Skilled judgment was provided in selection of appropriate interventions. Correct performance of therapeutic exercises was facilitated with verbal, visual, and tactile cuing. Manual Therapy: 1: STM and TrPr with lacrosse ball to R short hip rotators deep to gluteals Skilled Intervention: Manual skills to improve joint mobility, ROM, and decrease pain. Utilized anatomy knowledge of the therapist, and assessment of patient's response to intervention. Billing Therapeutic Exercise Treatment Minutes: 20 Manual TherapyTreatment Minutes: 10 Total Treatment Time Minutes (timed/untimed): 30 Dillan Noland PT documented [facility] History of Present illness Narrative* Dillan Noland PT - 02/02/2022 5:23 PM EDT Episode Visit Count: 4 Therapist That Will Oversee The Plan Of Care: Dillan Noland Start of Care Date: 01/10/22 Onset Date: 01/11/20 REHABILITATION AND SPORTS THERAPY PHYSICAL THERAPY TREATMENT NOTE ASSESSMENT: Kell Burton tolerated the session well but c/o overall fatigue. She demonstrated improvements in hip abduction strength during exercises. The patient will continue to benefit from ongoing skilled physical therapy to progress toward set goals. PLAN FOR NEXT VISIT: AK SUBJECTIVE: Patient Reason for Visit: Pt has no complaint of pain, admits non- compliance with HEP due to school starting again. Pt notes fatigue due to school, tolerated exercises well during session. Pain: Pain Pain Level: 0 Pain Location: Hip - Right Post Treatment Pain Post Treatment Pain Level: 0 Post Treatment Pain Location: Hip - Right Post Treatment Symptoms: No pain OBJECTIVE MEASURES WITH LEVEL OF FUNCTION: Patient with lumbar rotation compensation with prone hip internal rotation/external rotation TREATMENT: Therapeutic Exercise: 1: SciFit seat 14 x 5 minutes (Subjective taken at this time) 2: R SKC 3x30 seconds 3: Fig 4 piriformis stretch 3x30 sec 5: SL hip abduction series 3x10 6: SLR right 3x10 8: Bridging with marches 3x10/side (discussed further progressions as well) 9: Prone IR/ER with GTB 3X10 Skilled Intervention: Patient was educated in proper exercise technique and purpose for exercises. Skilled judgment was provided in selection of appropriate interventions. Provided written instruction for home exercise program to facilitate proper performance and compliance. Correct performance of therapeutic exercises was facilitated with verbal and tactile cuing including instruction regarding HEP. Billing Therapeutic Exercise Treatment Minutes: 40 Total Treatment Time Minutes (timed/untimed): 40 Eliseo Herring, SPT Dillan Noland PT Direct supervision was provided by the licensed physical therapist for the entire treatment sessionand licensed provider made all clinical decisions. documented in this encounterPomerene [facility]08-18-2022 History of Present illness Narrative* Dillan Noland PT - 01/26/2022 5:07 PM EDT Episode Visit Count: 3 Therapist That Will Oversee The Plan Of Care: Dillan Noland Start of Care Date: 01/10/22 Onset Date: 01/11/20 REHABILITATION AND SPORTS THERAPY PHYSICAL THERAPY TREATMENT NOTE ASSESSMENT: Kell Burton tolerated the session with decreased symptoms and no issues. She demonstrated improvements in tolerance for tying shoes, noting pain free performance. The patient will continue to benefit from ongoing skilled physical therapy to progress toward set goals. PLAN FOR NEXT VISIT: AK SUBJECTIVE: Patient Reason for Visit: Pt doing much better. Notes she is able to tie shoe pain free, feels stronger and with better mobility. Pain: Pain Pain Level: 1 Pain Location: Hip - Right Description: Tightness Frequency: Intermittent OBJECTIVE MEASURES WITH LEVEL OF FUNCTION: No limitation in hip flexion or external rotation at 90 degrees flexion today TREATMENT: Therapeutic Exercise: 1: SciFit seat 14 x 5 minutes 2: R SKC 3x30 seconds 3: Fig 4 piriformis stretch 3x30 sec 4: *Adduction stretch with hip in neutral extension 3x30 sec 5: SL hip abduction 3x10 6: SLR right 2x10 8: Bridging with marches 2x10/side (discussed further progressions as well) Skilled Intervention: Patient was educated in proper exercise technique and purpose for exercises. Skilled judgment was provided in selection of appropriate interventions. Provided written instruction for home exercise program to facilitate proper performance and compliance. Correct performance of therapeutic exercises was facilitated with verbal, visual, and tactile cuing. Billing Therapeutic Exercise Treatment Minutes: 40 Total Treatment Time Minutes (timed/untimed): 40 Dillan Noland PT documented in this encounterPomerene [facility]08-09-2022 History of Present illness Narrative* Dillan Noland PT - 01/17/2022 7:44 AM EDT Episode Visit Count: 2 Therapist That Will Oversee The Plan Of Care: Dillan Noland Start of Care Date: 01/10/22 Onset Date: 01/11/20 Patient Identified by Name and Date of : Yes REHABILITATION AND SPORTS THERAPY PHYSICAL THERAPY TREATMENT NOTE ASSESSMENT: Kell Burton tolerated the session with decreased symptoms. She demonstrated improvements in tolerance for exercises with decrease overall pain.. The patient will continue to benefitfrom ongoing skilled physical therapy to progress toward set goals. PLAN FOR NEXT VISIT: Progress Strength and right hip AROM SUBJECTIVE: Patient Reason for Visit: Patient reports improved ability to put her shoe on. She reports doing exercises 1 time per day. Pain: Pain Pain Level: 3 Pain Location: Hip - Right Description: Aching Frequency: Intermittent Post Treatment Pain Post Treatment Pain Level: 2 Post Treatment Pain Location: Hip - Right Post Treatment Symptoms: feels better OBJECTIVE MEASURES WITH LEVEL OF FUNCTION: Straight leg raises right with good form and slight increase discomfort right groin. TREATMENT: Therapeutic Exercise: 1: SciFit seat 14 x 5 minutes (Education on purpose of this exercise.) 2: R SKC 3x30 seconds 3: *Fig 4 piriformis stretch 3x30 sec 4: *Hooklying rotation with purple ball between knees 1x10 (education to stay in pain free range) 5: SL hip abduction 3x10 (Education on proper alignment) 6: *SLR right 2x10 7: Clamshells 3# 3x10 (patient to use resistive band at home) 8: Glute bridges no UE assist 3x12 9: Supine adductor squeeze purple ball 5 second hold 3x10 Skilled Intervention: Patient was educated in proper exercise technique and purpose for exercises. Reviewed and educated patient on additions/changes for home exercise program as above (*). Skilled judgment was provided in selection of appropriate interventions. Provided written instruction for home exercise program to facilitate proper performance and compliance. Correct performance of therapeutic exercises was facilitated with verbal and visual cuing. Billing Therapeutic Exercise Treatment Minutes: 41 Total Treatment Time Minutes (timed/untimed): 41 LESA Cha PT documented in this encounterPomerene Hospital08-02-2022 History of Present illness Narrative* Dillan Noland PT - 01/10/2022 11:28 AM EDT Episode Visit Count: 1 Therapist That Will Oversee The Plan Of Care: Dillan Noland Start of Care Date: 01/10/22 Onset Date: 01/11/20 Patient Identified by Name and Date of : Yes REHABILITATION AND SPORTS THERAPY PHYSICAL THERAPY EVALUATION PLAN OF CARE: Assessment: Kell Burton presents with chief complaint of R hip pain and OA that interferes with rising from a chair;standing;walking;stair negotiation;bending;physical activities;recreational activities;squatting . She presents with impairments in ADL's, flexibility, gait, joint mobility, overall function, range of motion, strength and symptom management. PROMIS (Patient- Reported Outcomes Measurement Information System) scores were reviewed and social roles domain and self efficacy domainidentified as a rehabilitation concern. Prognosis for therapy is Good due to: current objective clinical presentation;good overall health status;good support system/ coping skills . She will benefit from skilled therapy services to meet the goals established for this plan of care as noted below. Goals for Episode of Care: created on 01/10/22 through 02/21/22 [place] in home exercise program. Patient will decrease pain to 3/10 with functional activities to allow patient to improve standing tolerance for ADLs. Patient will increase active and passive ROM of R hip flexion/function flexion to WNL to allow pt to to improve performance of ADLs. Patient will demonstrate increase in RLE strength to 4+/5 during manual muscle testing in order to improve function for basic self-care tasks, home management tasks, leisure / recreation skills, light functional tasks, prior functional tasks and work tasks. Perform tying shoes, walking, work tasks with decreased report of symptoms/pain in 4-6 weeks. Perform walking without pain. Patient Goals: Walk better, with less pain, come up with a HEP to perform until [place] Planned Interventions, Frequency, and Duration: Current Frequency: 1x/week Duration: 4 weeks Total Number of Visits Planned: 4 Planned Treatment Interventions: Therapeutic exercise (26716);Neuromuscular re- education (96866);Manual therapy (72797);Therapeutic activities (75380);Self- longterm management (13773);Gait Training (01777);Aquatic PT (11702);Patient/Family/Caregiver Education;Body Mechanics Training PLAN FOR NEXT VISIT: Assess carry over of HEP, may try recumbent bike or scifit, manual if needed to adductors Patient demonstrates good understanding of plan of care and treatment. The above goals and plan of care were discussed and agreed upon by patient/family. SUBJECTIVE: Kell Burton is a 51 year old female seen today for R hip pain for a few years, worsening onset lately to the point of sharp, stabbing, stop you in your tracks like pain at times. Received an injection and this has eased the intensity of the pain. Pt wants to put off W[place] until April by building strength, walking better, and improving mobility to put her shoes on. Patient Goals: Walk better, with less pain, come up with a HEP to perform until [place] Functional Limitations: rising from a chair;standing;walking;stair negotiation;bending;physical activities;recreational activities;squatting Prior Level of Function: Independent without limitations Relevant History Employment: [employer] Apprentice: See Comment [employer] Occupation: teacher Intake Information: Prescription present Previous Treatment: Injections Pain: Pain Pain Level: 10 Pain Location: Hip - Right Description: Sharp;Stabbing;Aching;Sore;Tightness Frequency: Intermittent PROMIS Scales Higher is Better 01/09/2022 Phys Func - Score 47 (within normal limits) Phys Func - Percentile 38 % Social Roles - Score 39 (moderate dysfunction) Social Role - Percentile 14 % Self-Eff Symptom - Score 39 (Low) Self-Eff Symptom - Percentile 14 % T-scores: mean of general population = 50. 5 points is clinically meaningfully difference Percentiles provide an indication of how the patient's score ranks in relation to the general population. Higher percentile rankings indicate better function/quality of life. 50th percentile is the average of the general population and indicates half of respondents had a worse score. Lower is Better 01/09/2022 Fatigue - Score 50 (within normal limits) Fatigue - Percentile 50 % T-scores: mean of general population = 50. 5 points is clinically meaningfully difference Percentiles provide an indication of how the patient's score ranks in relation to the general population. Higher percentile rankings indicate better function/quality of life. 50th percentile is the average of the general population and indicates half of respondents had a worse score. OBJECTIVE MEASURES WITH LEVEL OF FUNCTION: LE AROM R LE AROM: moderate limitations in hip flexion, ER, major limitation in hip IR LE Strength Trunk Strength: 3+/5 R LE Strength: 4-/5 L LE Strength: 4+/5 Special Tests - Hip and Spine Hip and Spine Special Tests: Scour Test Scour Test: Right Positive Education: Education Learning/educational needs: Home exercise program;Plan of Care;Changes in Plan of Care;Posture;BodyMechanics;Gait Training TREATMENT: PT Treatment Interventions: Therapeutic Exercise Evaluation Therapeutic Exercise: 1: *SKC on R 3x10, 5 sec holds (cuing for proper form) 2: *Fig 4 piriformis stretch 3x30 sec (cuing for proper form) 3: *SL hip abduction 3x10 4: *Clamshells 3x10 5: *Glute bridging 3x10 6: *Step ups onto 6 3x10 7: *Adductor iso's/pillow squeeze 3x10, 5 sec holds 8: Discussed at length purpose of exercises, not pushing into pain, as well as aquatic exercises athome Skilled Intervention: Patient was educated in proper exercise technique and purpose for exercises. Skilled judgment was provided in selection of appropriate interventions. Provided written instruction for home exercise program to facilitate proper performance and compliance. Correct performance of therapeutic exercises was facilitated with verbal, visual and tactile cuing. Patient education as noted. Billing * Evaluation Low Complexity: 1 Unit Therapeutic Exercise Treatment Minutes: 26 Total Treatment Time Minutes (timed/untimed): 45 Dillan Noland PT [facility] + Plan note No data available for this section [facility] Evaluation noteThere may be information available, but it has not been provided by the sender.[facility] Work Phone: Evaluation note* Diagnosis Primary osteoarthritis of right hip- Primary Primary localized osteoarthrosis, pelvic region and thigh documented in this encounter [facility] noteNo assessment information availableWCleveland Clinic [facility] Work Phone: Evaluation note* Diagnosis Primary osteoarthritis of right hip- Primary Primary localized osteoarthrosis, pelvic region and thigh [facility]* Diagnosis Primary osteoarthritis of right hip- Primary Primary localized osteoarthrosis, pelvic region and thigh documented in this encounter [facility] note* Diagnosis Primary osteoarthritis of right hip- Primary Primary localized osteoarthrosis, pelvic region and thigh documented [facility]* Diagnosis Onset Date Resolution Status Toe pain, left noneactive Elevated glucose noneactive Menopausal symptoms noneacti ve Immunization due noneactive Establishing care with new doctor, encounter for noneactive Suspected sleep apnea noneac tive Essential hypertension nonea ctive [facility] Work Phone: Evaluation note* Diagnosis Onset Date Resolution Status Encounter for screening for malignant neoplasm of colo n acute [facility] Work Phone: Evaluation note* Diagnosis Onset Date Resolution Status Obesity with body mass index (BMI) of 30.0 to 39.9 acute Other obesity acute Prediabetes acute HTN (hypertension) chronic [facility] Work Phone: History and physical note Author Dexter Tao [facility] January 10, 2023 10:09am Note Date/Time January 10, 2023 10: 09am [facility] Medical Records Department [address] [place] [address] History & Physical Exam 01/10/23 1007 MR#: [id number] Acct: [id number] Name: KELL BURTON Rep #:[id number] : 1970 52 From: Dexter Tao DO PCP: Dr. Princess Souza MD Status:[facility] Location: [place] [address] HPI - General General Date of Admission: 01/10/23 Date of Service: 01/10/23 Chief Complaint: Screening colonoscopy HPI Narrative KELL BURTON, is a 52 F who presents today for screening colonoscopy. She has past medical history of mild hypertension. She does not have any abdominal pain. She is not having nausea vomiting or diarrhea. She does not have any lower GI bleeding or change in bowel habits. Overall she feels very well. [facility] Medical History Alcohol use Non-smoker Osteoarthritis Seasonal allergies Wears glasses Home Medications hydrochlorothiazide 25 mg tablet 25 mg PO DAILY #30 tabs 02/18/17 [Rx Last Taken Unknown] potassium chloride 10 mEq capsule,extended release 20 meq PO DAILY 08/23/22 [History Last Taken Unknown] Allergy/AdvReac Type Severity Reaction Status Date / Time tree and shrub pollen Allergy Mild SINUS Verified 01/10/23 09:52 CONGESTION Family History Father Pancreatic cancer Mother Hypertension Arthritis Multiple myeloma Crohn disease Osteoporosis Thyroid disorder Grandmother Breast cancer Brother Hypertension Grandmother COPD (chronic obstructive pulmonary disease) Surgical History History of hip replacement History of release of tendon uterine ablation uterine fibroid removal Social History adopted: No household members: spouse and children number of children: 3 current occupational status: employed current occupation: teacher - [employer] history of recent travel: No sexually active: Yes Smoking Status: Never smoker Electronic Cigarette Use: not used alcohol intake: current alcohol intake frequency: holidays/special occasions only substance use type: does not use what type of physical activity do you participate in: walking, yoga and weight training frequency: 1-2 times per week seatbelt use: always do you feel safe at home: Yes additional social history: - [place] ROS Review of Systems ROS Unobtainable: other Constitutional Constitutional: Denies fatigue, fever(s), poor appetite, weight gain or weight loss ENT HEENT: Denies mouth lesions Cardiovascular Cardiovascular: Denies abdominal bloating, abdominal edema or abdominal pain Respiratory/Chest Respiratory/Chest: Denies change in mental status, change in phlegm color, chestcongestion or chest tightness Gastrointestinal Gastrointestinal: Denies belching, bloating, change in bowel habits, change in stool character, chewing difficulty, coffee ground emesis, constipation, cramping, diarrhea, dyspepsia, dysphagia, early satiety, excessive flatus, fecalincontinence, heartburn, hematemesis, hematochezia, hemorrhoids, loose stools, melena, nausea, odynophagia, rectal bleeding, tenesmus, vomiting or weight changes Genitourinary Genitourinary: Denies abdominal discomfort, burning urination or itching Musculoskeletal Musculoskeletal: Reports as per HPI; Denies muscle weakness or myalgias Integumentary Integumentary: Denies jaundice Neurologic Neurologic: Denies lack of coordination or weakness Psychiatric Psychiatric: Denies confusion, depression, memory loss, mood swings, paranoia orsuicidal ideation Endocrine Endocrinology: Denies systems reviewed and no addt'l complaints, except as documented Hematologic/Lymphatic Hematologic/Lymphatic: Denies anemia, easy bleeding, easy bruising or lymphadenopathy Allergic/Immunologic Allergic/Immunologic: Denies systems reviewed and no addt'l complaints, except as documented Vital Signs Vital Signs Vital Signs: 01/10/23 09:52 01/10/23 09:52 Temperature 97.8 F Temperature Source Temporal Pulse Rate 81 Respiratory Rate 18 Respiratory Pattern Normal Blood Pressure 160/91 H Blood Pressure Mean 114 Blood Pressure Source Monitor Blood Pressure Position Semi-Fowlers Blood Pressure Location Right Arm Pulse Ox 99 Oxygen Delivery Method Room Air Weight Weight: 238 lb 1.588 oz Body Mass Index (BMI) 33.2 Physical Exam Const alert General Appearance: cooperative Orientation / Consciousness: oriented to person HEENT hearing grossly normal bilaterally Head and Scalp: normal to inspection Face and Sinus: face symmetric Nose: external nose normal Mouth: oral and palatal mucosa normal Eyes conjunctivae normal General Eye: normal appearance of both eyes Neck full ROM General: normal visual inspection Lymph Lymphatic: no lymphadenopathy noted Chest inspection of chest normal and palpation of chest normal Chest: symmetrical chest wall rise Resp normal respiratory effort Effort and Inspection: able to speak in complete sentences Cardio regular rate GI non-distended Percussion: normal to percussion Rectal Exam: deferred Neuro Speech: speech normal Gait (Neuro): normal gait Assessment & Plan Assessment/Plan (1) Encounter for screening for malignant neoplasm of colon: PLAN: She was explained alternatives, risk, benefits including not withstanding bleeding, infection, sepsis, perforation, need for emergent surgery . She will have an ASA of 2. 01/10/23 1009 <Electronically signed by Dexter Tao DO> Cosigner Signature (if applicable): CC: Dr. Princess Souza MD; Dexter Tao DO~ Signed [facility] Work Phone: Hospital Discharge instructions No data available for this section [facility] Instructions* Instruction Description Start Date Completed [facility] Work Phone: Progress note No data available for this section [facility] Reason for referral (narrative)No reason for referral information availableWC[facility] Work Phone: Chief Complaint Chief Complaint Description Start Date right hip pain Preliminary chief co mplaint data, not yet signed by the author as of Advance Directives No Advanced Directives Records Found Advance Directive Response Recorded Date/ Time Living Will No August 25, 2020 9:22am Power of Instrument Tester No August 25 9:22am Advance Directive Response Recorded Date/ Time Name of Medical Power of Instrument Tester January 04, 2023 10:47am Living Will Yes January 04, 2023 10:47am Power of Instrument Tester Yes January 04 10:47am Advance Directive Response Recorded Date/ Time Living Will Yes January 04, 2023 10:47am Power of Instrument Tester Yes January 04 10:47am Advance Directive Response Recorded Date/ Time Living Will Yes January 04, 2023 10:47am Do you have a Healthcare Power of Instrument Tester? Yes January 04, 2023 10:47am Family History No Family History Records Found Relationship Condition Age at Onset Recorded Date/T cheryl father Malignant neoplasm of pancreas Unknown mother Hypertension Unknown Arthritis Unknown Multiple myeloma Unknown Crohn's disease Unknown grandmother Malignant neoplasm of breast Unknown Relationship Condition Age at Onset Recorded Date/T cheryl father Malignant neoplasm of pancreas Unknown mother Hypertension Unknown Arthritis Unknown Multiple myeloma Unknown Crohn's disease Unknown Osteoporosis Unknown Disorder of thyroid Unknown grandmother Malignant neoplasm of breast Unknown brother Hypertension Unknown grandmother Chronic obstructive pulmonary disease Unk nown Chief Complaint and Reason for Visit Chief Complaint SCREENING Chief Complaint DIRECTOR SECURITY MANAGEMENT. EST CARE - NEEDS PPW Reason for Visit Toe pain, left Elevated glucose Menopausal symptoms Immunization due Establishing care with new doctor, encounter for Suspected sleep apnea Essential hypertension Chief Complaint Amb Documentation Reason for Visit Encounter for screen ing for malignant neoplasm of colon Chief Complaint Amb Documentation SCREENING Reason for Visit Encounter for screen ing for malignant neoplasm of colon Chief Complaint Initial Weight Manag ement Appt. OBESITY/E ORDERS Reason for Visit Obesity with body ma ss index (BMI) of 30.0 to 39.9 Other obesity Prediabetes HTN (hypertension) Chief Complaint Admit Date 4 wk fu June 26, 2024 3 :00pm 5 wk med check July 31, 2024 1:16pm 4 wk med check August 25, 2024 10: 40am 8 wk fu September 24, 2024 3:2 2pm 6 M FU October 07, 2024 7:2 3am Reason for Visit Admit Date Obesity with body mass index (BMI) of 30 .0 to 39.9 June 26, 2024 3:00pm Other obesity June 26, 2024 3 :00pm Prediabetes June 26, 2024 3 :00pm HTN (hypertension) June 26, 2024 3 :00pm Obesity with body mass index (BMI) of 30 .0 to 39.9 July 31, 2024 1:16pm Other obesity July 31, 2024 1:16pm Prediabetes July 31, 2024 1:16pm HTN (hypertension) July 31, 2024 1:16pm Obesity with body mass index (BMI) of 30 .0 to 39.9 August 25, 2024 10:40am Other obesity August 25, 2024 10: 40am Prediabetes August 25, 2024 10: 40am HTN (hypertension) August 25, 2024 10: 40am Obesity with body mass index (BMI) of 30 .0 to 39.9 September 24, 2024 3:22pm Other obesity September 24, 2024 3:2 2pm Prediabetes September 24, 2024 3:2 2pm HTN (hypertension) September 24, 2024 3:2 2pm Prediabetes October 07, 2024 7:2 3am Sleep concern October 07, 2024 7:2 3am Screening for depression October 07 7:23am Essential hypertension October 07, 2024 7:23am Immunity status testing October 07, 2024 7:23am Obesity (BMI 30-39.9) October 07, 2024 7 :23am Chief Complaint Admit Date 5 wk med check July 31, 2024 1:16pm 4 wk med check August 25, 2024 10: 40am 8 wk fu September 24, 2024 3:2 2pm 6 M FU October 07, 2024 7:2 3am F/U November 26, 2024 10:5 7am Reason for Visit Admit Date Obesity with body mass index (BMI) of 30 .0 to 39.9 July 31, 2024 1:16pm Other obesity July 31, 2024 1:16pm Prediabetes July 31, 2024 1:16pm HTN (hypertension) July 31, 2024 1:16pm Obesity with body mass index (BMI) of 30 .0 to 39.9 August 25, 2024 10:40am Other obesity August 25, 2024 10: 40am Prediabetes August 25, 2024 10: 40am HTN (hypertension) August 25, 2024 10: 40am Obesity with body mass index (BMI) of 30 .0 to 39.9 September 24, 2024 3:22pm Other obesity September 24, 2024 3:2 2pm Prediabetes September 24, 2024 3:2 2pm HTN (hypertension) September 24, 2024 3:2 2pm Prediabetes October 07, 2024 7:2 3am Sleep concern October 07, 2024 7:2 3am Screening for depression October 07 7:23am Essential hypertension October 07, 2024 7:23am Immunity status testing October 07, 2024 7:23am Obesity (BMI 30-39.9) October 07, 2024 7 :23am Obesity with body mass index (BMI) of 30 .0 to 39.9 November 26, 2024 10:57am Other obesity November 26, 2024 10:5 7am Prediabetes November 26, 2024 10:5 7am HTN (hypertension) November 26, 2024 10:5 7am Chief Complaint Admit Date 8 wk fu September 24, 2024 3:2 2pm 6 M FU October 07, 2024 7:2 3am F/U November 26, 2024 10:5 7am 7 wk WM F/U January 15, 2025 9:2 6am Reason for Visit Admit Date Obesity with body mass index (BMI) of 30 .0 to 39.9 September 24, 2024 3:22pm Other obesity September 24, 2024 3:2 2pm Prediabetes September 24, 2024 3:2 2pm HTN (hypertension) September 24, 2024 3:2 2pm Prediabetes October 07, 2024 7:2 3am Sleep concern October 07, 2024 7:2 3am Screening for depression October 07 7:23am Essential hypertension October 07, 2024 7:23am Immunity status testing October 07, 2024 7:23am Obesity (BMI 30-39.9) October 07, 2024 7 :23am Obesity with body mass index (BMI) of 30 .0 to 39.9 November 26, 2024 10:57am Other obesity November 26, 2024 10:5 7am Prediabetes November 26, 2024 10:5 7am HTN (hypertension) November 26, 2024 10:5 7am Obesity with body mass index (BMI) of 30 .0 to 39.9 January 15, 2025 9:26am Other obesity January 15, 2025 9:2 6am Prediabetes January 15, 2025 9:2 6am HTN (hypertension) January 15, 2025 9:2 6am Chief Complaint Admit Date F/U November 26, 2024 10:5 7am 7 wk WM F/U January 15, 2025 9:2 6am 4 WK F/U February 12, 2025 2:39pm Reason for Visit Admit Date Obesity with body mass index (BMI) of 30 .0 to 39.9 November 26, 2024 10:57am Other obesity November 26, 2024 10:5 7am Prediabetes November 26, 2024 10:5 7am HTN (hypertension) November 26, 2024 10:5 7am Caregiver stress January 15, 2025 9:2 6am Obesity with body mass index (BMI) of 30 .0 to 39.9 January 15, 2025 9:26am Other obesity January 15, 2025 9:2 6am Prediabetes January 15, 2025 9:2 6am HTN (hypertension) January 15, 2025 9:2 6am Caregiver stress February 12, 2025 2:39pm Obesity with body mass index (BMI) of 30 .0 to 39.9 February 12, 2025 2:39pm Other obesity February 12, 2025 2:39pm Prediabetes February 12, 2025 2:39pm HTN (hypertension) February 12, 2025 2:39pm Chief Complaint Admit Date F/U November 26, 2024 10:5 7am 7 wk WM F/U January 15, 2025 9:2 6am 4 WK F/U February 12, 2025 2:39pm SCREENING March 18, 2025 7: 19am 5wk FU March 18, 2025 8: 33am Reason for Visit Admit Date Obesity with body mass index (BMI) of 30 .0 to 39.9 November 26, 2024 10:57am Other obesity November 26, 2024 10:5 7am Prediabetes November 26, 2024 10:5 7am HTN (hypertension) November 26, 2024 10:5 7am Caregiver stress January 15, 2025 9:2 6am Obesity with body mass index (BMI) of 30 .0 to 39.9 January 15, 2025 9:26am Other obesity January 15, 2025 9:2 6am Prediabetes January 15, 2025 9:2 6am HTN (hypertension) January 15, 2025 9:2 6am Caregiver stress February 12, 2025 2:39pm Obesity with body mass index (BMI) of 30 .0 to 39.9 February 12, 2025 2:39pm Other obesity February 12, 2025 2:39pm Prediabetes February 12, 2025 2:39pm HTN (hypertension) February 12, 2025 2:39pm Caregiver stress March 18, 2025 8: 33am Obesity with body mass index (BMI) of 30 .0 to 39.9 March 18, 2025 8:33am Other obesity March 18, 2025 8: 33am Prediabetes March 18, 2025 8: 33am HTN (hypertension) March 18, 2025 8: 33am Chief Complaint Admit Date 7 wk WM F/U January 15, 2025 9:2 6am 4 WK F/U February 12, 2025 2:39pm SCREENING March 18, 2025 7: 19am 5wk FU March 18, 2025 8: 33am 6 m fu April 09, 2025 7 :23am Reason for Visit Admit Date Caregiver stress January 15, 2025 9:2 6am Other obesity January 15, 2025 9:2 6am Prediabetes January 15, 2025 9:2 6am HTN (hypertension) January 15, 2025 9:2 6am Obesity with body mass index (BMI) of 30 .0 to 39.9 January 15, 2025 9:26am Caregiver stress February 12, 2025 2:39pm Other obesity February 12, 2025 2:39pm Prediabetes February 12, 2025 2:39pm HTN (hypertension) February 12, 2025 2:39pm Obesity with body mass index (BMI) of 30 .0 to 39.9 February 12, 2025 2:39pm Caregiver stress March 18, 2025 8: 33am Other obesity March 18, 2025 8: 33am Prediabetes March 18, 2025 8: 33am HTN (hypertension) March 18, 2025 8: 33am Obesity with body mass index (BMI) of 30 .0 to 39.9 March 18, 2025 8:33am Prediabetes April 09, 2025 7 :23am Screening for cardiovascular condition O ctober 2024 7:23am Overweight (BMI 25.0-29.9) April 09, 2025 7:23am Grief April 09, 2025 7 :23am Family history of osteoporosis March 132024 7:23am Essential hypertension April 09 7:23am Left shoulder pain April 09, 2025 7 :23am Summary Purpose Additional Source Comments Reason for Visit (unrecogniz ed section and content) Reason Comments PT Progress Note Specialty Diagnoses / Procedures Referred By Contac t Referred To Contact Physical Therapy / PHYSICAL THERAPY Diagnoses hip pain, gait strenghtening Procedures NEW RS PT ORTH Shameka Arreguin APRN.BROADCAST OPERATIONS ENGINEER [address] [place] [address] Dillan Noland PT Referral ID Status Reason Start Date Expiration Date V isits Requested Visits Authorized [id number] Authorized 06/11/2021 06/10/2022 99 999 Reason Comments Physical Therapy Reason For Visit Description Start Date New Complaint Preliminary reason f or visit data, not yet signed by the author as of right hip pain Reason Comments PT Eval Source Comments (unrecognize d section and content) In the event this informatio n is protected by the Federal Confidentiality of Alcohol and Drug Abuse Patient Records regulations: The Federal rules restrict any use of the information to criminally investigate or prosecute any alcohol or drug abuse patient.[facility] the event this information is protected by the Federal Confidentiality of Alcohol and Drug Abuse Patient Records regulations: The Federal rules restrict any use of the information to criminally investigate or prosecute any alcohol or drug abuse patient.[facility] the event this information is protected by the Federal Confidentiality of Alcohol and Drug Abuse Patient Records regulations: The Federal rules restrict any use of the information to criminally investigate or prosecute any alcohol or drug abuse patient.[facility] the event this information is protected by the Federal Confidentiality of Alcohol and Drug Abuse Patient Records regulations: The Federal rules restrict any use of the information to criminally investigate or prosecute any alcohol or drug abuse patient.[facility] the event this information is protected by the Federal Confidentiality of Alcohol and Drug Abuse Patient Records regulations: The Federal rules restrict any use of the information to criminally investigate or prosecute any alcohol or drug abuse patient.[facility] Goals (unrecognized section and content) Goals may be documented in a n alternate section No data available for this sectionGoals may be documented in an alternate sectionGoals may be documented in an alternate sectionGoals may be documented in an alternate sectionGoals may be documented in an alternate sectionGoals may be documented in an alternate sectionGoals may be documented in an alternate sectionGoals may be documented in an alternate sectionGoals may be documented in an alternate section Patient Care team informatio n (unrecognized section and content) Team Status: Active Member Role Status Dates Dr. Danial Zaidi MD Family Provider Active Dr. Princess Souza MD Primary Care Provider Active Team Status: Inactive Member Role Status Dates Dr. Danial Zaidi MD Primary Care Provider, Referring Provider Active Dr. Princess Souza MD Attending Provider Active Team Status: Inactive Member Role Status Dates Dr. Princess Souza MD Primary Care Pro vider, Attending Provider, Referring Provider Active Team Status: Active Member Role Status Dates Dr. Princess Souza MD Primary Care Provider Active Mady Andre Attending Provider Active Team Status: Active Member Role Status Dates Dr. Princess Souza MD Primary Care Provider, Referri ng Provider Active Dr. Dexter Tao DO Attending Provider, Other Prov ider Active Team Status: Inactive Member Role Status Dates Dr. Princess Souza MD Primary Care Provider, Referri ng Provider Active Dr. Dexter aTo DO Attending Provider Active Team Status: Inactive Member Role Status Dates Dr. Princess Souza MD Primary Care Provider Active Dr. Kell Ellington DO Attending Provider, Refe rring Provider Active Team Status: Inactive Member Role Status Dates Dr. Princess Souza MD Primary Care Provider, Referri ng Provider Active Dr. Chrystal Tinajero MD Attending Provider Active Team Status: Inactive Member Role Status Dates Dr. Princess Souza MD Primary Care Provider Active Dr. Chrystal Tinajero MD Attending Provider, Referr ing Provider Active Team Status: Inactive Member Role Status Dates TRAVIS Chatman Attending Provider Active Start: June 26, 2024 End: June 26, 2024 Team Status: Inactive Member Role Status Dates TRAVIS Chatman Attending Provider Active Start: July 31, 2024 End: July 31, 2024 Team Status: Inactive Member Role Status Dates Dr. Chrystal Tinajero MD Attending Provider Active Start: August 25, 2024 End: August 25, 2024 Team Status: Inactive Member Role Status Dates TRAVIS Chatman Attending Provider Active Start: September 24, 2024 End: September 24, 2024 Team Status: Inactive Member Role Status Dates Dr. Princess Souza MD Attending Provider Active Start: October 07, 2024 End: October 07, 2024 Team Status: Inactive Member Role Status Dates Dr. Princess Souza MD Primary Care Provider Active Start: October 07, 2024 End: October 07, 2024 Dr. Princess Souza MD Attending Provider Active Start: October 07, 2024 End: October 07, 2024 Team Status: Inactive Member Role Status Dates Dr. Princess Souza MD Primary Care Provider Active Start: November 26, 2024 End: November 26, 2024 Dr. Princess Souza MD Referring Provider Active Start: November 26, 2024 End: November 26, 2024 TRAVIS Chatman Attending Provider Active Start: November 26, 2024 End: November 26, 2024 Team Status: Active Member Role/Relationship Status Dates Dr. Danial Zaidi MD Family Provider Active Dr. Princess Souza MD Primary Care Provider Active Team Status: Inactive Member Role/Relationship Status Dates TRAVIS Chatman Attending Provider Active Start: September 24, 2024 End: September 24, 2024 Team Status: Inactive Member Role/Relationship Status Dates Dr. Princess Souza MD Attending Provider Active Start: October 07, 2024 End: October 07, 2024 Team Status: Inactive Member Role/Relationship Status Dates Dr. Princess Souza MD Primary Care Provider Active Start: October 07, 2024 End: October 07, 2024 Dr. Princess Souza MD Attending Provider Active Start: October 07, 2024 End: October 07, 2024 Team Status: Inactive Member Role/Relationship Status Dates Dr. Princess Souza MD Primary Care Provider Active Start: November 26, 2024 End: November 26, 2024 Dr. Princess Souza MD Referring Provider Active Start: November 26, 2024 End: November 26, 2024 Sonia Barkman , DIRECTOR SECURITY MANAGEMENT-C Attending Provider Active Start: November 26, 2024 End: November 26, 2024 Team Status: Inactive Member Role/Relationship Status Dates Dr. Princess Souza MD Primary Care Provider Active Start: January 15, 2025 End: January 15, 2025 Dr. Princess Souza MD Referring Provider Active Start: January 15, 2025 End: January 15, 2025 TRAVIS Chatman Attending Provider Active Start: January 15, 2025 End: January 15, 2025 Team Status: Inactive Member Role/Relationship Status Dates Dr. Princess Souza MD Primary Care Provider Active Start: November 26, 2024 End: November 26, 2024 Dr. Princess Souza MD Referring Provider Active Start: November 26, 2024 End: November 26, 2024 TRAVIS Chatman Attending Provider Active Start: November 26, 2024 End: November 26, 2024 Team Status: Inactive Member Role/Relationship Status Dates Dr. Princess Souza MD Primary Care Provider Active Start: January 15, 2025 End: January 15, 2025 Dr. Princess Souza MD Referring Provider Active Start: January 15, 2025 End: January 15, 2025 TRAVIS Chatman Attending Provider Active Start: January 15, 2025 End: January 15, 2025 Team Status: Inactive Member Role/Relationship Status Dates Dr. Princess Souza MD Primary Care Provider Active Start: February 12, 2025 End: February 12, 2025 Dr. Princess Souza MD Referring Provider Active Start: February 12, 2025 End: February 12, 2025 KARISSA ChatmanC Attending Provider Active Start: February 12, 2025 End: February 12, 2025 Team Status: Active Member Role/Relationship Status Dates Dr. Princess Souza MD Primary care physician Active Team Status: Inactive Member Role/Relationship Status Dates Dr. Princess Souza MD Primary care physician Active Start: November 26, 2024 End: November 26, 2024 Dr. Princess Souza MD Referring Provider Active Start: November 26, 2024 End: November 26, 2024 TRAVIS Chatman Attending physician Active Start: November 26, 2024 End: November 26, 2024 Team Status: Inactive Member Role/Relationship Status Dates Dr. Princess Souza MD Primary care physician Active Start: January 15, 2025 End: January 15, 2025 Dr. Princess Souza MD Referring Provider Active Start: January 15, 2025 End: January 15, 2025 TRAVIS Chatman Attending physician Active Start: January 15, 2025 End: January 15, 2025 Team Status: Inactive Member Role/Relationship Status Dates Dr. Princess Souza MD Primary care physician Active Start: February 12, 2025 End: February 12, 2025 Dr. Princess Souza MD Referring Provider Active Start: February 12, 2025 End: February 12, 2025 TRAVIS Chatman Attending physician Active Start: February 12, 2025 End: February 12, 2025 Team Status: Active Member Role/Relationship Status Dates Dr. Princess Souza MD Primary care physician Active Start: March 18, 2025 Dr. Princess Souza MD Attending physician Active Start: March 18, 2025 Dr. Princess Souza MD Referring Provider Active Start: March 18, 2025 Team Status: Inactive Member Role/Relationship Status Dates Dr. Princess Souza MD Primary care physician Active Start: March 18, 2025 End: March 18, 2025 Dr. Princess Souza MD Referring Provider Active Start: March 18, 2025 End: March 18, 2025 TRAVIS Chatman Attending physician Active Start: March 18, 2025 End: March 18, 2025 Team Status: Inactive Member Role/Relationship Status Dates Dr. Princess Souza MD Primary care physician Active Start: January 15, 2025 End: January 15, 2025 Dr. Princess Souza MD Referring Provider Active Start: January 15, 2025 End: January 15, 2025 TRAVIS Chatman Attending physician Active Start: January 15, 2025 End: January 15, 2025 Team Status: Inactive Member Role/Relationship Status Dates Dr. Princess Souza MD Primary care physician Active Start: February 12, 2025 End: February 12, 2025 Dr. Princess Souza MD Referring Provider Active Start: February 12, 2025 End: February 12, 2025 TRAVIS Chatman Attending physician Active Start: February 12, 2025 End: February 12, 2025 Team Status: Inactive Member Role/Relationship Status Dates Dr. Princess Souza MD Primary care physician Active Start: March 18, 2025 End: March 18, 2025 Dr. Princess Souza MD Attending physician Active Start: March 18, 2025 End: March 18, 2025 Dr. Princess Souza MD Referring Provider Active Start: March 18, 2025 End: March 18, 2025 Team Status: Inactive Member Role/Relationship Status Dates Dr. Princess Souza MD Primary care physician Active Start: March 18, 2025 End: March 18, 2025 Dr. Princess Souza MD Referring Provider Active Start: March 18, 2025 End: March 18, 2025 TRAVIS Chatman Attending physician Active Start: March 18, 2025 End: March 18, 2025 Team Status: Inactive Member Role/Relationship Status Dates Dr. Princess Souza MD Primary care physician Active Start: April 09, 2025 End: April 09, 2025 Dr. Princess Souza MD Attending physician Active Start: April 09, 2025 End: April 09, 2025 Dr. Princess Souza MD Referring Provider Active Start: April 09, 2025 End: April 09, 2025 INFORMATION SOURCE (unrecogn ized section and content) DATE CREATED AUTHOR 08/25/2022 [facility] ([place]) DATE CREATED AUTHOR AUTHOR'S ORGANIZ ATION 11/11/2023 [facility] DATE CREATED AUTHOR AUTHOR'S ORGANIZ ATION 04/23/2025 [facility] FOR RECORDS PERTAINING TO PATIENTS WHO ARE OR HAVE BEEN ENROLLED IN A CHEMICAL DEPENDENCY/SUBSTANCEABUSE PROGRAM, SOME INFORMATION MAY BE OMITTED. This clinical summary was aggregated from multiple sources. Caution should be exercised in using it in the provision of clinical care. This summary normalizes information from multiple sources, and as a consequence, information in this document may materially change the coding, format and clinical context of patient data. In addition, data may be omitted in some cases. CLINICAL DECISIONS SHOULD BE BASED ON THE PRIMARY CLINICAL RECORDS. [facility]. provides no warranty or guarantee of the accuracy or completeness of information in this document.
[2025-05-06 07:02] LABS: Hematocrit 40.9 % (37-47); Hemoglobin 13.6 g/dL (12.0-15.0); Immature Granulocytes Count 0.020 X10^3/uL (0.0-0.0); Mean Corp Hgb Conc 33.3 g/dL (32-36); Mean Corpuscular Volume 89.3 fL (81-99); Mean Platelet Vol. 9.0 fl (6.2-12.0); NRBC Flagged by Analyzer 0 % (0-5); Platelet Count 324 K/mm3 (150-450); RBC Distribution Width CV 12.3 % (11.6-14.6); RBC Distribution Width SD 40.1 fl (35.1-43.9); Red Blood Count 4.58 M/mm3 (4.2-5.4); White Blood Count 8.3 K/mm3 (4.4-11.0)
[2025-05-06 07:28] LABS: AST(SGOT) 19 U/L (<=31); Alanine Aminotransfer ALT/SGPT 13 U/L (<=34); Albumin, Serum 4.4 g/dL (3.5-5.0); Alkaline Phosphatase 80 U/L (35-104); Anion Gap 11 (5-15); BUN 12 mg/dL (4-19); BUN/Creat Ratio 13.6 RATIO (10-20); Calcium,Total 9.4 mg/dL (7.6-11.0); Carbon Dioxide 27.3 mmol/L (21.0-32.0); Chloride 104 mmol/L (98-108); Globulin 3.3 g/dL (2.2-4.2); Glucose 127 mg/dL (70-99); Potassium 3.3 mmol/L (3.3-5.1)
--- NOTE | 2025-05-06 07:40 | BD_ITS ---
PROCEDURE: DEXA BONE DENSITY STUDY 05/06/2025 REASON FOR EXAM: FH OSTEOPOROSIS F, age 54 y/o . Postmenopausal. TECHNIQUE: Procedure Code: BDDBD Modality: DX Procedure: DEXA BONE DENSITY STUDY COMPARISON: None FINDINGS: BMD and T-SCORES Lumbar spine: 1.147 g/cm2, T-score 0.9 Levels: L1 through L4 Left 1/3 radius: 0.753 g/cm2, T-score 1.0 The World Health Organization has defined the following categories based on bone density: Normal bone density: T-score equal to or greater than -1.0 Osteopenia: T-score between -1.0 and -2.5 Osteoporosis: T-score equal to or less than -2.5 FRAX (or Comparable) Fracture Risk Assessment: FRAX not reported due to no recordable hip. (Note: FRAX is not to be reported in setting of normal range bone density, osteoporosis on DEXA, known history of osteoporosis, prior osteoporotic hip or vertebral fracture, or for any patient undergoing pharmacological treatment for bone loss.) The National Osteoporosis Foundation (NOF) recommends pharmacological treatment for patients with a FRAX 10-year risk of 3% or higher for a hip fracture, or 20% or higher for a major osteoporotic fracture, to prevent osteoporosis and reduce fracture risk. The patient does not meet the pharmacological treatment recommendations for prevention of osteoporosis. BD/Dexa Bone Density Study IMPRESSION: NORMAL T-SCORES. Recommend follow-up as clinically warranted. Reading Location: [id number]
[2025-05-06 07:54] LABS: Cholesterol 203 mg/dL (<=200); Low Density Lipoprotein Calc. 128 mg/dL; Triglycerides 76 mg/dL; Very Low Density Lipoprotein 15 mg/dL (5-40); cholesterol:hdl ratio screen 3.34
== END | disposition home or self-care (01) ==
PROVIDERS: PCP Internal Medicine; Referring Provider Internal Medicine; Visit Provider Internal Medicine
DX: Z78.0 Asymptomatic menopausal state (principal); I10 Essential (primary) hypertension; Z13.6 Encounter for screening for cardiovascular disorders; Z82.62 Family history of osteoporosis
CPT/HCPCS: 36415; 77080; 80053; 80061; 85025